=== PATIENT | male | born 1985 | race Caucasian/White ===

== ENCOUNTER 2016-08-26 20:36 | Emergency (ER) | payer MEDICAID, OTHER ==
[2016-08-26] MEDS ORDERED: Sodium Chloride 0.9% 1,000 ML IV ONE ×2 (20:41→21:56)
[2016-08-26] MEDS ORDERED: Sodium Chloride 0.9% 2.5 ML Syringe FLUSH PRN (20:41)
[2016-08-26] MEDS ORDERED: Sodium Chloride 0.9% 10 ML Syringe FLUSH PRN (20:41)
[2016-08-26] MEDS ORDERED: Thiamine 100 MG in Sodium Chloride 0.9% 100 ML IV ONE (20:41)
--- NOTE | 2016-08-26 20:44 | EDM.PDOC ---
ED HPI GENERAL MEDICAL PROBLEM - General Chief Complaint: Drug or Alcohol Abuse Stated Complaint: ALCOHOL WITHDRAWS Time Seen by Provider: 08/26/16 20:38 - History of Present Illness INITIAL COMMENTS - FREE TEXT/NARRATIVE: HISTORY AND PHYSICAL: History of present illness: Patient 31-year-old white male presents with a concern of alcohol abuse patient states she's been drinking has history of alcohol abuse he is down here for the last several weeks looking for work he is originally from [facility] he called paramedics from the hotel. He denies drug abuse or other concern Review of systems: As per history of present illness and below otherwise all systems reviewed and negative. Past medical history: As per history of present illness and as reviewed below otherwise noncontributory. Surgical history: As per history of present illness and as reviewed below otherwise noncontributory. Social history: No reported history of drug or alcohol abuse. Family history: As per history of present illness and as reviewed below otherwise noncontributory. Physical exam: HEENT: Atraumatic, normocephalic, pupils reactive, negative for conjunctival pallor or scleral icterus, mucous membranes moist, throat clear, neck supple, nontender, trachea midline. Lungs: Clear to auscultation, breath sounds equal bilaterally, chest nontender. Heart: S1S2, regular, negative for clicks, rubs, or JVD. Abdomen: Soft, nondistended, nontender. Negative for masses or hepatosplenomegaly. Negative for costovertebral tenderness. Pelvis: Stable nontender. Genitourinary: Deferred. Rectal: Deferred. Extremities: Atraumatic, negative for cords or calf pain. Neurovascular unremarkable. Neuro: Awake, answers questions follows commands moves all extremities limited but grossly nonfocal exam Diagnostics: CBC CMP Therapeutics: Normal saline 1 L bolus thiamine 100 mg IV Impression: #1 alcohol abuse Definitive disposition and diagnosis as appropriate pending reevaluation and review of above. - Related Data Allergies Allergy/AdvReac Type Severity Reaction Status Date / Time No Known Allergies Allergy Verified 08/26/16 21:14 Home Meds: Home Meds . [No Known Home Meds] 08/26/16 [History] Past Medical History HEENT History: Reports: None Cardiovascular History: Reports: None Respiratory History: Reports: None Gastrointestinal History: Reports: None Genitourinary History: Reports: None Musculoskeletal History: Reports: None Neurological History: Reports: Seizure, Other (See Below) Other Neuro History: alcohol induce seizure Psychiatric History: Reports: Addiction, Other (See Below) Other Psychiatric History: etoh abuse, states " have gone through withdrawls in the past". when pt asked if this felt like withdrawls he stated "no". Endocrine/Metabolic History: Reports: None Hematologic History: Reports: None Immunologic History: Reports: None Oncologic (Cancer) History: Reports: None Dermatologic History: Reports: None - Infectious Disease History Infectious Disease History: Reports: None - Past Surgical History HEENT Surgical History: Reports: None Cardiovascular Surgical History: Reports: None Respiratory Surgical History: Reports: None GI Surgical History: Reports: None Male Surgical History: Reports: None Neurological Surgical History: Reports: None Musculoskeletal Surgical History: Reports: None Oncologic Surgical History: Reports: None Social & Family History - Family History Cardiac: Reports: [place] Neurological: Reports: TIA Psychiatric: Reports: Other (See Below) Other Psychiatric Family History: etoh abuse - Tobacco Use Smoking Status *Q: Never Smoker Second Hand Smoke Exposure: No - Alcohol Use Days Per Week of Alcohol Use: 7 Number of Drinks Per Day: 12 Total Drinks Per Week: 84 - Recreational Drug Use Recreational Drug Use: No ED ROS GENERAL - Review of Systems Review Of Systems: ROS reveals no pertinent complaints other than HPI. ED EXAM, GENERAL - Physical Exam Exam: See Below (See dictation) Course - Vital Signs Last Recorded V/S: Last Vital Signs Temp 36.6 C 08/26/16 20:37 Pulse 89 08/27/16 02:46 Resp 14 08/27/16 02:46 BP 137/97 H 08/27/16 02:46 Pulse Ox 97 08/27/16 02:46 - Orders/Labs/Meds Labs: Laboratory Tests 08/26/16 08/26/16 Range/Units 20:45 20:45 WBC 10.81 (4.0-11.0) K/uL RBC 4.94 (4.50-5.90) M/uL Hgb 16.9 (13.0-17.0) g/dL Hct 49.2 (38.0-50.0) % MCV 99.6 H (80.0-98.0) fL MCH 34.2 H (27.0-32.0) pg MCHC 34.3 (31.0-37.0) g/dL RDW Std Deviation 49.3 (28.0-62.0) fl RDW Coeff of Jennifer 14 (11.0-15.0) % Plt Count 226 (150-400) K/uL MPV 9.80 (7.40-12.00) fL Neut % (Auto) 45.5 L (48.0-80.0) % Lymph % (Auto) 40.5 H (16.0-40.0) % Calloway % (Auto) 9.6 (0.0-15.0) % Eos % (Auto) 3.4 (0.0-7.0) % Baso % (Auto) 1.0 (0.0-1.5) % Neut # (Auto) 4.9 (1.4-5.7) K/uL Lymph # (Auto) 4.4 H (0.6-2.4) K/uL Calloway # (Auto) 1.0 H (0.0-0.8) K/uL Eos # (Auto) 0.4 (0.0-0.7) K/uL Baso # (Auto) 0.1 (0.0-0.1) K/uL Nucleated RBC % 0.0 /100WBC Nucleated RBCs # 0 K/uL Sodium 141 (136-146) mmol/L Potassium 4.0 (3.5-5.1) mmol/L Chloride 106 (98-110) mmol/L Carbon Dioxide 20 L (21-31) mmol/L BUN 5 L (6.0-23.0) mg/dL Creatinine 0.8 (0.6-1.5) mg/dL Est Cr Clr Drug Dosing 131.34 mL/min Estimated GFR (MDRD) > 60.0 ml/min Glucose 115 H (60-110) mg/dL Calcium 8.6 L (8.8-10.8) mg/dL Total Bilirubin 0.7 (0.1-1.5) mg/dL AST 227 H (5-40) IU/L ALT 102 H (8-54) IU/L Alkaline Phosphatase 164 H (40-150) Total Protein 7.8 (6.0-8.0) g/dL Albumin 3.7 (3.5-5.0) g/dL Globulin 4.1 H (2.0-3.5) g/dL Albumin/Globulin Ratio 0.9 L (1.3-2.8) Meds: Medications Discontinued Medications Generic Name Dose Route Start Last Admin Trade Name Matilde PRN Reason Stop Dose Admin Sodium Chloride 1,000 mls @ 999 mls/hr 08/26/16 20:41 08/26/16 20:48 Normal Saline IV 08/26/16 21:41 999 mls/hr STAT ONE Administration Thiamine HCl 100 mg/ Sodium 101 mls @ 999 mls/hr 08/26/16 20:41 08/26/16 21: 05 Chloride IV 08/26/16 20:47 999 mls/hr ONETIME ONE Administration Sodium Chloride 1,000 mls @ 100 mls/hr 08/26/16 21:56 08/26/16 22:18 Normal Saline IV 08/27/16 07:55 100 mls/hr .BOLUS ONE Administration Sodium Chloride 10 ml 08/26/16 20:41 Saline Flush FLUSH ASDIRECTED PRN Keep Vein Open Sodium Chloride 2.5 ml 08/26/16 20:41 Saline Flush FLUSH ASDIRECTED PRN Keep Vein Open Departure - Departure Time of Disposition: 02:00 Disposition: Home, Self-Care 01 Condition: Good Clinical Impression: Alcohol abuse - Discharge Information Instructions: Alcohol Use Disorder, Panic Attacks, [id number], Alcohol Intoxication, [id number], Finding Treatment for Addiction Referrals: PCP,None [Primary Care Provider] - Forms: ED Department Discharge Additional Instructions: Medications as prescribed. Follow up with primary care doctor 24-48 hrs. Stop drinking alcohol. Return to ED as needed as discussed.
[2016-08-26 21:09] LABS: CHLORIDE,CL 106 mmol/L (98-110); SODIUM,NA 141 mmol/L (136-146)
[2016-08-27 02:48] VITALS: BP 137/97
== END 2016-08-27 02:46 | disposition home or self-care (01) ==
LOC: MW.ED 20:36
DX: F10.10 Alcohol abuse, uncomplicated (principal)
CPT/HCPCS: 36415; 80053; 85025; 96361; 96374; 99285; J3411; J7030; J7040; 99284

== ENCOUNTER 2016-09-21 15:48 | Emergency (ER) | payer MEDICAID, OTHER ==
[2016-09-21] MEDS ORDERED: Sodium Chloride 0.9% 1,000 ML IV ONE (16:00)
--- NOTE | 2016-09-21 16:38 | EDM.PDOC ---
ED HPI GENERAL MEDICAL PROBLEM - General Chief Complaint: Drug or Alcohol Abuse Stated Complaint: ALCOHOL WITHDRAW Time Seen by Provider: 09/21/16 15:49 Source of Information: Reports: Patient History Limitations: Reports: No Limitations - History of Present Illness INITIAL COMMENTS - FREE TEXT/NARRATIVE: History of present illness: []Patient arrived by ambulance stating that he feels like he is going to have a seizure. Patient is a known alcoholic who states he had his last alcoholic drink at 1:00 this afternoon. Patient has a primary care doctor in [facility] who he states he has not seen in 6 years but has been prescribing him Ativan. He has lived here and [facility] for the last 6 years and fills his prescriptions in [place]. Patient is requesting admission and detox. He was admitted in August of last year for similar reasons and discharged on Ativan. Patient also coughed on the medic that brought him in and she is concerned about communicable disease exposures. Review of systems: As per history of present illness and below otherwise all systems reviewed and negative. Past medical history: As per history of present illness and as reviewed below otherwise noncontributory. Surgical history: As per history of present illness and as reviewed below otherwise noncontributory. Social history: No reported history of drug or alcohol abuse. Family history: As per history of present illness and as reviewed below otherwise noncontributory. Physical exam: General: Well developed, well nourished in NAD HEENT: Atraumatic, normocephalic, pupils reactive, negative for conjunctival pallor or scleral icterus, mucous membranes moist, throat clear, neck supple, nontender, trachea midline. Lungs: Clear to auscultation, breath sounds equal bilaterally, chest nontender. Heart: S1S2, regular, negative for clicks, rubs, or JVD. Abdomen: Soft, nondistended, nontender. Negative for masses or hepatosplenomegaly. Negative for costovertebral tenderness. Pelvis: Stable nontender. Genitourinary: Deferred. Rectal: Deferred. Extremities: Atraumatic, negative for cords or calf pain. Neurovascular unremarkable. Neuro: Awake, alert, oriented. Cranial nerves II through XII unremarkable. Cerebellum unremarkable. Motor and sensory unremarkable throughout. Exam nonfocal. Diagnostics: []Labs drawn as well as an exposure panel. Alcohol levels for 454 LFTs are elevated suggesting chronic alcoholism. Therapeutics: []IV hydrated, observed no seizures while in the ED. Impression: []Alcoholic withdrawal symptoms, alcoholic liver disease Plan: []Follow-up PMD with PMD Definitive disposition and diagnosis as appropriate pending reevaluation and review of above. - Related Data Allergies Allergy/AdvReac Type Severity Reaction Status Date / Time No Known Allergies Allergy Verified 09/21/16 16:36 Home Meds: Home Meds LORazepam [Ativan] 09/21/16 [History] chlordiazePOXIDE [Librium] 10 mg PO TID PRN #15 cap 09/21/16 [Rx] Past Medical History - Past Health History Medical/Surgical History: Denies Medical/Surgical History HEENT History: Reports: None Cardiovascular History: Reports: None Respiratory History: Reports: None Gastrointestinal History: Reports: None Genitourinary History: Reports: None Musculoskeletal History: Reports: None Neurological History: Reports: Seizure, Other (See Below) Other Neuro History: alcohol induce seizure Psychiatric History: Reports: Addiction, Other (See Below) Other Psychiatric History: etoh abuse, states " have gone through withdrawls in the past". when pt asked if this felt like withdrawls he stated "no". Endocrine/Metabolic History: Reports: None Hematologic History: Reports: None Immunologic History: Reports: None Oncologic (Cancer) History: Reports: None Dermatologic History: Reports: None - Infectious Disease History Infectious Disease History: Reports: None - Past Surgical History HEENT Surgical History: Reports: None Cardiovascular Surgical History: Reports: None Respiratory Surgical History: Reports: None GI Surgical History: Reports: None Male Surgical History: Reports: None Neurological Surgical History: Reports: None Musculoskeletal Surgical History: Reports: None Oncologic Surgical History: Reports: None Social & Family History - Family History Family Medical History: Noncontributory Cardiac: Reports: [place] Neurological: Reports: TIA Psychiatric: Reports: Other (See Below) Other Psychiatric Family History: etoh abuse - Tobacco Use Smoking Status *Q: Never Smoker Second Hand Smoke Exposure: No - Caffeine Use Caffeine Use: Reports: None - Alcohol Use Days Per Week of Alcohol Use: 7 Number of Drinks Per Day: 12 Total Drinks Per Week: 84 - Recreational Drug Use Recreational Drug Use: No ED ROS GENERAL - Review of Systems Review Of Systems: See Below (See history of present illness) ED EXAM, GENERAL - Physical Exam Exam: See Below (See history of present illness) Course - Vital Signs Last Recorded V/S: Last Vital Signs Temp 36.6 C 09/21/16 16:30 Pulse 89 09/21/16 17:11 Resp 18 09/21/16 17:11 BP 104/64 09/21/16 17:11 Pulse Ox 95 09/21/16 17:11 - Orders/Labs/Meds Orders: Active Orders 24 hr Category Date Time Status HEP B SURFACE AB,QNT [REF] Stat Lab 09/21/16 16:10 Received HEPATITIS C AB [REF] Stat Lab 09/21/16 16:10 Received HIV12 AG/AB 4TH GEN W/REFLEX [CHEM] Stat Lab 09/21/16 16:10 Received Saline Lock Insert [OM.PC] Stat Oth 09/21/16 15:59 Ordered Labs: Laboratory Tests 09/21/16 Range/Units 16:10 Sodium 139 (136-146) mmol/L Potassium 3.7 (3.5-5.1) mmol/L Chloride 95 L (98-110) mmol/L Carbon Dioxide 25 (21-31) mmol/L BUN 6 (6.0-23.0) mg/dL Creatinine 0.8 (0.6-1.5) mg/dL Est Cr Clr Drug Dosing 131.34 mL/min Estimated GFR (MDRD) > 60.0 ml/min Glucose 106 (60-110) mg/dL Calcium 8.6 L (8.8-10.8) mg/dL Total Bilirubin 2.6 H (0.1-1.5) mg/dL AST 289 H (5-40) IU/L ALT 126 H (8-54) IU/L Alkaline Phosphatase 145 (40-150) Total Protein 8.2 H (6.0-8.0) g/dL Albumin 3.9 (3.5-5.0) g/dL Globulin 4.3 H (2.0-3.5) g/dL Albumin/Globulin Ratio 0.9 L (1.3-2.8) Ethyl Alcohol 454.5 mg/dL Meds: Medications Discontinued Medications Generic Name Dose Route Start Last Admin Trade Name Freq PRN Reason Stop Dose Admin Chlordiazepoxide HCl 10 mg 09/21/16 16:44 09/21/16 17:19 Librium PO 09/21/16 16:45 10 mg ONETIME ONE Administration Sodium Chloride 1,000 mls @ 999 mls/hr 09/21/16 16:00 09/21/16 16:28 Normal Saline IV 09/21/16 17:00 999 mls/hr .Bolus ONE Administration Departure - Departure Time of Disposition: 17:56 Disposition: Home, Self-Care 01 Condition: Good, Fair Clinical Impression: Alcoholism /alcohol abuse, Alcoholic liver disease, unspecified - Discharge Information Prescriptions: chlordiazePOXIDE [Librium] 10 mg PO TID PRN #15 cap PRN Reason: Agitation Referrals: PCP,None [Primary Care Provider] - Forms: ED Department Discharge Additional Instructions: The following information is given to patients seen in the emergency department who are being discharged to home. This information is to outline your options for follow-up care. We provide all patients seen in our emergency department with a follow-up referral. The need for follow-up, as well as the timing and circumstances, are variable depending upon the specifics of your emergency department visit. If you don't have a primary care physician on staff, we will provide you with a referral. We always advise you to contact your personal physician following an emergency department visit to inform them of the circumstance of the visit and for follow-up with them and/or the need for any referrals to a consulting specialist. The emergency department will also refer you to a specialist when appropriate. This referral assures that you have the opportunity for follow-up care with a specialist. All of these measure are taken in an effort to provide you with optimal care, which includes your follow-up. Under all circumstances we always encourage you to contact your private physician who remains a resource for coordinating your care. When calling for follow-up care, please make the office aware that this follow-up is from your recent emergency room visit. If for any reason you are refused follow-up, please contact the [facility] Emergency Department at and asked to speak to the emergency department charge nurse. Librium for withdrawal symptoms. Stop drinking alcohol. [facility] [address] [place] [id number] - My Orders Last 24 Hours: My Active Orders 09/21/16 15:59 Saline Lock Insert [OM.PC] Stat 09/21/16 16:10 HEP B SURFACE AB,QNT [REF] Stat HEPATITIS C AB [REF] Stat HIV12 AG/AB 4TH GEN W/REFLEX [CHEM] Stat - Assessment/Plan Last 24 Hours: My Active Orders 09/21/16 15:59 Saline Lock Insert [OM.PC] Stat 09/21/16 16:10 HEP B SURFACE AB,QNT [REF] Stat HEPATITIS C AB [REF] Stat HIV12 AG/AB 4TH GEN W/REFLEX [CHEM] Stat
[2016-09-21 16:43] LABS: CHLORIDE,CL 95 mmol/L (98-110); SODIUM,NA 139 mmol/L (136-146)
[2016-09-21] MEDS ORDERED: chlordiazePOXIDE 10 MG Cap PO ONE (16:44)
[2016-09-21 18:40] VITALS: BP 117/63
== END 2016-09-21 18:26 | disposition home or self-care (01) ==
LOC: MW.ED 15:48
DX: K70.9 Alcoholic liver disease, unspecified (principal); F10.239 Alcohol dependence with withdrawal, unspecified
CPT/HCPCS: 36415; 80053; 86706; 86803; 87389; 96360; 99285; A9270; G0480; J7040; 99283

== ENCOUNTER 2016-09-22 15:03 | Emergency (ER) | payer MEDICAID, OTHER ==
[2016-09-22] MEDS ORDERED: Ondansetron 4 MG Tab.DIS PO ONE ×3 (15:16→16:23)
--- NOTE | 2016-09-22 15:18 | EDM.PDOC ---
ED HPI GENERAL MEDICAL PROBLEM - General Chief Complaint: Drug or Alcohol Abuse Stated Complaint: WITHDRAWLS Time Seen by Provider: 09/22/16 15:30 Source of Information: Reports: Patient History Limitations: Reports: Intoxication - History of Present Illness INITIAL COMMENTS - FREE TEXT/NARRATIVE: History of present illness: []Patient has an admitted alcoholic who states that he has been receiving Ativan prescriptions from her primary care doctor in [place] for years. He arrived by EMS yesterday for the same reason of "not feeling well". Yesterday's alcohol level was 454 and his labs showed mild signs of alcoholic liver disease but otherwise normal. He was discharged and given a taxi ride home. He did not fill his prescription for Librium, he states that he drank at 2 PM today and again feels "not well". He has not had a seizure, trauma, vomiting, or syncope. He does complain of some nausea now. Review of systems: As per history of present illness and below otherwise all systems reviewed and negative. Past medical history: As per history of present illness and as reviewed below otherwise noncontributory. Surgical history: As per history of present illness and as reviewed below otherwise noncontributory. Social history: No reported history of drug or alcohol abuse. Family history: As per history of present illness and as reviewed below otherwise noncontributory. Physical exam: General: Well developed, well nourished in NAD HEENT: Atraumatic, normocephalic, pupils reactive, negative for conjunctival pallor or scleral icterus, mucous membranes moist, throat clear, neck supple, nontender, trachea midline. Lungs: Clear to auscultation, breath sounds equal bilaterally, chest nontender. Heart: S1S2, regular, negative for clicks, rubs, or JVD. Abdomen: Soft, nondistended, nontender. Negative for masses or hepatosplenomegaly. Negative for costovertebral tenderness. Pelvis: Stable nontender. Genitourinary: Deferred. Rectal: Deferred. Extremities: Atraumatic, negative for cords or calf pain. Neurovascular unremarkable. Neuro: Awake, alert, oriented. Cranial nerves II through XII unremarkable. Cerebellum unremarkable. Motor and sensory unremarkable throughout. Exam nonfocal. Diagnostics: []Vital signs stable patient observed Therapeutics: []Zofran and PO hydration, psychiatric social worker supervisor consulted, Detox center in [place] was contacted and does not have any available beds. Patient vomited after Zofran PO. I spoke with his mother in [place] about his situation and she offered her credit card to help pay for any medications or transportation to and from the hospital that he may need. Impression: []Chronic alcoholism Plan: []Fill your prescriptions and stop drinking alcohol. Call PMD for follow-up or contact detox center, or a local [facility]avian for support Definitive disposition and diagnosis as appropriate pending reevaluation and review of above. - Related Data Allergies Allergy/AdvReac Type Severity Reaction Status Date / Time No Known Allergies Allergy Verified 09/22/16 15:05 Home Meds: Home Meds chlordiazePOXIDE [Librium] 10 mg PO TID PRN #15 cap 09/22/16 [Rx] Past Medical History - Past Health History Medical/Surgical History: Denies Medical/Surgical History HEENT History: Reports: None Cardiovascular History: Reports: None Respiratory History: Reports: None Gastrointestinal History: Reports: None Genitourinary History: Reports: None Musculoskeletal History: Reports: None Neurological History: Reports: Seizure, Other (See Below) Other Neuro History: alcohol induce seizure Psychiatric History: Reports: Addiction, Anxiety, Depression, Other (See Below) Other Psychiatric History: etoh abuse, states " have gone through withdrawls in the past". when pt asked if this felt like withdrawls he stated "no". Endocrine/Metabolic History: Reports: None Hematologic History: Reports: None Immunologic History: Reports: None Oncologic (Cancer) History: Reports: None Dermatologic History: Reports: None - Infectious Disease History Infectious Disease History: Reports: None - Past Surgical History HEENT Surgical History: Reports: None Cardiovascular Surgical History: Reports: None Respiratory Surgical History: Reports: None GI Surgical History: Reports: None Male Surgical History: Reports: None Neurological Surgical History: Reports: None Musculoskeletal Surgical History: Reports: None Oncologic Surgical History: Reports: None Social & Family History - Family History Family Medical History: Noncontributory Cardiac: Reports: [place] Neurological: Reports: TIA Psychiatric: Reports: Other (See Below) Other Psychiatric Family History: etoh abuse - Tobacco Use Smoking Status *Q: Never Smoker Second Hand Smoke Exposure: No - Caffeine Use Caffeine Use: Reports: None - Alcohol Use Days Per Week of Alcohol Use: 7 Number of Drinks Per Day: 12 Total Drinks Per Week: 84 - Recreational Drug Use Recreational Drug Use: No ED ROS GENERAL - Review of Systems Review Of Systems: See Below (See history of present illness) ED EXAM, GENERAL - Physical Exam Exam: See Below (See history of present illness) Course - Vital Signs Last Recorded V/S: Last Vital Signs Temp 36.4 C 09/22/16 15:03 Pulse 97 09/22/16 17:31 Resp 16 09/22/16 17:31 BP 137/93 H 09/22/16 17:31 Pulse Ox 94 L 09/22/16 17:31 - Orders/Labs/Meds Orders: Active Orders 24 hr Category Date Time Status Consult to Gis Database Administrator [CONS] Routine Cons 09/22/16 15:29 Active MVI, Adult with Vitamin K [Infuvite Adult] 10 ml Med 09/22/16 16:48 Active Thiamine [Vitamin B-1] 100 mg Folic Acid 1 mg Sodium Chloride 0.9% [Normal Saline] 1,000 ml IV ONETIME Medication Orders Multivitamins/Minerals 10 ml/Thiamine HCl 100 mg/ Folic Acid 1 mg/ Sodium Chloride 1,011.2 mls @ 999 mls/hr IV ONETIME ONE Stop: 09/22/16 17:48 Last Admin: 09/22/16 17:01 Dose: 999 mls/hr Meds: Medications Generic Name Dose Route Start Last Admin Trade Name Freq PRN Reason Stop Dose Admin Multivitamins/Minerals 10 ml/ 1,011.2 mls @ 999 mls/hr 09/22/16 16:48 17:01 Thiamine HCl 100 mg/ Folic IV 09/22/16 17:48 999 mls/hr Acid 1 mg/ Sodium Chloride ONETIME ONE Administration Discontinued Medications Generic Name Dose Route Start Last Admin Trade Name Freq PRN Reason Stop Dose Admin Sodium Chloride 1,000 mls @ 999 mls/hr 09/22/16 16:22 09/22/16 16:56 Normal Saline IV 09/22/16 17:22 999 mls/hr NOW STA Administration Multivitamins/Minerals/Vitamin C 1 tab 09/22/16 15:37 09/22/16 16:28 Tab-A-Earle PO 09/22/16 15:38 1 tab DAILY ONE Administration Ondansetron HCl 4 mg 09/22/16 15:16 09/22/16 17:31 Zofran Odt PO 09/22/16 15:17 Not Given ONETIME ONE Ondansetron HCl 4 mg 09/22/16 15:17 09/22/16 15:20 Zofran Odt PO 09/22/16 15:18 4 mg ONETIME ONE Administration Ondansetron HCl 4 mg 09/22/16 16:23 09/22/16 16:27 Zofran Odt PO 09/22/16 16:24 4 mg ONETIME ONE Administration Thiamine HCl 100 mg 09/22/16 15:37 09/22/16 16:28 Vitamin B-1 PO 09/22/16 15:38 100 mg ONETIME ONE Administration Departure - Departure Time of Disposition: 17:50 Disposition: Home, Self-Care 01 Condition: Good, Fair Clinical Impression: Alcohol abuse - Discharge Information Prescriptions: chlordiazePOXIDE [Librium] 10 mg PO TID PRN #15 cap PRN Reason: Agitation Forms: ED Department Discharge Additional Instructions: The following information is given to patients seen in the emergency department who are being discharged to home. This information is to outline your options for follow-up care. We provide all patients seen in our emergency department with a follow-up referral. The need for follow-up, as well as the timing and circumstances, are variable depending upon the specifics of your emergency department visit. If you don't have a primary care physician on staff, we will provide you with a referral. We always advise you to contact your personal physician following an emergency department visit to inform them of the circumstance of the visit and for follow-up with them and/or the need for any referrals to a consulting specialist. The emergency department will also refer you to a specialist when appropriate. This referral assures that you have the opportunity for follow-up care with a specialist. All of these measure are taken in an effort to provide you with optimal care, which includes your follow-up. Under all circumstances we always encourage you to contact your private physician who remains a resource for coordinating your care. When calling for follow-up care, please make the office aware that this follow-up is from your recent emergency room visit. If for any reason you are refused follow-up, please contact the [facility] Emergency Department at and asked to speak to the emergency department charge nurse. Taken Librium as directed, stop drinking alcohol follow-up with a regular doctor [facility] [address] [place] [id number] - My Orders Last 24 Hours: My Active Orders 09/22/16 15:29 Consult to Gis Database Administrator [CONS] Routine 09/22/16 16:48 MVI, Adult with Vitamin K [Infuvite Adult] 10 ml Thiamine [Vitamin B-1] 100 mg Folic Acid 1 mg Sodium Chloride 0.9% [Normal Saline] 1,000 ml IV ONETIME - Assessment/Plan Last 24 Hours: My Active Orders 09/22/16 15:29 Consult to Gis Database Administrator [CONS] Routine 09/22/16 16:48 MVI, Adult with Vitamin K [Infuvite Adult] 10 ml Thiamine [Vitamin B-1] 100 mg Folic Acid 1 mg Sodium Chloride 0.9% [Normal Saline] 1,000 ml IV ONETIME
[2016-09-22] MEDS ORDERED: Thiamine 100 MG Tab PO ONE (15:37)
[2016-09-22] MEDS ORDERED: Multivitamin Tab PO ONE (15:37)
[2016-09-22] MEDS ORDERED: Sodium Chloride 0.9% 1,000 ML IV STA (16:22)
[2016-09-22] MEDS ORDERED: MVI, Adult with Vitamin K 10 ML, Thiamine 100 MG, Folic Acid 1 MG in Sodium Chloride 0.... IV ONE ×4 (16:48)
[2016-09-22 17:45] VITALS: BP 134/90
== END 2016-09-22 17:56 | disposition home or self-care (01) ==
LOC: MW.ED 15:03
DX: F10.20 Alcohol dependence, uncomplicated (principal)
CPT/HCPCS: 96365; 99285; A9270; J3411; J7040; 99283

== ENCOUNTER 2016-09-24 20:19 | Inpatient (IN) | payer MEDICAID, OTHER ==
[2016-09-24] MEDS ORDERED: LORazepam 2 MG/ML MDV IVPUSH ONE ×2 (20:36→21:42)
[2016-09-24] MEDS ORDERED: Pantoprazole 80 MG in Sodium Chloride 0.9% 10 ML IVPUSH ONE (21:00)
[2016-09-24] MEDS ORDERED: Sodium Chloride 0.9% 1,000 ML IV ONE (21:00)
[2016-09-24 21:18] LABS: CHLORIDE,CL 98 mmol/L (98-110); SODIUM,NA 141 mmol/L (136-146)
--- NOTE | 2016-09-24 21:33 | EDM.PDOC ---
ED HPI GENERAL MEDICAL PROBLEM - General Chief Complaint: Drug or Alcohol Abuse Stated Complaint: ALCOHOL ABUSE Time Seen by Provider: 09/24/16 20:30 Source of Information: Reports: Patient, RN - History of Present Illness INITIAL COMMENTS - FREE TEXT/NARRATIVE: He was brought to the hospital by EMS . He called requesting transport to the hospital because he desires alcohol detoxification. He states that he had several drinks today; but when asked, he did not tell me what kind of alcoholic beverages he was drinking. He has a history of alcohol abuse He states that he has some abdominal pain. - Related Data Allergies Allergy/AdvReac Type Severity Reaction Status Date / Time No Known Allergies Allergy Verified 09/24/16 20:29 Home Meds: Home Meds chlordiazePOXIDE [Librium] 10 mg PO TID PRN #15 cap 09/22/16 [Rx] Past Medical History - Past Health History Medical/Surgical History: Denies Medical/Surgical History HEENT History: Reports: None Cardiovascular History: Reports: None Respiratory History: Reports: None Gastrointestinal History: Reports: None Genitourinary History: Reports: None Musculoskeletal History: Reports: None Neurological History: Reports: Seizure, Other (See Below) Other Neuro History: alcohol withdrawl seizure in the past. Psychiatric History: Reports: Addiction, Anxiety, Depression, Other (See Below) Other Psychiatric History: pt states he's gone thru ETOH widrawals in the past Endocrine/Metabolic History: Reports: None Hematologic History: Reports: None Immunologic History: Reports: None Oncologic (Cancer) History: Reports: None Dermatologic History: Reports: None - Infectious Disease History Infectious Disease History: Reports: Chicken Pox - Past Surgical History HEENT Surgical History: Reports: None Cardiovascular Surgical History: Reports: None Respiratory Surgical History: Reports: None GI Surgical History: Reports: None Male Surgical History: Reports: None Neurological Surgical History: Reports: None Musculoskeletal Surgical History: Reports: None Oncologic Surgical History: Reports: None Social & Family History - Family History Family Medical History: Noncontributory Cardiac: Reports: [place] Neurological: Reports: TIA Psychiatric: Reports: Other (See Below) Other Psychiatric Family History: etoh abuse - Tobacco Use Smoking Status *Q: Never Smoker Second Hand Smoke Exposure: No - Caffeine Use Caffeine Use: Reports: None - Alcohol Use Days Per Week of Alcohol Use: 7 Number of Drinks Per Day: 3 Total Drinks Per Week: 21 - Recreational Drug Use Recreational Drug Use: No ED ROS GENERAL - Review of Systems Review Of Systems: See Below Constitutional: Denies: Fever, Chills Respiratory: Denies: Shortness of Breath, Cough, Sputum, Hemoptysis Cardiovascular: Denies: Chest Pain GI/Abdominal: Reports: Abdominal Pain - Physical Exam Exam: See Below Text/Narrative:: His eyes are open. He has paucity of speech and does not answer some questions He denies a history of schizophrenia he admits to a history of depression moist oral mucosa lungs CTA heart RRR without m abdomen: soft with mild diffuse tenderness not easily reproducible no ankle edema capillary refill toes about 3 seconds no motor asymmetry slightly tremulous initially but improved after IV ativan. Course - Vital Signs Last Recorded V/S: Last Vital Signs Temp 98.4 F 09/24/16 20:19 Pulse 95 09/24/16 20:45 Resp 14 09/24/16 20:45 BP 129/88 09/24/16 20:45 Pulse Ox 98 09/24/16 20:45 - Orders/Labs/Meds Orders: Active Orders 24 hr Category Date Time Status DRUG SCREEN, URINE [URCHEM] Stat Lab 09/24/16 20:58 Uncollected UA W/MICROSCOPIC [URIN] Stat Lab 09/24/16 20:58 Uncollected Sodium Chloride 0.9% [Normal Saline] 1,000 ml Med 09/24/16 21:00 Active IV .Bolus Medication Orders Sodium Chloride (Normal Saline) 1,000 mls @ 250 mls/hr IV .Bolus ONE Stop: 09/25/16 00:59 Labs: Laboratory Tests 09/24/16 09/24/16 09/24/16 Range/Units 20:24 20:24 20:24 WBC 7.39 (4.0-11.0) K/uL RBC 4.89 (4.50-5.90) M/uL Hgb 16.7 (13.0-17.0) g/dL Hct 46.9 (38.0-50.0) % MCV 95.9 (80.0-98.0) fL MCH 34.2 H (27.0-32.0) pg MCHC 35.6 (31.0-37.0) g/dL RDW Std Deviation 47.0 (28.0-62.0) fl RDW Coeff of Jennifer 13 (11.0-15.0) % Plt Count 133 L (150-400) K/uL MPV 10.30 (7.40-12.00) fL Neut % (Auto) 60.1 (48.0-80.0) % Lymph % (Auto) 28.0 (16.0-40.0) % [place] % (Auto) 9.1 (0.0-15.0) % Eos % (Auto) 1.4 (0.0-7.0) % Baso % (Auto) 1.4 (0.0-1.5) % Neut # (Auto) 4.5 (1.4-5.7) K/uL Lymph # (Auto) 2.1 (0.6-2.4) K/uL [place] # (Auto) 0.7 (0.0-0.8) K/uL Eos # (Auto) 0.1 (0.0-0.7) K/uL Baso # (Auto) 0.1 (0.0-0.1) K/uL Nucleated RBC % 0.0 /100WBC Nucleated RBCs # 0 K/uL INR 1.23 H (0.86-1.11) Sodium 141 (136-146) mmol/L Potassium 3.2 L (3.5-5.1) mmol/L Chloride 98 (98-110) mmol/L Carbon Dioxide 26 (21-31) mmol/L BUN 2 L (6.0-23.0) mg/dL Creatinine 0.7 (0.6-1.5) mg/dL Est Cr Clr Drug Dosing 150.10 mL/min Estimated GFR (MDRD) > 60.0 ml/min Glucose 113 H (60-110) mg/dL Calcium 8.7 L (8.8-10.8) mg/dL Total Bilirubin 3.5 H (0.1-1.5) mg/dL AST 497 H (5-40) IU/L ALT 166 H (8-54) IU/L Alkaline Phosphatase 137 (40-150) Total Protein 8.0 (6.0-8.0) g/dL Albumin 3.9 (3.5-5.0) g/dL Globulin 4.1 H (2.0-3.5) g/dL Albumin/Globulin Ratio 1.0 L (1.3-2.8) Amylase 22 (10-90) U/L Lipase 18 (7-80) U/L Ethyl Alcohol 385.1 mg/dL Meds: Medications Generic Name Dose Route Start Last Admin Trade Name Matilde PRN Reason Stop Dose Admin Sodium Chloride 1,000 mls @ 250 mls/hr 09/24/16 21:00 Normal Saline IV 09/25/16 00:59 .Bolus ONE Discontinued Medications Generic Name Dose Route Start Last Admin Trade Name Matilde PRN Reason Stop Dose Admin Pantoprazole Sodium 80 mg/ 10 mls @ 300 mls/hr 09/24/16 21:00 Sodium Chloride IVPUSH 09/24/16 21:01 NOW ONE Lorazepam 1 mg 09/24/16 20:36 09/24/16 20:43 Ativan IVPUSH 09/24/16 20:37 1 mg ONETIME ONE Administration - Re-Assessments/Exams Free Text/Narrative Re-Assessment/Exam: 09/24/16 21:36 I advised patient that we will admit to the hospital. Departure - Departure Time of Disposition: 21:36 Disposition: Admitted As Inpatient 64 Condition: Fair Clinical Impression: Alcoholism /alcohol abuse - Discharge Information Forms: ED Department Discharge - My Orders Last 24 Hours: My Active Orders 09/24/16 20:58 DRUG SCREEN, URINE [URCHEM] Stat UA W/MICROSCOPIC [URIN] Stat 09/24/16 21:00 Sodium Chloride 0.9% [Normal Saline] 1,000 ml IV .Bolus - Assessment/Plan Last 24 Hours: My Active Orders 09/24/16 20:58 DRUG SCREEN, URINE [URCHEM] Stat UA W/MICROSCOPIC [URIN] Stat 09/24/16 21:00 Sodium Chloride 0.9% [Normal Saline] 1,000 ml IV .Bolus
[2016-09-24] MEDS ORDERED: Ondansetron 4 MG/2 ML SDV IVPUSH PRN (21:37)
[2016-09-24] MEDS ORDERED: LORazepam 2 MG/ML MDV ONE (21:39)
[2016-09-24] MEDS ORDERED: NS + KCl 20mEq/L 1,000 ML IV SCH (21:45)
[2016-09-24] MEDS: MVI, Adult with Vitamin K 10 ML, Thiamine 100 MG, Folic Acid 1 MG in Sodium Chloride 0.... IV ONE ×8 (23:21→23:53)
[2016-09-24] MEDS ORDERED: Potassium Chloride 20 MEQ Tab.ER PO ONE (23:34)
[2016-09-25] MEDS: LORazepam 2 MG/ML MDV IV PRN ×9 (01:47→22:25)
[2016-09-25 05:30] LABS: CHLORIDE,CL 102 mmol/L (98-110); SODIUM,NA 140 mmol/L (136-146)
[2016-09-25] MEDS ORDERED: Magnesium Sulfate/Water 2 GM in Premix Bag 1 BAG IV ONE ×2 (06:18→08:45)
[2016-09-25] MEDS ORDERED: Potassium Chloride 20 MEQ Tab.ER PO ONE (06:19)
[2016-09-25] MEDS: Thiamine 200 MG/2 ML MDV IVPUSH SCH (08:00)
[2016-09-25] MEDS: Folic Acid 1 MG Tab PO SCH (08:00)
[2016-09-25] MEDS ORDERED: Pantoprazole 40 MG Vial IV SCH (09:00)
[2016-09-25] MEDS: Pantoprazole 40 MG in Sodium Chloride 0.9% 10 ML IV SCH ×2 (09:07→20:22)
--- NOTE | 2016-09-25 09:57 | PCM.HP ---
H&P History of Present Illness - General Date of Service: 09/25/16 - History of Present Illness Initial Comments - Free Text/Narative: 31 yo male with history of alcohol abuse admitted alcohol detoxification. He states he has been drinking half gallon of vodka daily. He attempted to quit on his own but failed. He would like to receive help to a rehab program in [place] called [facility]. He states librium does not work for him due to intolerance and black outs. In the ED his blood alcohol level is 385.1. AST 361 ALT 129. Total bilirubin was elevated, low magnesium and low potassium. CBC unremarkable. He was started IVF and banabag along with replacement of electrolytes. His CIWAA score on admission 6. He is placed on ativan protocol. - Related Data Allergies/Adverse Reactions: Allergies Allergy/AdvReac Type Severity Reaction Status Date / Time No Known Allergies Allergy Verified 09/24/16 20:29 Home Medications: Home Meds chlordiazePOXIDE [Librium] 10 mg PO TID PRN #15 cap 09/22/16 [Rx] Past Medical History - Past Health History Medical/Surgical History: Denies Medical/Surgical History HEENT History: Reports: None Cardiovascular History: Reports: None Respiratory History: Reports: None Gastrointestinal History: Reports: None Genitourinary History: Reports: None Musculoskeletal History: Reports: None Neurological History: Reports: Seizure, Other (See Below) Other Neuro History: alcohol withdrawl seizure in the past. Psychiatric History: Reports: Addiction, Anxiety, Depression, Other (See Below) Other Psychiatric History: pt states he's gone thru ETOH widrawals in the past Endocrine/Metabolic History: Reports: None Hematologic History: Reports: None Immunologic History: Reports: None Oncologic (Cancer) History: Reports: None Dermatologic History: Reports: None - Infectious Disease History Infectious Disease History: Reports: Chicken Pox - Past Surgical History HEENT Surgical History: Reports: None Cardiovascular Surgical History: Reports: None Respiratory Surgical History: Reports: None GI Surgical History: Reports: None Male Surgical History: Reports: None Neurological Surgical History: Reports: None Musculoskeletal Surgical History: Reports: None Oncologic Surgical History: Reports: None Social & Family History - Family History Family Medical History: Noncontributory Cardiac: Reports: [place] Neurological: Reports: TIA Psychiatric: Reports: Other (See Below) Other Psychiatric Family History: etoh abuse - Tobacco Use Smoking Status *Q: Never Smoker Second Hand Smoke Exposure: No - Caffeine Use Caffeine Use: Reports: None - Alcohol Use Days Per Week of Alcohol Use: 7 Number of Drinks Per Day: 3 Total Drinks Per Week: 21 Date of Last Drink: 09/24/16 - Recreational Drug Use Recreational Drug Use: No H&P Review of Systems - Review of Systems: Review Of Systems: See Below General: Reports: No Symptoms HEENT: Reports: No Symptoms Pulmonary: Reports: No Symptoms Cardiovascular: Reports: No Symptoms Gastrointestinal: Reports: Abdominal Pain Musculoskeletal: Reports: No Symptoms Skin: Reports: No Symptoms Psychiatric: Reports: No Symptoms Neurological: Reports: Tremors Exam - Exam Exam: See Below - Vital Signs Vital Signs: Last Vital Signs Temp 97.9 F 09/25/16 08:00 Pulse 111 H 09/24/16 21:47 Resp 22 H 09/25/16 08:00 BP 133/101 H 09/25/16 08:00 Pulse Ox 95 09/25/16 08:00 Weight: 106.6 kg - Exam General: Alert, Oriented, Cooperative HEENT: EOMI, Hearing Intact Neck: Supple, Trachea Midline Lungs: Clear to Auscultation, Normal Respiratory Effort Cardiovascular: Regular Rate, Tachycardia GI/Abdominal Exam: Normal Bowel Sounds, Soft, Other (diffuse nonspecif abodminal tenderness) Back Exam: Normal Inspection Extremities: Normal Inspection Skin: Warm, Dry, Intact Neurological: Cranial Nerves Intact - Patient Data Lab Results Last 24 hrs: Laboratory Results - last 24 hr 09/25/16 09/25/16 Range/Units 04:33 04:33 WBC 4.43 (4.0-11.0) K/uL RBC 4.00 L (4.50-5.90) M/uL Hgb 13.5 (13.0-17.0) g/dL Hct 39.3 (38.0-50.0) % MCV 98.3 H (80.0-98.0) fL MCH 33.8 H (27.0-32.0) pg MCHC 34.4 (31.0-37.0) g/dL RDW Std Deviation 49.3 (28.0-62.0) fl RDW Coeff of Jennifer 14 (11.0-15.0) % Plt Count 91 L (150-400) K/uL MPV 10.40 (7.40-12.00) fL Neut % (Auto) 60.4 (48.0-80.0) % Lymph % (Auto) 27.8 (16.0-40.0) % [place] % (Auto) 7.2 (0.0-15.0) % Eos % (Auto) 3.2 (0.0-7.0) % Baso % (Auto) 1.4 (0.0-1.5) % Neut # (Auto) 2.7 (1.4-5.7) K/uL Lymph # (Auto) 1.2 (0.6-2.4) K/uL [place] # (Auto) 0.3 (0.0-0.8) K/uL Eos # (Auto) 0.1 (0.0-0.7) K/uL Baso # (Auto) 0.1 (0.0-0.1) K/uL Nucleated RBC % 0.0 /100WBC Nucleated RBCs # 0 K/uL Sodium 140 (136-146) mmol/L Potassium 3.1 L (3.5-5.1) mmol/L Chloride 102 (98-110) mmol/L Carbon Dioxide 25 (21-31) mmol/L BUN 2 L (6.0-23.0) mg/dL Creatinine 0.7 (0.6-1.5) mg/dL Est Cr Clr Drug Dosing 149.59 mL/min Estimated GFR (MDRD) > 60.0 ml/min Glucose 100 (60-110) mg/dL Calcium 7.6 L (8.8-10.8) mg/dL Magnesium 1.1 L (1.5-2.3) mEq/L Total Bilirubin 3.3 H (0.1-1.5) mg/dL AST 361 H (5-40) IU/L ALT 129 H (8-54) IU/L Alkaline Phosphatase 112 (40-150) Total Protein 6.2 (6.0-8.0) g/dL Albumin 3.2 L (3.5-5.0) g/dL Globulin 3.0 (2.0-3.5) g/dL Albumin/Globulin Ratio 1.1 L (1.3-2.8) Result Diagrams: 09/25/16 04:33 09/25/16 10:04 *Q Meaningful Use (ADM) - VTE *Q VTE Criteria *Q: - Stroke *Q Stroke Criteria *Q: - AMI *Q AMI Criteria *Q: Problem List Initiated/Reviewed/Updated: Yes Orders Last 24hrs: Active Orders 24 hr Category Date Time Status Antiembolic Devices [RC] PER UNIT ROUTINE Care 09/25/16 06:20 Active BASIC METABOLIC PANEL,BMP [CHEM] Routine Lab 09/25/16 10:00 Ordered MAGNESIUM [CHEM] Timed Lab 09/25/16 10:00 Ordered Folic Acid Med 09/25/16 09:00 Active 1 mg PO DAILY Magnesium Sulfate/Water [Magnesium Sulfate 2 GM in Med 09/25/16 08:45 Active Water 50 ML] 2 gm Premix Bag 1 bag IV ONETIME Pantoprazole [ProTONIX IV] 40 mg Med 09/25/16 09:00 Active Sodium Chloride 0.9% [Normal Saline] 10 ml IV Q12H Thiamine [Vitamin B-1] Med 09/25/16 09:00 Active 100 mg IVPUSH DAILY SCD [Sequential Compression Device] [OM.PC] Routine Oth 09/25/16 06:20 Ordered Medication Orders Folic Acid (Folic Acid) 1 mg PO DAILY [facility] Last Admin: 09/25/16 08:00 Dose: 1 mg Potassium Chloride/Sodium Chloride (Normal Saline With 20 Meq Kcl) 1,000 mls @ 150 mls/hr IV ASDIRECTED [facility] Last Admin: 09/25/16 04:58 Dose: 150 mls/hr Magnesium Sulfate 2 gm/ Premix 50 mls @ 50 mls/hr IV ONETIME ONE Stop: 09/25/16 09:44 Last Admin: 09/25/16 09:15 Dose: 50 mls/hr Pantoprazole Sodium 40 mg/ (Sodium Chloride) 10 mls @ 300 mls/hr IV Q12H TAMMIE Last Admin: 09/25/16 09:07 Dose: 300 mls/hr Lorazepam (Ativan) 0 mg IV Q1H PRN; Protocol PRN Reason: Other Last Admin: 09/25/16 09:20 Dose: 1 mg Admin: 09/25/16 07:59 Dose: 1 mg Admin: 09/25/16 03:56 Dose: 1 mg Admin: 09/25/16 01:47 Dose: 1 mg Ondansetron HCl (Zofran) 4 mg IVPUSH Q4H PRN PRN Reason: Nausea Thiamine HCl (Vitamin B-1) 100 mg IVPUSH DAILY TAMMIE Last Admin: 09/25/16 08:00 Dose: 100 mg Assessment/Plan Comment:: 31 yo male admitted for alcohol detoxification: continue ativan protocol: his CIWAA this morning is 12 replaced electrolytes: mg, k and phosphate. monitor on cardiac telemetry DC IVF: tolerating po liquids and diet [facility] is [facility] where his mom will help support him: social work supervisor will send the paperwork today.
[2016-09-25 10:37] LABS: CHLORIDE,CL 103 mmol/L (98-110); SODIUM,NA 139 mmol/L (136-146)
[2016-09-25] MEDS ORDERED: Phosphorus #1 250 MG Tab PO ONE (13:44)
--- NOTE | 2016-09-25 14:21 | US ---
EXAM DATE: 09/24/16 PATIENT'S AGE: 31 Patient: ISAAK HARDWICK Facility: [place], [place] Site . Site : 1985 Study: US Abdomen [id number]/21/2017 11:58:08 AM Ordering Physician: Vivian Anguiano Final Report: INDICATION: Elevated liver enzymes. Alcohol abuse. TECHNIQUE: Ultrasound abdomen limited. Sonographic images of the right upper quadrant were obtained using urbina-scale and color Doppler images. COMPARISON: None FINDINGS: LIVER: Normal in size. Diffusely echogenic. No masses. No intrahepatic biliary dilatation. GALLBLADDER: No stones or sludge. Normal wall thickness. No pericholecystic fluid. COMMON BILE DUCT: 3 mm. PANCREAS: Normal. RIGHT KIDNEY: 11 cm. Normal echotexture and cortex. No masses, stones, or hydronephrosis. VASCULATURE: Proximal abdominal aorta and IVC are normal. IMPRESSION: There is fatty infiltration of the liver. Otherwise unremarkable right upper quadrant ultrasound. Dictated by Cruz Nathan MD @ Sep 25 2016 1:54PM (Electronic Signature) Report Signed by Proxy. BULL
[2016-09-25] MEDS: Sodium Chloride 0.9% 1,000 ML IV SCH (14:47)
[2016-09-25] MEDS: Phosphorus #1 250 MG Tab PO SCH (18:21)
[2016-09-26] MEDS: Phosphorus #1 250 MG Tab PO SCH ×3 (01:00→12:15)
[2016-09-26] MEDS: Sodium Chloride 0.9% 1,000 ML IV SCH (04:08)
[2016-09-26] MEDS: LORazepam 2 MG/ML MDV IV PRN ×2 (04:49→07:52)
[2016-09-26 06:29] LABS: CHLORIDE,CL 106 mmol/L (98-110); SODIUM,NA 137 mmol/L (136-146)
[2016-09-26] MEDS ORDERED: Potassium Chloride 20 MEQ Tab.ER PO ONE (06:43)
[2016-09-26] MEDS ORDERED: Magnesium Sulfate/Water 2 GM in Premix Bag 1 BAG IV ONE (06:45)
[2016-09-26] MEDS: Folic Acid 1 MG Tab PO SCH (08:00)
[2016-09-26] MEDS: Thiamine 200 MG/2 ML MDV IVPUSH SCH (08:00)
[2016-09-26] MEDS: Pantoprazole 40 MG in Sodium Chloride 0.9% 10 ML IV SCH (08:01)
--- NOTE | 2016-09-26 09:11 | PCM.PN ---
- General Info Date of Service: 09/26/16 Admission Dx/Problem (Free Text): The patient was admitted yesterday secondary to acute alcohol intoxication with history of alcohol withdrawal symptoms. The patient is currently being managed by electronic ICU. Functional Status: Reports: Pain Controlled - Review of Systems General: Reports: Weakness HEENT: Reports: No Symptoms Pulmonary: Reports: No Symptoms Cardiovascular: Reports: No Symptoms Gastrointestinal: Reports: No Symptoms Genitourinary: Reports: No Symptoms Musculoskeletal: Reports: No Symptoms Skin: Reports: No Symptoms Neurological: Reports: No Symptoms Psychiatric: Reports: Cravings - Patient Data Vitals - most recent: Last Vital Signs Temp 36.6 C 09/26/16 08:00 Pulse 111 H 09/24/16 21:47 Resp 34 H 09/26/16 08:00 BP 128/87 09/26/16 08:00 Pulse Ox 90 L 09/26/16 08:00 Weight - most recent: 111.7 kg I&O - last 24 hours: Intake & Output 09/25/16 09/26/16 09/26/16 22:59 06:59 14:59 Intake Total 1647 1950 Output Total 450 540 Balance 1197 1410 Lab Results last 24 hrs: Laboratory Results - last 24 hr 09/25/16 09/25/16 09/25/16 Range/Units 10:04 10:04 10:04 WBC (4.0-11.0) K/uL RBC (4.50-5.90) M/uL Hgb (13.0-17.0) g/dL Hct (38.0-50.0) % MCV (80.0-98.0) fL MCH (27.0-32.0) pg MCHC (31.0-37.0) g/dL RDW Std Deviation (28.0-62.0) fl RDW Coeff of Jennifer (11.0-15.0) % Plt Count (150-400) K/uL MPV (7.40-12.00) fL Neut % (Auto) (48.0-80.0) % Lymph % (Auto) (16.0-40.0) % [place] % (Auto) (0.0-15.0) % Eos % (Auto) (0.0-7.0) % Baso % (Auto) (0.0-1.5) % Neut # (Auto) (1.4-5.7) K/uL Lymph # (Auto) (0.6-2.4) K/uL [place] # (Auto) (0.0-0.8) K/uL Eos # (Auto) (0.0-0.7) K/uL Baso # (Auto) (0.0-0.1) K/uL Nucleated RBC % /100WBC Nucleated RBCs # K/uL Sodium 139 (136-146) mmol/L Potassium 3.5 (3.5-5.1) mmol/L Chloride 103 (98-110) mmol/L Carbon Dioxide 25 (21-31) mmol/L BUN 2 L (6.0-23.0) mg/dL Creatinine 0.8 (0.6-1.5) mg/dL Est Cr Clr Drug Dosing 130.89 mL/min Estimated GFR (MDRD) > 60.0 ml/min Glucose 103 (60-110) mg/dL Calcium 7.7 L (8.8-10.8) mg/dL Phosphorus 1.7 L (2.4-4.7) mg/dL Magnesium 2.1 (1.5-2.3) mEq/L 09/26/16 09/26/16 Range/Units 05:29 05:29 WBC 4.48 (4.0-11.0) K/uL RBC 3.67 L (4.50-5.90) M/uL Hgb 12.4 L (13.0-17.0) g/dL Hct 36.4 L (38.0-50.0) % MCV 99.2 H (80.0-98.0) fL MCH 33.8 H (27.0-32.0) pg MCHC 34.1 (31.0-37.0) g/dL RDW Std Deviation 48.9 (28.0-62.0) fl RDW Coeff of Jennifer 14 (11.0-15.0) % Plt Count 82 L (150-400) K/uL MPV 10.70 (7.40-12.00) fL Neut % (Auto) 72.8 (48.0-80.0) % Lymph % (Auto) 18.1 (16.0-40.0) % [place] % (Auto) 5.1 (0.0-15.0) % Eos % (Auto) 3.3 (0.0-7.0) % Baso % (Auto) 0.7 (0.0-1.5) % Neut # (Auto) 3.3 (1.4-5.7) K/uL Lymph # (Auto) 0.8 (0.6-2.4) K/uL [place] # (Auto) 0.2 (0.0-0.8) K/uL Eos # (Auto) 0.2 (0.0-0.7) K/uL Baso # (Auto) 0.0 (0.0-0.1) K/uL Nucleated RBC % 0.0 /100WBC Nucleated RBCs # 0 K/uL Sodium 137 (136-146) mmol/L Potassium 3.4 L (3.5-5.1) mmol/L Chloride 106 (98-110) mmol/L Carbon Dioxide 24 (21-31) mmol/L BUN 5 L (6.0-23.0) mg/dL Creatinine 0.7 (0.6-1.5) mg/dL Est Cr Clr Drug Dosing 149.59 mL/min Estimated GFR (MDRD) > 60.0 ml/min Glucose 88 (60-110) mg/dL Calcium 8.1 L (8.8-10.8) mg/dL Phosphorus 2.6 (2.4-4.7) mg/dL Magnesium 1.3 L (1.5-2.3) mEq/L Med Orders - Current: Current Medications Folic Acid (Folic Acid) 1 mg PO DAILY [facility] Last Admin: 09/26/16 08:00 Dose: 1 mg Pantoprazole Sodium 40 mg/ (Sodium Chloride) 10 mls @ 300 mls/hr IV Q12H [facility] Last Admin: 09/26/16 08:01 Dose: 300 mls/hr Sodium Chloride (Normal Saline) 1,000 mls @ 75 mls/hr IV ASDIRECTED [facility] Last Admin: 09/26/16 04:08 Dose: 75 mls/hr Lorazepam (Ativan) 0 mg IV Q1H PRN; Protocol PRN Reason: Other Last Admin: 09/26/16 07:52 Dose: 1 mg Ondansetron HCl (Zofran) 4 mg IVPUSH Q4H PRN PRN Reason: Nausea Sodium Phosphate (Neutra-Phos) 250 mg PO QID [facility] Last Admin: 09/26/16 06:25 Dose: 250 mg Thiamine HCl (Vitamin B-1) 100 mg IVPUSH DAILY [facility] Last Admin: 09/26/16 08:00 Dose: 100 mg Discontinued Medications Pantoprazole Sodium 80 mg/ (Sodium Chloride) 10 mls @ 300 mls/hr IVPUSH NOW ONE Stop: 09/24/16 21:01 Last Admin: 09/24/16 21:38 Dose: 300 mls/hr Sodium Chloride (Normal Saline) 1,000 mls @ 250 mls/hr IV .Bolus ONE Stop: 09/25/16 00:59 Last Admin: 09/24/16 21:37 Dose: 250 mls/hr Multivitamins/Minerals 10 ml/Thiamine HCl 100 mg/ Folic Acid 1 mg/ Sodium Chloride 1,011.2 mls @ 200 mls/hr IV DAILY ONE Stop: 09/25/16 02:40 Last Admin: 09/24/16 23:53 Dose: 200 mls/hr Potassium Chloride/Sodium Chloride (Normal Saline With 20 Meq Kcl) 1,000 mls @ 150 mls/hr IV ASDIRECTED [facility] Last Admin: 09/25/16 04:58 Dose: 150 mls/hr Magnesium Sulfate 2 gm/ Premix 50 mls @ 50 mls/hr IV ONETIME ONE Stop: 09/25/16 07:17 Last Admin: 09/25/16 06:41 Dose: 50 mls/hr Magnesium Sulfate 2 gm/ Premix 50 mls @ 50 mls/hr IV ONETIME ONE Stop: 09/25/16 09:44 Last Admin: 09/25/16 09:15 Dose: 50 mls/hr Magnesium Sulfate 2 gm/ Premix 50 mls @ 50 mls/hr IV ONETIME ONE Stop: 09/26/16 07:44 Last Admin: 09/26/16 06:56 Dose: 50 mls/hr Lorazepam (Ativan) 1 mg IVPUSH ONETIME ONE Stop: 09/24/16 20:37 Last Admin: 09/24/16 20:43 Dose: 1 mg Lorazepam (Ativan) Confirm Administered Dose 2 mg .ROUTE .STK-MED ONE Stop: 09/24/16 21:40 Last Admin: 09/24/16 22:40 Dose: Not Given Lorazepam (Ativan) 1 mg IVPUSH ONETIME ONE Stop: 09/24/16 21:43 Last Admin: 09/24/16 21:46 Dose: 1 mg Pantoprazole Sodium (Protonix Iv) 40 mg IV Q12HR [facility] Potassium Chloride (Klor-Con M20) 20 meq PO ONETIME ONE Stop: 09/24/16 23:35 Last Admin: 09/25/16 00:03 Dose: 20 meq Potassium Chloride (Klor-Con M20) 40 meq PO ONETIME ONE Stop: 09/25/16 06:20 Last Admin: 09/25/16 06:42 Dose: 40 meq Potassium Chloride (Klor-Con M20) 40 meq PO ONETIME ONE Stop: 09/26/16 06:44 Last Admin: 09/26/16 06:56 Dose: 40 meq Sodium Phosphate (Neutra-Phos) 250 mg PO ONETIME ONE Stop: 09/25/16 13:45 Last Admin: 09/25/16 13:52 Dose: 250 mg - Exam Quality Assessment: supplemental oxygen General: alert, oriented, cooperative, sedated HEENT: Pupils equal, Pupils reactive Neck: supple, trachea midline Lungs: Clear to Auscultation, Normal Respiratory Effort Cardiovascular: Regular Rate, Regular Rhythm, No Murmurs GI/Abdominal Exam: Normal Bowel Sounds, Soft, Non-Tender Extremities: Normal Inspection, No Pedal Edema Skin: warm, dry Neurological: no new focal deficit Psy/Mental Status: alert, withdrawal symptoms. No: normal affect (Flat affect) - Problem List & Annotations (1) Alcohol withdrawal SNOMED Code(s): 072997318 Code(s): F10.239 - ALCOHOL DEPENDENCE WITH WITHDRAWAL, UNSPECIFIED Status: Acute Priority: High Current Visit: Yes Qualifiers: Complication of substance-induced condition: with perceptual disturbance Qualified Code(s): F10.232 - Alcohol dependence with withdrawal with perceptual disturbance (2) Thrombocytopenia concurrent with and due to alcoholism SNOMED Code(s): 04349180096471 Code(s): D69.59 - OTHER SECONDARY THROMBOCYTOPENIA; F10.20 - ALCOHOL DEPENDENCE, UNCOMPLICATED Status: Chronic Priority: High Current Visit: Yes (3) Alcohol intoxication SNOMED Code(s): 53088945 Code(s): F10.129 - ALCOHOL ABUSE WITH INTOXICATION, UNSPECIFIED Status: Chronic Priority: High Current Visit: Yes Qualifiers: Complication of substance-induced condition: uncomplicated (4) Hypokalemia SNOMED Code(s): 37083338 Code(s): E87.6 - HYPOKALEMIA Status: Acute Priority: High Current Visit : Yes (5) Transaminitis SNOMED Code(s): 784734979 Code(s): R74.0 - NONSPEC ELEV OF LEVELS OF TRANSAMNS & LACTIC ACID DEHYDRGNSE Status: Chronic Priority: Medium Current Visit: Yes (6) Fatty liver, alcoholic SNOMED Code(s): 10780605 Code(s): K70.0 - ALCOHOLIC FATTY LIVER Status: Chronic Priority: Medium Current Visit: Yes - Problem List Review Problem List Initiated/Reviewed/Updated: Yes - Plan Plan:: 31 yo male admitted for alcohol detoxification: continue ativan protocol: his CIWAA this morning is 12 replaced electrolytes: mg, k and phosphate. monitor on cardiac telemetry DC IVF: tolerating po liquids and diet He is willing to go [facility] where his mom will help support him: social work therapist will send the paperwork today. September 26, 2016: The patient is a 31-year-old gentleman who is presented to the emergency room wanting help with alcohol detoxification. The patient was heavily intoxicated with blood alcohol level of 0.386. The patient was admitted for management of alcohol withdrawal symptoms the patient is in intensive care unit along with management by electronic ICU protocol. The patient's current CIWAS scores a 12. He has been exhibiting some confusion at the present time and he is currently on the Ativan protocol. The patient is also hypokalemic that these electrolytes have been replaced at the orders of the eICU. The patient is noted also have thrombocytopenia and his platelets currently at 82, 000 as opposed to 133,000. These will be monitored and if they continue to drop we'll consider LUDA panel and possible discontinuance of the patient's Lovenox. The patient also has transaminitis likely secondary to the patient's fatty liver disease as well as his alcoholism. The patient was monitored very closely he will be kept on withdrawal protocol and the patient's electrolytes will be replaced as necessary. They're concerned that if this patient were to be discharged to [facility] his prospects for continued sobriety are poor. The patient plans to return to [facility] upon discharge. I have ordered repeat laboratory test for the morning and patient's overall treatment plan will be adjusted as conditions and information indicates.
[2016-09-26 13:50] VITALS: BP 148/106
--- NOTE | 2016-09-26 13:55 | PCM.DCSUM1 ---
Discharge Summary - Hospital Course HPI Initial Comments: The patient had been admitted at his request for acute hospitalization with possible detoxification and rehabilitation. The patient was intoxicated with blood alcohol level of 0. 385. The patient was admitted to intensive care unit and he was placed on alcohol withdrawal precautions. - Discharge Data Discharge Date: 09/26/16 Discharge Disposition: Against Medical Advice 07 Condition: Poor - Discharge Diagnosis/Problem(s) (1) Alcohol withdrawal SNOMED Code(s): 711926941 ICD Code: F10.239 - ALCOHOL DEPENDENCE WITH WITHDRAWAL, UNSPECIFIED Status : Acute Priority: High Qualifiers: Complication of substance-induced condition: with perceptual disturbance Qualified Code(s): F10.232 - Alcohol dependence with withdrawal with perceptual disturbance (2) Thrombocytopenia concurrent with and due to alcoholism SNOMED Code(s): 51922069850734 ICD Code: D69.59 - OTHER SECONDARY THROMBOCYTOPENIA; F10.20 - ALCOHOL DEPENDENCE, UNCOMPLICATED Status: Chronic Priority: High (3) Alcohol intoxication SNOMED Code(s): 84967921 ICD Code: F10.129 - ALCOHOL ABUSE WITH INTOXICATION, UNSPECIFIED Status: Chronic Priority: High Qualifiers: Complication of substance-induced condition: uncomplicated Qualified Code(s ): F10.920 - Alcohol use, unspecified with intoxication, uncomplicated (4) Hypokalemia SNOMED Code(s): 97143483 ICD Code: E87.6 - HYPOKALEMIA Status: Acute Priority: High (5) Transaminitis SNOMED Code(s): 889506565 ICD Code: R74.0 - NONSPEC ELEV OF LEVELS OF TRANSAMNS & LACTIC ACID DEHYDRGNSE Status: Chronic Priority: Medium (6) Fatty liver, alcoholic SNOMED Code(s): 61883685 ICD Code: K70.0 - ALCOHOLIC FATTY LIVER Status: Chronic Priority: Medium - Patient Instructions Diet: Heart Healthy Diet - Discharge Plan Home Medications: Home Meds [id number] [Librium] 10 mg PO TID PRN #15 cap 09/22/16 [Rx] Forms: ED Department Discharge Referrals: PCP,None [Primary Care Provider] - - Discharge Summary/Plan Comment DC Time >30 min.: No Discharge Summary/Plan Comment: The patient is a 31-year-old gentleman who was admitted secondary to acute alcohol intoxication with a blood alcohol level 0.385. The patient reports that he is feeling much better in spite of being on alcohol withdrawal procedures with a score of 13. The patient also had a CT scan completed which showed fatty liver secondary to alcohol usage. The patient was admitted originally at his request for alcohol detoxification as well as rehabilitation. The patient at this time have been advised that going home would be inappropriate and unsafe. The patient decided that he was going to leave AGAINST MEDICAL ADVICE and he signed out. I feel at this time that the patient's likelihood for continued sobriety is poor. I have recommended that the patient follow-up with Alcoholics Anonymous. - General Info Functional Status: Reports: Pain Controlled - Patient Data Vitals - Most Recent: Last Vital Signs Temp 36.6 C 09/26/16 12:00 Pulse 111 H 09/24/16 21:47 Resp 25 H 09/26/16 13:00 BP 148/106 H 09/26/16 13:00 Pulse Ox 94 L 09/26/16 13:00 Weight - Most Recent: 111.7 kg I&O - Last 24 hours: Intake & Output 09/25/16 09/26/16 09/26/16 22:59 06:59 14:59 Intake Total 1647 1950 689 Output Total 450 540 Balance 1197 1410 689 Lab Results - Last 24 hrs: Laboratory Results - last 24 hr 09/26/16 09/26/16 Range/Units 05:29 05:29 WBC 4.48 (4.0-11.0) K/uL RBC 3.67 L (4.50-5.90) M/uL Hgb 12.4 L (13.0-17.0) g/dL Hct 36.4 L (38.0-50.0) % MCV 99.2 H (80.0-98.0) fL MCH 33.8 H (27.0-32.0) pg MCHC 34.1 (31.0-37.0) g/dL RDW Std Deviation 48.9 (28.0-62.0) fl RDW Coeff of Jennifer 14 (11.0-15.0) % Plt Count 82 L (150-400) K/uL MPV 10.70 (7.40-12.00) fL Neut % (Auto) 72.8 (48.0-80.0) % Lymph % (Auto) 18.1 (16.0-40.0) % [place] % (Auto) 5.1 (0.0-15.0) % Eos % (Auto) 3.3 (0.0-7.0) % Baso % (Auto) 0.7 (0.0-1.5) % Neut # (Auto) 3.3 (1.4-5.7) K/uL Lymph # (Auto) 0.8 (0.6-2.4) K/uL [place] # (Auto) 0.2 (0.0-0.8) K/uL Eos # (Auto) 0.2 (0.0-0.7) K/uL Baso # (Auto) 0.0 (0.0-0.1) K/uL Nucleated RBC % 0.0 /100WBC Nucleated RBCs # 0 K/uL Sodium 137 (136-146) mmol/L Potassium 3.4 L (3.5-5.1) mmol/L Chloride 106 (98-110) mmol/L Carbon Dioxide 24 (21-31) mmol/L BUN 5 L (6.0-23.0) mg/dL Creatinine 0.7 (0.6-1.5) mg/dL Est Cr Clr Drug Dosing 149.59 mL/min Estimated GFR (MDRD) > 60.0 ml/min Glucose 88 (60-110) mg/dL Calcium 8.1 L (8.8-10.8) mg/dL Phosphorus 2.6 (2.4-4.7) mg/dL Magnesium 1.3 L (1.5-2.3) mEq/L Med Orders - Current: Current Medications Discontinued Medications Folic Acid (Folic Acid) 1 mg PO DAILY [facility] Last Admin: 09/26/16 08:00 Dose: 1 mg Pantoprazole Sodium 80 mg/ (Sodium Chloride) 10 mls @ 300 mls/hr IVPUSH NOW ONE Stop: 09/24/16 21:01 Last Admin: 09/24/16 21:38 Dose: 300 mls/hr Sodium Chloride (Normal Saline) 1,000 mls @ 250 mls/hr IV .Bolus ONE Stop: 09/25/16 00:59 Last Admin: 09/24/16 21:37 Dose: 250 mls/hr Multivitamins/Minerals 10 ml/Thiamine HCl 100 mg/ Folic Acid 1 mg/ Sodium Chloride 1,011.2 mls @ 200 mls/hr IV DAILY ONE Stop: 09/25/16 02:40 Last Admin: 09/24/16 23:53 Dose: 200 mls/hr Potassium Chloride/Sodium Chloride (Normal Saline With 20 Meq Kcl) 1,000 mls @ 150 mls/hr IV ASDIRECTED [facility] Last Admin: 09/25/16 04:58 Dose: 150 mls/hr Magnesium Sulfate 2 gm/ Premix 50 mls @ 50 mls/hr IV ONETIME ONE Stop: 09/25/16 07:17 Last Admin: 09/25/16 06:41 Dose: 50 mls/hr Magnesium Sulfate 2 gm/ Premix 50 mls @ 50 mls/hr IV ONETIME ONE Stop: 09/25/16 09:44 Last Admin: 09/25/16 09:15 Dose: 50 mls/hr Pantoprazole Sodium 40 mg/ (Sodium Chloride) 10 mls @ 300 mls/hr IV Q12H [facility] Last Admin: 09/26/16 08:01 Dose: 300 mls/hr Sodium Chloride (Normal Saline) 1,000 mls @ 75 mls/hr IV ASDIRECTED [facility] Last Admin: 09/26/16 04:08 Dose: 75 mls/hr Magnesium Sulfate 2 gm/ Premix 50 mls @ 50 mls/hr IV ONETIME ONE Stop: 09/26/16 07:44 Last Admin: 09/26/16 06:56 Dose: 50 mls/hr Lorazepam (Ativan) 1 mg IVPUSH ONETIME ONE Stop: 09/24/16 20:37 Last Admin: 09/24/16 20:43 Dose: 1 mg Lorazepam (Ativan) Confirm Administered Dose 2 mg .ROUTE .STK-MED ONE Stop: 09/24/16 21:40 Last Admin: 09/24/16 22:40 Dose: Not Given Lorazepam (Ativan) 1 mg IVPUSH ONETIME ONE Stop: 09/24/16 21:43 Last Admin: 09/24/16 21:46 Dose: 1 mg Lorazepam (Ativan) 0 mg IV Q1H PRN; Protocol PRN Reason: Other Last Admin: 09/26/16 07:52 Dose: 1 mg Ondansetron HCl (Zofran) 4 mg IVPUSH Q4H PRN PRN Reason: Nausea Pantoprazole Sodium (Protonix Iv) 40 mg IV Q12HR [facility] Potassium Chloride (Klor-Con M20) 20 meq PO ONETIME ONE Stop: 09/24/16 23:35 Last Admin: 09/25/16 00:03 Dose: 20 meq Potassium Chloride (Klor-Con M20) 40 meq PO ONETIME ONE Stop: 09/25/16 06:20 Last Admin: 09/25/16 06:42 Dose: 40 meq Potassium Chloride (Klor-Con M20) 40 meq PO ONETIME ONE Stop: 09/26/16 06:44 Last Admin: 09/26/16 06:56 Dose: 40 meq Sodium Phosphate (Neutra-Phos) 250 mg PO ONETIME ONE Stop: 09/25/16 13:45 Last Admin: 09/25/16 13:52 Dose: 250 mg Sodium Phosphate (Neutra-Phos) 250 mg PO QID [facility] Last Admin: 09/26/16 12:15 Dose: 250 mg Thiamine HCl (Vitamin B-1) 100 mg IVPUSH DAILY [facility] Last Admin: 09/26/16 08:00 Dose: 100 mg *Q Meaningful Use (DIS) - VTE *Q VTE Criteria *Q: - Stroke *Q Stroke Criteria *Q: - AMI *Q AMI Criteria *Q:
== END 2016-09-26 13:45 | disposition left against medical advice (07) | DRG 894 ==
LOC: MW.ED 20:19 → MW.ICU 23:03
PROVIDERS: ADMIT Internal Medicine; ATTEND Internal Medicine
DX: F10.239 Alcohol dependence with withdrawal, unspecified (principal); Y90.8 Blood alcohol level of 240 mg/100 ml or more; D69.59 Other secondary thrombocytopenia; E87.6 Hypokalemia; R74.0 Nonspecific elevation of levels of transaminase and lactic acid dehydrogenase [LDH]; K70.0 Alcoholic fatty liver; F41.8 Other specified anxiety disorders
CPT/HCPCS: 36415; 76705; 76705-26; 80048; 80053; 80305; 81001; 82150; 83690; 83735; 84100; 85025; 85610; 96361; 96374; 96375; 96376; 99285; 99285-25; A9270-GY; C9113; G0480; J2060; J3411; J3475; J3480; J7040

== ENCOUNTER 2016-09-26 18:30 | Emergency (ER) | payer MEDICAID, OTHER | END 2016-09-26 19:07 | disposition left against medical advice (07) | LOC: MW.ED 18:30 | DX: Z53.21 Procedure and treatment not carried out due to patient leaving prior to being seen by health care provider (principal) ==

== ENCOUNTER 2016-09-29 17:34 | Emergency (ER) | payer MEDICAID, OTHER ==
[2016-09-29] MEDS ORDERED: Sodium Chloride 0.9% 10 ML Syringe FLUSH PRN (18:07)
[2016-09-29] MEDS ORDERED: Sodium Chloride 0.9% 2.5 ML Syringe FLUSH PRN (18:07)
[2016-09-29] MEDS ORDERED: MVI, Adult with Vitamin K 10 ML, Thiamine 100 MG, Folic Acid 1 MG in Sodium Chloride 0.... IV ONE ×4 (18:08)
--- NOTE | 2016-09-29 18:11 | EDM.PDOCBH ---
ED HPI GENERAL MEDICAL PROBLEM - General Chief Complaint: Drug or Alcohol Abuse Stated Complaint: ALCOHOL DETOX Time Seen by Provider: 09/29/16 18:10 Source of Information: Reports: Patient History Limitations: Reports: No Limitations - History of Present Illness INITIAL COMMENTS - FREE TEXT/NARRATIVE: HISTORY AND PHYSICAL: []31-year-old male presenting for detoxification History of Present Illness: []Is well known to the emergency room here was in hospital and signed himself out 3 days ago He is willing to go to treatment at this time He had previously been for many years on Ativan his physician in [place] has retired and has not been able to refill this medication here Review of Systems: As per history of present illness and below otherwise all systems reviewed and negative. Past medical history: As per history of present illness and as reviewed below otherwise noncontributory. Surgical history: As per history of present illness and as reviewed below otherwise noncontributory. Social history: No reported history of drug or alcohol abuse. Family history: As per history of present illness and as reviewed below otherwise noncontributory. Physical exam:" Alert male answering questions appropriately, bargaining for treatment stating he wishes to have it," maybe he'll stay we'll retreat him so that he feels well during his detox" HEENT: Atraumatic, normocehpalic, pupils reactive, negative for conjunctival pallor or scleral icterus, mucous membranes moist, throat clear, neck supple, nontender, trachea midline. Pupils dilated. Somewhat slow to respond. Lungs: Clear to auscultation, breath sounds equal bilaterally, chest non tender. Heart: S1S2, regular, negative for clicks, rubs, or JVD. Abdomen: Soft, nondistended, nontender. Negative for masses or hepatossplenmegaly. Negative for costovertebral tenderness. Pelvis: Stable nontender. Genitourinary: Deferred. Rectal: Deferred Extremities: Atraumatic, negative for cords or calf pain. Neurovascular unremarkable. Neuro: Awake, alert, oriented. Cranial nerves II through XII unremarkable. Cerebellum unremarkable. Motor and sensory unremarkable throughout. Exam nonfocal. Discussed case with Dr. Hope in [facility]. He has kindly accepted this patient for transfer and detoxification with treatment. Patient will be sent by ground ambulance transfer papers were completed Diagnostics: [EKG UA urine drug screen EtOH TSH T3 magnesium CBC and CMP] Therapeutics: [Banana bag IV] Impression: [Chronic alcoholism Desire for detox and treatment] Plan: [Transfer to [facility] ER Dr. Hope for detoxification] Definitive disposition and diagnosis as appropriate pending reevaluation and review of above. Onset: Today Duration: Chronic Location: Reports: Generalized Severity: Moderate - Related Data Allergies Allergy/AdvReac Type Severity Reaction Status Date / Time No Known Allergies Allergy Verified 09/29/16 17:47 Home Meds: Home Meds . [No Known Home Meds] 09/29/16 [History] Past Medical History - Past Health History Medical/Surgical History: Denies Medical/Surgical History HEENT History: Reports: None Cardiovascular History: Reports: Hypertension Respiratory History: Reports: None Gastrointestinal History: Reports: None Genitourinary History: Reports: None Musculoskeletal History: Reports: None Neurological History: Reports: Seizure, Other (See Below) Other Neuro History: alcohol withdrawl seizure in the past. Psychiatric History: Reports: Addiction Other Psychiatric History: etoh abuse, states " have gone through withdrawls in the past". when pt asked if this felt like withdrawls he stated "no". Endocrine/Metabolic History: Reports: Obesity/BMI 30+ Hematologic History: Reports: None Immunologic History: Reports: None Oncologic (Cancer) History: Reports: None Dermatologic History: Reports: None - Infectious Disease History Infectious Disease History: Reports: None - Past Surgical History HEENT Surgical History: Reports: None Cardiovascular Surgical History: Reports: None Respiratory Surgical History: Reports: None GI Surgical History: Reports: None Male Surgical History: Reports: None Neurological Surgical History: Reports: None Musculoskeletal Surgical History: Reports: None Oncologic Surgical History: Reports: None Social & Family History - Family History Family Medical History: Noncontributory Cardiac: Reports: [place] Neurological: Reports: TIA Psychiatric: Reports: Other (See Below) Other Psychiatric Family History: etoh abuse - Tobacco Use Smoking Status *Q: Never Smoker Second Hand Smoke Exposure: No - Caffeine Use Caffeine Use: Reports: None - Alcohol Use Days Per Week of Alcohol Use: 7 Number of Drinks Per Day: 8 Total Drinks Per Week: 56 - Recreational Drug Use Recreational Drug Use: No ED ROS GENERAL - Review of Systems Review Of Systems: ROS reveals no pertinent complaints other than HPI. ED EXAM, BEHAVIORAL HEALTH - Physical Exam Exam: See Below (See dictation) COURSE, BEHAVIORAL HEALTH COMP - Course Vital Signs: Last Vital Signs Temp 36.1 C 09/29/16 17:43 Pulse 91 09/29/16 17:43 Resp 16 09/29/16 17:43 BP 138/101 H 09/29/16 17:43 Pulse Ox 97 09/29/16 17:43 Orders, Labs, Meds: Active Orders 24 hr Category Date Time Status EKG Documentation Completion [RC] STAT Care 09/29/16 18:07 Active COMPREHENSIVE METABOLIC PN,CMP [CHEM] Stat Lab 09/29/16 18:24 Results DRUG SCREEN, URINE [URCHEM] Stat Lab 09/29/16 18:07 Uncollected ETHANOL BLOOD MEDICAL [CHEM] Stat Lab 09/29/16 18:24 Results FREE T3 [REF] Stat Lab 09/29/16 18:24 Received MAGNESIUM [CHEM] Stat Lab 09/29/16 18:24 Results TSH [CHEM] Stat Lab 09/29/16 18:24 Results UA W/MICROSCOPIC [URIN] Stat Lab 09/29/16 18:06 Uncollected MVI, Adult with Vitamin K [Infuvite Adult] 10 ml Med 09/29/16 18:08 Active Thiamine [Vitamin B-1] 100 mg Folic Acid 1 mg Sodium Chloride 0.9% [Normal Saline] 1,000 ml IV ONETIME Sodium Chloride 0.9% [Saline Flush] Med 09/29/16 18:07 Active 10 ml FLUSH ASDIRECTED PRN Sodium Chloride 0.9% [Saline Flush] Med 09/29/16 18:07 Active 2.5 ml FLUSH ASDIRECTED PRN Saline Lock Insert [OM.PC] Stat Oth 09/29/16 18:06 Ordered Medication Orders Multivitamins/Minerals 10 ml/Thiamine HCl 100 mg/ Folic Acid 1 mg/ Sodium Chloride 1,011.2 mls @ 250 mls/hr IV ONETIME ONE Stop: 09/29/16 22:10 Last Admin: 09/29/16 18:40 Dose: 250 mls/hr Sodium Chloride (Saline Flush) 10 ml FLUSH ASDIRECTED PRN PRN Reason: Keep Vein Open Sodium Chloride (Saline Flush) 2.5 ml FLUSH ASDIRECTED PRN PRN Reason: Keep Vein Open Laboratory Tests 09/29/16 09/29/16 Range/Units 18:24 18:24 WBC 5.83 (4.0-11.0) K/uL RBC 4.20 L (4.50-5.90) M/uL Hgb 14.2 (13.0-17.0) g/dL Hct 41.8 (38.0-50.0) % MCV 99.5 H (80.0-98.0) fL MCH 33.8 H (27.0-32.0) pg MCHC 34.0 (31.0-37.0) g/dL RDW Std Deviation 53.6 (28.0-62.0) fl RDW Coeff of Jennifer 15 (11.0-15.0) % Plt Count 103 L (150-400) K/uL MPV 10.40 (7.40-12.00) fL Neut % (Auto) 55.6 (48.0-80.0) % Lymph % (Auto) 24.5 (16.0-40.0) % Hooker % (Auto) 14.6 (0.0-15.0) % Eos % (Auto) 3.9 (0.0-7.0) % Baso % (Auto) 1.4 (0.0-1.5) % Neut # (Auto) 3.2 (1.4-5.7) K/uL Lymph # (Auto) 1.4 (0.6-2.4) K/uL Hooker # (Auto) 0.9 H (0.0-0.8) K/uL Eos # (Auto) 0.2 (0.0-0.7) K/uL Baso # (Auto) 0.1 (0.0-0.1) K/uL Nucleated RBC % 0.0 /100WBC Nucleated RBCs # 0 K/uL Sodium 143 (136-146) mmol/L Potassium 3.5 (3.5-5.1) mmol/L Chloride 110 (98-110) mmol/L Carbon Dioxide 21 (21-31) mmol/L BUN 3 L (6.0-23.0) mg/dL Creatinine 0.7 (0.6-1.5) mg/dL Est Cr Clr Drug Dosing TNP Estimated GFR (MDRD) > 60.0 ml/min Glucose 109 (60-110) mg/dL Calcium 8.4 L (8.8-10.8) mg/dL Magnesium 1.4 L (1.5-2.3) mEq/L Total Bilirubin 4.7 H (0.1-1.5) mg/dL AST 338 H (5-40) IU/L ALT 125 H (8-54) IU/L Alkaline Phosphatase 153 H (40-150) Total Protein 7.0 (6.0-8.0) g/dL Albumin 3.4 L (3.5-5.0) g/dL Globulin 3.6 H (2.0-3.5) g/dL Albumin/Globulin Ratio 0.9 L (1.3-2.8) Ethyl Alcohol 337.9 mg/dL Medications Generic Name Dose Route Start Last Admin Trade Name Freq PRN Reason Stop Dose Admin Multivitamins/Minerals 10 ml/ 1,011.2 mls @ 250 mls/hr 09/29/16 18:08 18:40 Thiamine HCl 100 mg/ Folic IV 09/29/16 22:10 250 mls/hr Acid 1 mg/ Sodium Chloride ONETIME ONE Administration Sodium Chloride 10 ml 09/29/16 18:07 Saline Flush FLUSH ASDIRECTED PRN Keep Vein Open Sodium Chloride 2.5 ml 09/29/16 18:07 Saline Flush FLUSH ASDIRECTED PRN Keep Vein Open Departure - Departure Time of Disposition: 19:06 Disposition: DC/Tfer to Acute Hospital 02 Condition: Good Clinical Impression: Alcohol intoxication Qualifiers: Complication of substance-induced condition: uncomplicated Qualified Code(s): F10.920 - Alcohol use, unspecified with intoxication, uncomplicated - Discharge Information Forms: ED Department Discharge Additional Instructions: The following information is given to patients seen in the emergency department who are being discharged to home. This information is to outline your options for follow-up care. We provide all patients seen in our emergency department with a follow-up referral. The need for follow-up, as well as the timing and circumstances, are variable depending upon the specifics of your emergency department visit. If you don't have a primary care physician on staff, we will provide you with a referral. We always advise you to contact your personal physician following an emergency department visit to inform them of the circumstance of the visit and for follow-up with them and/or the need for any referrals to a consulting specialist. The emergency department will also refer you to a specialist when appropriate. This referral assures that you have the opportunity for followup care with a specialist. All of these measure are taken in an effort to provide you with optimal care, which includes your followup. Under all circumstances we always encourage you to contact your private physician who remains a resource for coordinating your care. When calling for followup care, please make the office aware that this follow-up is from your recent emergency room visit. If for any reason you are refused follow-up, please contact the [facility] emergency department at and asked to speak to the emergency department charge nurse. - My Orders Last 24 Hours: My Active Orders 09/29/16 18:06 UA W/MICROSCOPIC [URIN] Stat Saline Lock Insert [OM.PC] Stat 09/29/16 18:07 EKG Documentation Completion [RC] STAT DRUG SCREEN, URINE [URCHEM] Stat Sodium Chloride 0.9% [Saline Flush] 10 ml FLUSH ASDIRECTED PRN Sodium Chloride 0.9% [Saline Flush] 2.5 ml FLUSH ASDIRECTED PRN 09/29/16 18:08 MVI, Adult with Vitamin K [Infuvite Adult] 10 ml Thiamine [Vitamin B-1] 100 mg Folic Acid 1 mg Sodium Chloride 0.9% [Normal Saline] 1,000 ml IV ONETIME 09/29/16 18:24 COMPREHENSIVE METABOLIC PN,CMP [CHEM] Stat ETHANOL BLOOD MEDICAL [CHEM] Stat FREE T3 [REF] Stat MAGNESIUM [CHEM] Stat TSH [CHEM] Stat - Assessment/Plan Last 24 Hours: My Active Orders 09/29/16 18:06 UA W/MICROSCOPIC [URIN] Stat Saline Lock Insert [OM.PC] Stat 09/29/16 18:07 EKG Documentation Completion [RC] STAT DRUG SCREEN, URINE [URCHEM] Stat Sodium Chloride 0.9% [Saline Flush] 10 ml FLUSH ASDIRECTED PRN Sodium Chloride 0.9% [Saline Flush] 2.5 ml FLUSH ASDIRECTED PRN 09/29/16 18:08 MVI, Adult with Vitamin K [Infuvite Adult] 10 ml Thiamine [Vitamin B-1] 100 mg Folic Acid 1 mg Sodium Chloride 0.9% [Normal Saline] 1,000 ml IV ONETIME 07/25/17 18:24 COMPREHENSIVE METABOLIC PN,CMP [CHEM] Stat ETHANOL BLOOD MEDICAL [CHEM] Stat FREE T3 [REF] Stat MAGNESIUM [CHEM] Stat TSH [CHEM] Stat
[2016-09-29 18:55] LABS: CHLORIDE,CL 110 mmol/L (98-110); SODIUM,NA 143 mmol/L (136-146)
[2016-09-29] MEDS ORDERED: LORazepam 2 MG/ML MDV IVPUSH ONE (19:35)
[2016-09-29 20:30] VITALS: BP 136/87
== END 2016-09-29 19:48 ==
LOC: MW.ED 17:34
DX: F10.120 Alcohol abuse with intoxication, uncomplicated (principal); I10 Essential (primary) hypertension; E66.9 Obesity, unspecified; Y90.8 Blood alcohol level of 240 mg/100 ml or more; Z68.36 Body mass index [BMI] 36.0-36.9, adult
CPT/HCPCS: 36415; 80053; 83735; 84443; 84481; 85025; 93005; 96365; 96375; 99285; G0480; J2060; J3411; J7040; 99284

== ENCOUNTER 2016-10-03 18:52 | Emergency (ER) | payer MEDICAID ==
[2016-10-03] MEDS ORDERED: 50% Dextrose in Water 50 ML Syringe IVPUSH ONE (19:11)
--- NOTE | 2016-10-03 19:19 | EDM.PDOC ---
ED HPI GENERAL MEDICAL PROBLEM - General Chief Complaint: Behavioral/Psych Stated Complaint: WEAKNESS, WITHDRAW Time Seen by Provider: 10/03/16 19:10 - History of Present Illness INITIAL COMMENTS - FREE TEXT/NARRATIVE: HISTORY AND PHYSICAL: History of present illness: The patient is a 31-year-old male who is well known to our ER for multiple visits for alcohol intoxication and who in fact just several days ago was transferred to [facility] for alcohol rehabilitation. According to the patient he was just discharged this morning and came home and drink alcohol. He called EMS to be transported here because he had weakness and he felt like he was shaky and wanted evaluation. On arrival here in the ED the patient would like to go home and says he doesn't feel weak or shaky and would just like to be discharged. He says he is eating 3 meals today and has had no vomiting no recent falls or other trauma. The patient admits he fell several days to one week ago and had bruising to his right upper extremity which is not new. The patient otherwise has no complaints of head neck or back pain no chest pain or shortness of breath no abdominal pain or vomiting. The patient states that literally he was discharged this morning from [facility] went home and began to drink. Review of systems: As per history of present illness and below otherwise all systems reviewed and negative. Past medical history: As per history of present illness and as reviewed below otherwise noncontributory. Surgical history: As per history of present illness and as reviewed below otherwise noncontributory. Social history: No reported history of drug or alcohol abuse. Family history: As per history of present illness and as reviewed below otherwise noncontributory. Physical exam: Gen.: Well-developed well-nourished male who is nontoxic and speaking clearly but slowly in the ED. He Is moving all extremities and ambulates with assistance HEENT: Atraumatic, normocephalic, pupils reactive, negative for conjunctival pallor , there is a slight tint of scleral icterus, mucous membranes moist, throat clear, neck supple, nontender, trachea midline. Lungs: Clear to auscultation, breath sounds equal bilaterally, chest nontender. Heart: S1S2, regular rate and rhythm no overt murmurs Abdomen: Soft, nondistended, nontender. Negative for masses or hepatosplenomegaly. Negative for costovertebral tenderness. Pelvis: Stable nontender. Genitourinary: Deferred. Rectal: Deferred. Extremities: Atraumatic, negative for cords or calf pain. Neurovascular unremarkable. Full range of motion without any defects or deficits but there is a resolving ecchymosis seen on the volar surface of the right forearm and humerus without any palpable bony deformities. There is full range of motion of this extremity and neurovascular is intact in all compartments are soft. Neuro: Awake, alert, oriented. Cranial nerves II through XII unremarkable. Motor and sensory unremarkable throughout. Exam nonfocal. The patient has clear speech it is just slightly slowed Back: There are no midline step-offs tenderness or defects the thoracic or lumbar spine and no soft tissue injuries are appreciated. Skin: No diaphoresis normal turgor no evidence of any rashes or lesions Diagnostics: Accu-Chek Therapeutics: D50 and food Patient like to not undergo any more treatment and I will honor that. He states he doesn't have anyone to pink and pops will contact policed to arrange transportation to home. I've advised him to get outpatient follow-up and to return here as needed Impression: Alcohol use/abuse history of same Definitive disposition and diagnosis as appropriate pending reevaluation and review of above. - Related Data Allergies Allergy/AdvReac Type Severity Reaction Status Date / Time No Known Allergies Allergy Verified 09/29/16 17:47 Home Meds: Home Meds . [No Known Home Meds] 09/29/16 [History] Past Medical History - Past Health History Medical/Surgical History: Denies Medical/Surgical History HEENT History: Reports: None Cardiovascular History: Reports: Hypertension Respiratory History: Reports: None Gastrointestinal History: Reports: None Genitourinary History: Reports: None Musculoskeletal History: Reports: None Neurological History: Reports: Seizure, Other (See Below) Other Neuro History: alcohol withdrawl seizure in the past. Psychiatric History: Reports: Addiction Other Psychiatric History: etoh abuse, states " have gone through withdrawls in the past". when pt asked if this felt like withdrawls he stated "no". Endocrine/Metabolic History: Reports: Obesity/BMI 30+ Hematologic History: Reports: None Immunologic History: Reports: None Oncologic (Cancer) History: Reports: None Dermatologic History: Reports: None - Infectious Disease History Infectious Disease History: Reports: None - Past Surgical History HEENT Surgical History: Reports: None Cardiovascular Surgical History: Reports: None Respiratory Surgical History: Reports: None GI Surgical History: Reports: None Male Surgical History: Reports: None Neurological Surgical History: Reports: None Musculoskeletal Surgical History: Reports: None Oncologic Surgical History: Reports: None Social & Family History - Family History Family Medical History: Noncontributory Cardiac: Reports: [place] Neurological: Reports: TIA Psychiatric: Reports: Other (See Below) Other Psychiatric Family History: etoh abuse - Tobacco Use Smoking Status *Q: Never Smoker Second Hand Smoke Exposure: No - Caffeine Use Caffeine Use: Reports: None - Alcohol Use Days Per Week of Alcohol Use: 7 Number of Drinks Per Day: 8 Total Drinks Per Week: 56 - Recreational Drug Use Recreational Drug Use: No ED ROS GENERAL - Review of Systems Review Of Systems: ROS reveals no pertinent complaints other than HPI. ED EXAM, GENERAL - Physical Exam Exam: See Below (See dictation) Course - Orders/Labs/Meds Orders: Active Orders 24 hr Category Date Time Status Blood Glucose Check, Bedside [RC] ONETIME Care 10/03/16 19:11 Ordered Communication Order [RC] STAT Care 10/03/16 19:10 Ordered Dextrose 50% in Water Med 10/03/16 19:11 Once 25 ml IVPUSH ONETIME ONE Departure - Departure Time of Disposition: 19:19 Disposition: Home, Self-Care 01 Condition: Good Clinical Impression: Alcohol abuse - Discharge Information Forms: ED Department Discharge Additional Instructions: The following information is given to patients seen in the emergency department who are being discharged to home. This information is to outline your options for follow-up care. We provide all patients seen in our emergency department with a follow-up referral. The need for follow-up, as well as the timing and circumstances, are variable depending upon the specifics of your emergency department visit. If you don't have a primary care physician on staff, we will provide you with a referral. We always advise you to contact your personal physician following an emergency department visit to inform them of the circumstance of the visit and for follow-up with them and/or the need for any referrals to a consulting specialist. The emergency department will also refer you to a specialist when appropriate. This referral assures that you have the opportunity for followup care with a specialist. All of these measure are taken in an effort to provide you with optimal care, which includes your followup. Under all circumstances we always encourage you to contact your private physician who remains a resource for coordinating your care. When calling for followup care, please make the office aware that this follow-up is from your recent emergency room visit. If for any reason you are refused follow-up, please contact the [facility] emergency department at and ask to speak to the emergency department charge nurse. [facility] Primary care- Internal Medicine and Family [address] [address] Please try to connect for outpatient care with [facility] or any other agency you choose. Please reduce and/or stop alcohol use, please eat meals and push hydration. Return to ER as needed and as discussed. - My Orders Last 24 Hours: My Active Orders 10/03/16 19:10 Communication Order [RC] STAT 10/03/16 19:11 Blood Glucose Check, Bedside [RC] ONETIME Dextrose 50% in Water 25 ml IVPUSH ONETIME ONE - Assessment/Plan Last 24 Hours: My Active Orders 10/03/16 19:10 Communication Order [RC] STAT 10/03/16 19:11 Blood Glucose Check, Bedside [RC] ONETIME Dextrose 50% in Water 25 ml IVPUSH ONETIME ONE
[2016-10-03 21:21] VITALS: BP 127/79
== END 2016-10-03 19:37 | disposition home or self-care (01) ==
LOC: MW.ED 18:52
DX: F10.10 Alcohol abuse, uncomplicated (principal); E66.9 Obesity, unspecified
CPT/HCPCS: 82962; 96374; 99284; J7060; 99282

== ENCOUNTER 2016-10-06 21:10 | Emergency (ER) | payer MEDICAID ==
[2016-10-06] MEDS ORDERED: Sodium Chloride 0.9% 2.5 ML Syringe FLUSH PRN (21:17)
[2016-10-06] MEDS ORDERED: Sodium Chloride 0.9% 10 ML Syringe FLUSH PRN (21:17)
[2016-10-06] MEDS ORDERED: Sodium Chloride 0.9% 1,000 ML IV ONE (21:17)
--- NOTE | 2016-10-06 21:21 | EDM.PDOC ---
ED HPI GENERAL MEDICAL PROBLEM - General Chief Complaint: Drug or Alcohol Abuse Stated Complaint: UNK Time Seen by Provider: 10/06/16 21:14 - History of Present Illness INITIAL COMMENTS - FREE TEXT/NARRATIVE: HISTORY AND PHYSICAL: History of present illness: The patient is a 31-year-old male with a known history of alcohol abuse who is here in the ED via EMS after he called them because he tells me he was "in a bad state". According to EMS they were dispatched for alcohol withdrawal or possible seizure. The patient lives in a trailer which is where he was found and brought here. This patient is well known to me and the ER staff as today is his seventh visit in the last 14 days for either alcoholism alcohol abuse or requesting help for alcohol use. The patient was transferred to [facility] in [place] on September 29 for drug treatment and I saw him the day he was discharged because right after he was discharged he went home rank alcohol and then came here again via EMS. The patient says he is unsure if he had a seizure or if he fell today but he says that he has Ativan and that he takes at home and he last dose at 11 AM. He does admit that he drank alcohol tonight. EMS did an Accu-Chek which was okay and the patient is not offering much more information or is unaware of today's events. He is unsure when he last ate food. He currently has no complaints. Review of systems: As per history of present illness and below otherwise all systems reviewed and negative. Past medical history: As per history of present illness and as reviewed below otherwise noncontributory. Surgical history: As per history of present illness and as reviewed below otherwise noncontributory. Social history: No reported history of drug or alcohol abuse. Family history: As per history of present illness and as reviewed below otherwise noncontributory. Physical exam: Gen.: Well-developed overweight male who is nontoxic and speaking with slurred speech and has smell of alcohol on his breath. He is able to move from cart to cart and slowly move all extremities. Patient is intermittently sleeping but is arousable and is maintaining his airway. HEENT: Atraumatic except for a superficial abrasion on the middle of his for head and a small area bruising seen at the right zygoma/cheek area without palpable bony deformities,, normocephalic, pupils reactive, negative for conjunctival pallor , there is scleral icterus which seems to be worse than when I saw him a few days ago, mucous membranes tacky, throat clear, neck supple , nontender, trachea midline. There are no palpable bony deformities of the scalp and there are no midline step-offs in his defects of the cervical spine. EOMs are intact. Lungs: Clear to auscultation, breath sounds equal bilaterally, chest nontender. There is an ecchymosis seen at the left chest wall area laterally without crepitus or bony deformities and there is no tenderness here. The age of this ecchymosis is indeterminant. Heart: S1S2, regular, negative for clicks, rubs, or JVD. Abdomen: Soft, nondistended, nontender. Bowel sounds are hypoactive and there is no tympany or rebound or guarding appreciated. Negative for masses or hepatosplenomegaly. Negative for costovertebral tenderness. Pelvis: Stable nontender. Genitourinary: Deferred. Rectal: Deferred. Extremities: Atraumatic with full range of motion as far as bony architecture but there is some pinkish erythema and superficial abrasion at the right knee and there is some ecchymosis appreciated at the volar forearm and humerus soft tissue area without compartment swelling or tenderness, the ecchymosis age is indeterminant and there is no bony deformity here and there is full range of motion of that extremity all other extremities have no evidence of any defects or deficits,, negative for cords or calf pain. Neurovascular unremarkable. Neuro: Awake, alert, speech is slurred Cranial nerves II through XII unremarkable. Cerebellum cannot be determined due to patient's inability to perform exam well Motor and sensory unremarkable throughout. Exam nonfocal. Back: There are no midline step-offs in his defects of the thoracic or lumbar spine and no posterior rib or posterior pelvis tenderness. There is a superficial abrasion in a linear fashion seen at the left flank without any depth. Diagnostics: EKG CBC CMP ammonia INR alcohol level UA UDS CT scan of the head and C-spine x- rays of the left ribs with chest, right knee, right humerus, right forearm Therapeutics: IV O2 monitor IV fluids lactulose 2235:Please note that the patient was able to free void a urine sample on his own and he stood up with nursing clinical director to do that. He is moving very slowly in the ER but he is able to follow directions and moves spontaneously, stand with assistance. 2309: TESTING results were discussed with the patient and he is aware that he needs to be transferred as we do not have GI/hepatology here. I discussed the case with Dr. Monae in the ER at [facility] who accepts the patient for transfer and as the patient is cooperative and stable he can go by ground. Impression: Acute hepatic injury with hyperbilirubinemia and hyperammonemia, history of alcohol use abuse with alcohol intoxication Definitive disposition and diagnosis as appropriate pending reevaluation and review of above. - Related Data Allergies Allergy/AdvReac Type Severity Reaction Status Date / Time No Known Allergies Allergy Verified 10/03/16 19:14 Home Meds: Home Meds . [No Known Home Meds] 09/29/16 [History] Past Medical History - Past Health History Medical/Surgical History: Denies Medical/Surgical History HEENT History: Reports: None Cardiovascular History: Reports: Hypertension Respiratory History: Reports: None Gastrointestinal History: Reports: None Genitourinary History: Reports: None Musculoskeletal History: Reports: None Neurological History: Reports: Seizure, Other (See Below) Other Neuro History: alcohol withdrawl seizure in the past. Psychiatric History: Reports: Addiction Other Psychiatric History: etoh abuse, states " have gone through withdrawls in the past". when pt asked if this felt like withdrawls he stated "no". Endocrine/Metabolic History: Reports: Obesity/BMI 30+ Hematologic History: Reports: None Immunologic History: Reports: None Oncologic (Cancer) History: Reports: None Dermatologic History: Reports: None - Infectious Disease History Infectious Disease History: Reports: None - Past Surgical History HEENT Surgical History: Reports: None Cardiovascular Surgical History: Reports: None Respiratory Surgical History: Reports: None GI Surgical History: Reports: None Male Surgical History: Reports: None Neurological Surgical History: Reports: None Musculoskeletal Surgical History: Reports: None Oncologic Surgical History: Reports: None Social & Family History - Family History Family Medical History: Noncontributory Cardiac: Reports: [place] Neurological: Reports: TIA Psychiatric: Reports: Other (See Below) Other Psychiatric Family History: etoh abuse - Tobacco Use Smoking Status *Q: Never Smoker Second Hand Smoke Exposure: No - Caffeine Use Caffeine Use: Reports: None - Alcohol Use Days Per Week of Alcohol Use: 7 Number of Drinks Per Day: 8 Total Drinks Per Week: 56 - Recreational Drug Use Recreational Drug Use: No ED ROS GENERAL - Review of Systems Review Of Systems: ROS reveals no pertinent complaints other than HPI. ED EXAM, GENERAL - Physical Exam Exam: See Below (See dictation) Course - Vital Signs Last Recorded V/S: Last Vital Signs Temp 36.6 C 10/06/16 23:02 Pulse 88 10/06/16 23:02 Resp 20 10/06/16 23:02 BP 112/68 10/06/16 23:02 Pulse Ox 97 10/06/16 23:02 - Orders/Labs/Meds Orders: Active Orders 24 hr Category Date Time Status Cardiac Monitoring [RC] . DIRECTED Care 10/06/16 21:15 Active EKG Documentation Completion [RC] STAT Care 10/06/16 21:15 Active Oxygen Therapy, ED [RC] ASDIRECTED Care 10/06/16 21:15 Active Pulse Oximetry [RC] ASDIRECTED Care 10/06/16 21:15 Active Cervical Spine wo Cont [CT] Stat Exams 10/06/16 21:17 Taken Forearm 2V Rt [CR] Stat Exams 10/06/16 21:16 Taken Head wo Cont [CT] Stat Exams 10/06/16 21:16 Taken Humerus Rt [CR] Stat Exams 10/06/16 21:16 Taken Knee 3V Rt [CR] Stat Exams 10/06/16 21:16 Taken Ribs 2V w Chest Lt [CR] Stat Exams 10/06/16 21:16 Taken Sodium Chloride 0.9% [Saline Flush] Med 10/06/16 21:17 Active 10 ml FLUSH ASDIRECTED PRN Sodium Chloride 0.9% [Saline Flush] Med 10/06/16 21:17 Active 2.5 ml FLUSH ASDIRECTED PRN Saline Lock Insert [OM.PC] Stat Oth 10/06/16 21:15 Ordered Medication Orders Sodium Chloride (Saline Flush) 10 ml FLUSH ASDIRECTED PRN PRN Reason: Keep Vein Open Last Admin: 10/06/16 21:27 Dose: 10 ml Sodium Chloride (Saline Flush) 2.5 ml FLUSH ASDIRECTED PRN PRN Reason: Keep Vein Open Last Admin: 10/06/16 21:28 Dose: 2.5 ml Labs: Laboratory Tests 10/06/16 10/06/16 10/06/16 Range/Units 21:15 21:15 21:15 WBC 9.34 (4.0-11.0) K/uL RBC 4.17 L (4.50-5.90) M/uL Hgb 14.2 (13.0-17.0) g/dL Hct 41.1 (38.0-50.0) % MCV 98.6 H (80.0-98.0) fL MCH 34.1 H (27.0-32.0) pg MCHC 34.5 (31.0-37.0) g/dL RDW Std Deviation 63.6 H (28.0-62.0) fl RDW Coeff of Jennifer 18 H (11.0-15.0) % Plt Count 200 (150-400) K/uL MPV 10.90 (7.40-12.00) fL Neut % (Auto) 65.5 (48.0-80.0) % Lymph % (Auto) 18.2 (16.0-40.0) % [place] % (Auto) 13.6 (0.0-15.0) % Eos % (Auto) 1.4 (0.0-7.0) % Baso % (Auto) 1.3 (0.0-1.5) % Neut # (Auto) 6.1 H (1.4-5.7) K/uL Lymph # (Auto) 1.7 (0.6-2.4) K/uL [place] # (Auto) 1.3 H (0.0-0.8) K/uL Eos # (Auto) 0.1 (0.0-0.7) K/uL Baso # (Auto) 0.1 (0.0-0.1) K/uL Nucleated RBC % 0.0 /100WBC Nucleated RBCs # 0 K/uL INR 1.30 H (0.86-1.11) Sodium 141 (136-146) mmol/L Potassium 3.8 (3.5-5.1) mmol/L Chloride 106 (98-110) mmol/L Carbon Dioxide 19 L (21-31) mmol/L BUN 3 L (6.0-23.0) mg/dL Creatinine 0.8 (0.6-1.5) mg/dL Est Cr Clr Drug Dosing 130.89 mL/min Estimated GFR (MDRD) > 60.0 ml/min Glucose 113 H (60-110) mg/dL Calcium 8.2 L (8.8-10.8) mg/dL Magnesium (1.5-2.3) mEq/L Total Bilirubin 13.0 H (0.1-1.5) mg/dL AST 218 H (5-40) IU/L ALT 66 H (8-54) IU/L Alkaline Phosphatase 178 H (40-150) Ammonia (14-68) UG/DL Total Protein 7.1 (6.0-8.0) g/dL Albumin 3.3 L (3.5-5.0) g/dL Globulin 3.8 H (2.0-3.5) g/dL Albumin/Globulin Ratio 0.9 L (1.3-2.8) Urine Color Urine Appearance Urine pH (5.0-8.0) Ur Specific [place] (1.001-1.035) Urine Protein (NEGATIVE) mg/dL Urine Glucose (UA) (NEGATIVE) mg/dL Urine Ketones (NEGATIVE) mg/dL Urine Occult Blood (NEGATIVE) Urine Nitrite (NEGATIVE) Urine Bilirubin (NEGATIVE) Urine Ictotest Urine Urobilinogen (<2.0) EU/dL Ur Leukocyte Esterase (NEGATIVE) Urine RBC (0-2/HPF) Urine WBC (0-5/HPF) Ur Epithelial Cells (NONE-FEW) Other Crystals Urinalysis Comment Urine Opiates Screen (NEGATIVE) Ur Oxycodone Screen (NEGATIVE) Urine Methadone Screen (NEGATIVE) Ur Barbiturates Screen (NEGATIVE) Ur Phencyclidine Scrn (NEGATIVE) Ur Amphetamine Screen (NEGATIVE) U Methamphetamines Scrn (NEGATIVE) U Benzodiazepines Scrn (NEGATIVE) U Cocaine Metab Screen (NEGATIVE) U Marijuana (THC) Screen (NEGATIVE) Ethyl Alcohol 395.8 mg/dL 10/06/16 10/06/16 10/06/16 Range/Units 21:15 21:15 22:30 WBC (4.0-11.0) K/uL RBC (4.50-5.90) M/uL Hgb (13.0-17.0) g/dL Hct (38.0-50.0) % MCV (80.0-98.0) fL MCH (27.0-32.0) pg MCHC (31.0-37.0) g/dL RDW Std Deviation (28.0-62.0) fl RDW Coeff of Jennifer (11.0-15.0) % Plt Count (150-400) K/uL MPV (7.40-12.00) fL Neut % (Auto) (48.0-80.0) % Lymph % (Auto) (16.0-40.0) % [place] % (Auto) (0.0-15.0) % Eos % (Auto) (0.0-7.0) % Baso % (Auto) (0.0-1.5) % Neut # (Auto) (1.4-5.7) K/uL Lymph # (Auto) (0.6-2.4) K/uL [place] # (Auto) (0.0-0.8) K/uL Eos # (Auto) (0.0-0.7) K/uL Baso # (Auto) (0.0-0.1) K/uL Nucleated RBC % /100WBC Nucleated RBCs # K/uL INR (0.86-1.11) Sodium (136-146) mmol/L Potassium (3.5-5.1) mmol/L Chloride (98-110) mmol/L Carbon Dioxide (21-31) mmol/L BUN (6.0-23.0) mg/dL Creatinine (0.6-1.5) mg/dL Est Cr Clr Drug Dosing mL/min Estimated GFR (MDRD) ml/min Glucose (60-110) mg/dL Calcium (8.8-10.8) mg/dL Magnesium 1.6 (1.5-2.3) mEq/L Total Bilirubin (0.1-1.5) mg/dL AST (5-40) IU/L ALT (8-54) IU/L Alkaline Phosphatase (40-150) Ammonia 88 H (14-68) UG/DL Total Protein (6.0-8.0) g/dL Albumin (3.5-5.0) g/dL Globulin (2.0-3.5) g/dL Albumin/Globulin Ratio (1.3-2.8) Urine Color ORANGE Urine Appearance CLEAR Urine pH 6.5 (5.0-8.0) Ur Specific [place] 1.010 (1.001-1.035) Urine Protein NEGATIVE (NEGATIVE) mg/dL Urine Glucose (UA) NEGATIVE (NEGATIVE) mg/dL Urine Ketones NEGATIVE (NEGATIVE) mg/dL Urine Occult Blood NEGATIVE (NEGATIVE) Urine Nitrite NEGATIVE (NEGATIVE) Urine Bilirubin LARGE H (NEGATIVE) Urine Ictotest POSITIVE Urine Urobilinogen 0.2 (<2.0) EU/dL Ur Leukocyte Esterase NEGATIVE (NEGATIVE) Urine RBC 0-1 (0-2/HPF) Urine WBC 0-1 (0-5/HPF) Ur Epithelial Cells FEW (NONE-FEW) Other Crystals RARE Urinalysis Comment Urine Opiates Screen (NEGATIVE) Ur Oxycodone Screen (NEGATIVE) Urine Methadone Screen (NEGATIVE) Ur Barbiturates Screen (NEGATIVE) Ur Phencyclidine Scrn (NEGATIVE) Ur Amphetamine Screen (NEGATIVE) U Methamphetamines Scrn (NEGATIVE) U Benzodiazepines Scrn (NEGATIVE) U Cocaine Metab Screen (NEGATIVE) U Marijuana (THC) Screen (NEGATIVE) Ethyl Alcohol mg/dL 10/06/16 Range/Units 22:30 WBC (4.0-11.0) K/uL RBC (4.50-5.90) M/uL Hgb (13.0-17.0) g/dL Hct (38.0-50.0) % MCV (80.0-98.0) fL MCH (27.0-32.0) pg MCHC (31.0-37.0) g/dL RDW Std Deviation (28.0-62.0) fl RDW Coeff of Jennifer (11.0-15.0) % Plt Count (150-400) K/uL MPV (7.40-12.00) fL Neut % (Auto) (48.0-80.0) % Lymph % (Auto) (16.0-40.0) % [place] % (Auto) (0.0-15.0) % Eos % (Auto) (0.0-7.0) % Baso % (Auto) (0.0-1.5) % Neut # (Auto) (1.4-5.7) K/uL Lymph # (Auto) (0.6-2.4) K/uL [place] # (Auto) (0.0-0.8) K/uL Eos # (Auto) (0.0-0.7) K/uL Baso # (Auto) (0.0-0.1) K/uL Nucleated RBC % /100WBC Nucleated RBCs # K/uL INR (0.86-1.11) Sodium (136-146) mmol/L Potassium (3.5-5.1) mmol/L Chloride (98-110) mmol/L Carbon Dioxide (21-31) mmol/L BUN (6.0-23.0) mg/dL Creatinine (0.6-1.5) mg/dL Est Cr Clr Drug Dosing mL/min Estimated GFR (MDRD) ml/min Glucose (60-110) mg/dL Calcium (8.8-10.8) mg/dL Magnesium (1.5-2.3) mEq/L Total Bilirubin (0.1-1.5) mg/dL AST (5-40) IU/L ALT (8-54) IU/L Alkaline Phosphatase (40-150) Ammonia (14-68) UG/DL Total Protein (6.0-8.0) g/dL Albumin (3.5-5.0) g/dL Globulin (2.0-3.5) g/dL Albumin/Globulin Ratio (1.3-2.8) Urine Color Urine Appearance Urine pH (5.0-8.0) Ur Specific [place] (1.001-1.035) Urine Protein (NEGATIVE) mg/dL Urine Glucose (UA) (NEGATIVE) mg/dL Urine Ketones (NEGATIVE) mg/dL Urine Occult Blood (NEGATIVE) Urine Nitrite (NEGATIVE) Urine Bilirubin (NEGATIVE) Urine Ictotest Urine Urobilinogen (<2.0) EU/dL Ur Leukocyte Esterase (NEGATIVE) Urine RBC (0-2/HPF) Urine WBC (0-5/HPF) Ur Epithelial Cells (NONE-FEW) Other Crystals Urinalysis Comment Urine Opiates Screen NEGATIVE (NEGATIVE) Ur Oxycodone Screen NEGATIVE (NEGATIVE) Urine Methadone Screen NEGATIVE (NEGATIVE) Ur Barbiturates Screen NEGATIVE (NEGATIVE) Ur Phencyclidine Scrn NEGATIVE (NEGATIVE) Ur Amphetamine Screen NEGATIVE (NEGATIVE) U Methamphetamines Scrn NEGATIVE (NEGATIVE) U Benzodiazepines Scrn POSITIVE (NEGATIVE) U Cocaine Metab Screen NEGATIVE (NEGATIVE) U Marijuana (THC) Screen NEGATIVE (NEGATIVE) Ethyl Alcohol mg/dL Meds: Medications Generic Name Dose Route Start Last Admin Trade Name Freq PRN Reason Stop Dose Admin Sodium Chloride 10 ml 10/06/16 21:17 10/06/16 21:27 Saline Flush FLUSH 10 ml ASDIRECTED PRN Administration Keep Vein Open Sodium Chloride 2.5 ml 10/06/16 21:17 10/06/16 21:28 Saline Flush FLUSH 2.5 ml ASDIRECTED PRN Administration Keep Vein Open Discontinued Medications Generic Name Dose Route Start Last Admin Trade Name Freq PRN Reason Stop Dose Admin Sodium Chloride 1,000 mls @ 999 mls/hr 10/06/16 21:17 10/06/16 21:27 Normal Saline IV 10/06/16 22:17 999 mls/hr STAT ONE Administration Lactulose 30 gm 10/06/16 22:00 10/06/16 22:37 Chronulac PO 10/06/16 22:01 30 gm ONETIME ONE Administration Departure - Departure Time of Disposition: 23:17 Disposition: DC/Tfer to Acute Hospital 02 Condition: Fair Clinical Impression: Hyperbilirubinemia, Hyperammonemia, Alcoholism /alcohol abuse Alcohol intoxication Qualifiers: Complication of substance-induced condition: with unspecified complication Qualified Code(s): F10.929 - Alcohol use, unspecified with intoxication, unspecified - Discharge Information Forms: ED Department Discharge - My Orders Last 24 Hours: My Active Orders 10/06/16 21:15 Cardiac Monitoring [RC] . DIRECTED EKG Documentation Completion [RC] STAT Oxygen Therapy, ED [RC] ASDIRECTED Pulse Oximetry [RC] ASDIRECTED Saline Lock Insert [OM.PC] Stat 10/06/16 21:16 Forearm 2V Rt [CR] Stat Head wo Cont [CT] Stat Humerus Rt [CR] Stat Knee 3V Rt [CR] Stat Ribs 2V w Chest Lt [CR] Stat 10/06/16 21:17 Cervical Spine wo Cont [CT] Stat Sodium Chloride 0.9% [Saline Flush] 10 ml FLUSH ASDIRECTED PRN Sodium Chloride 0.9% [Saline Flush] 2.5 ml FLUSH ASDIRECTED PRN - Assessment/Plan Last 24 Hours: My Active Orders 10/06/16 21:15 Cardiac Monitoring [RC] . DIRECTED EKG Documentation Completion [RC] STAT Oxygen Therapy, ED [RC] ASDIRECTED Pulse Oximetry [RC] ASDIRECTED Saline Lock Insert [OM.PC] Stat 10/06/16 21:16 Forearm 2V Rt [CR] Stat Head wo Cont [CT] Stat Humerus Rt [CR] Stat Knee 3V Rt [CR] Stat Ribs 2V w Chest Lt [CR] Stat 10/06/16 21:17 Cervical Spine wo Cont [CT] Stat Sodium Chloride 0.9% [Saline Flush] 10 ml FLUSH ASDIRECTED PRN Sodium Chloride 0.9% [Saline Flush] 2.5 ml FLUSH ASDIRECTED PRN
[2016-10-06 21:48] LABS: CHLORIDE,CL 106 mmol/L (98-110); SODIUM,NA 141 mmol/L (136-146)
[2016-10-06] MEDS ORDERED: Lactulose Soln 10 GM/15 ML 15 ML UD Cup PO ONE (22:00)
[2016-10-06] MEDS ORDERED: Bacitracin Oint 1 GM U/D Packet TOP ONE (23:38)
[2016-10-06 23:57] VITALS: BP 117/83
--- NOTE | 2016-10-07 10:57 | CR ---
EXAM DATE: 10/06/16 PATIENT'S AGE: 31 Patient: ISAAK HARDWICK Facility: [place], [place] Site . Site : 1985 Study: XRay Extremity Left ribs/chest [id number]/1/2017 10:57:47 PM Ordering Physician: Rochelle Guevara Final Report: INDICATION: Trauma. TECHNIQUE: Chest and left ribs 2 views. COMPARISON: None FINDINGS: Cardiovascular and mediastinum: Heart size and vasculature are normal in caliber and appearance. Mediastinum is within normal limits. Lungs and pleural spaces: Lungs are clear. No sign of infiltrate or mass. No sign of pleural effusion. No pneumothorax. Bones and soft tissues: Detailed oblique images of the left ribs demonstrate no fractures or bone lesions. IMPRESSION: Unremarkable chest and left ribs. Dictated by Renzo Marroquin MD @ 10/06/2016 11:14:29 PM Dictated by: Renzo Marroquin MD @ 10/06/2016 23:14:37 (Electronic Signature) Report Signed by Proxy. [facility]
--- NOTE | 2016-10-07 10:58 | CR ---
EXAM DATE: 10/06/16 PATIENT'S AGE: 31 Patient: ISAAK HARDWICK Facility: [place], [place] Site . Site : 1985 Study: XRay Extremity Right humerus [id number]/1/2017 10:58:39 PM Ordering Physician: Rochelle Guevara Final Report: INDICATION: pain TECHNIQUE: Right humerus 2 views. COMPARISON: None. FINDINGS: Bones: Alignment is normal. No fractures or bone lesions. Joint spaces: Unremarkable. Soft tissues: Unremarkable. IMPRESSION: Unremarkable right humerus. Dictated by: Renzo Marroquin MD @ 10/06/2016 23:12:02 (Electronic Signature) Report Signed by Proxy. BULL
--- NOTE | 2016-10-07 10:59 | CR ---
EXAM DATE: 10/06/16 PATIENT'S AGE: 31 Patient: ISAAK HARDWICK Facility: [place], [place] Site . Site : 1985 Study: XRay Extremity Right forearm [id number]/1/2017 10:59:26 PM Ordering Physician: Rochelle Guevara Final Report: INDICATION: pain TECHNIQUE: Right forearm 2 views. COMPARISON: None. FINDINGS: Bones: Alignment is normal. No fractures or bone lesions. Joint spaces: Unremarkable. Soft tissues: Unremarkable. IMPRESSION: Unremarkable right forearm. Dictated by: Renzo Marroquin MD @ 10/06/2016 23:09:12 (Electronic Signature) Report Signed by Proxy. BULL
--- NOTE | 2016-10-07 11:00 | CR ---
EXAM DATE: 10/06/16 PATIENT'S AGE: 31 Patient: ISAAK HARDWICK Facility: [place], [place] Site Site : 1985 Study: XRay Extremity Right KNEE [id number]/1/2017 11:03:18 PM Ordering Physician: ANGELIC SHERIDAN MD Final Report: INDICATION: PAIN TECHNIQUE: Right knee 2 views. COMPARISON: None. FINDINGS: Bones: Alignment is normal. No fractures or bone lesions. Joint spaces: Unremarkable. Soft tissues: Unremarkable. IMPRESSION: Unremarkable right knee. Dictated by: Renzo Marroquin MD @ 10/06/2016 23:18:11 (Electronic Signature) Report Signed by Proxy. BULL
--- NOTE | 2016-10-07 11:01 | CT ---
EXAM DATE: 10/06/16 PATIENT'S AGE: 31 Patient: ISAAK HARDWICK Facility: [place], [place] Site . Site : 1985 Study: CT Head [id number]/1/2017 11:09:07 PM Ordering Physician: Rochelle Guevara Final Report: INDICATION: TRAUMA TECHNIQUE: CT Head without contrast. COMPARISON: None. FINDINGS: There is no sign of intracranial hemorrhage or mass effect. Ventricles and sulci are symmetric and midline. The urbina-white differentiation is preserved. No abnormal intra-axial or extra-axial fluid collection. No acute disease of the visualized paranasal sinuses and mastoid air cells. No fracture evident. Right periorbital soft tissue hematoma/laceration. IMPRESSION: No acute intracranial process. Dictated by: Luc Gongora MD @ 10/06/2016 23:21:04 (Electronic Signature) Report Signed by Proxy. BULL
--- NOTE | 2016-10-07 11:02 | CT ---
EXAM DATE: 10/06/16 PATIENT'S AGE: 31 Patient: ISAAK HARDWICK Facility: [place], [place] Site . Site : 1985 Study: CT Spine Cervical [id number]/1/2017 11:13:45 PM Ordering Physician: Rochelle Guevara Final Report: INDICATION: INJURY TECHNIQUE: CT cervical spine without contrast COMPARISON: None FINDINGS: Vertebral alignment: Reversal of normal cervical spine lordosis centered at the C4-5 level. Vertebrae: There are no fractures or suspicious bony lesions. Discs and facet joints: Disc spaces and facets are within normal limits. Extraspinal findings: Prevertebral soft tissues, visualized airway, and visualized lungs are unremarkable. IMPRESSION: No acute bony abnormality of the cervical spine. Dictated by Luc Gongora MD @ 10/06/2016 11:26:35 PM Dictated by: Luc Gongora MD @ 10/06/2016 23:27:00 (Electronic Signature) Report Signed by Proxy. [facility]
== END 2016-10-07 00:05 ==
LOC: MW.ED 21:10
DX: S36.119A Unspecified injury of liver, initial encounter (principal); S00.91XA Abrasion of unspecified part of head, initial encounter; S00.81XA Abrasion of other part of head, initial encounter; S80.211A Abrasion, right knee, initial encounter; F10.929 Alcohol use, unspecified with intoxication, unspecified; E72.20 Disorder of urea cycle metabolism, unspecified; I10 Essential (primary) hypertension; E66.9 Obesity, unspecified; Y90.8 Blood alcohol level of 240 mg/100 ml or more; Z68.35 Body mass index [BMI] 35.0-35.9, adult; X58.XXXA Exposure to other specified factors, initial encounter
CPT/HCPCS: 36415; 70450; 71101; 72125; 73060; 73090; 73562; 80053; 80305; 81001; 82140; 83735; 85025; 85610; 93005; 96360; 99285; A9270; G0480; J7040

== ENCOUNTER 2016-12-17 13:05 | Inpatient (IN) | payer MEDICAID ==
[2016-12-17] MEDS ORDERED: Sodium Chloride 0.9% 1,000 ML IV ONE (13:10)
[2016-12-17] MEDS ORDERED: Ondansetron 4 MG/2 ML SDV IVPUSH ONE (13:10)
--- NOTE | 2016-12-17 13:14 | EDM.PDOC ---
ED HPI GENERAL MEDICAL PROBLEM - General Stated Complaint: DETOX FROM ALCOHOL Time Seen by Provider: 12/17/16 13:08 Source of Information: Reports: Patient History Limitations: Reports: No Limitations - History of Present Illness INITIAL COMMENTS - FREE TEXT/NARRATIVE: HISTORY AND PHYSICAL: History of present illness: Patient is a 31-year-old male who has a long-standing history of alcohol abuse. He states he has been to multiple rehabilitation centers both inpatient and outpatient and has been unsuccessful. His last visit to the ER was 10/02/2016 in which he states he was transferred to [facility] for rehabilitation. Reports that he was sober until recently. Has been drinking vodka anywhere from a fourth to a half gallon daily. Takes Lorazepam for anxiety. States he has used Librium in the past but was unsuccessful as this caused him to "black out". Today when EMS arrived to his home they state he has taken 2 tablets of lorazepam [employer] and had been vomiting. He denies any recreational drug use. Patient reports he is having pain but is unable to specify where. Denies chest pain, shortness of breath, fever or chills. Denies any falls or recent trauma. Denies any thoughts of self harm. Review of systems: As per history of present illness and below otherwise all systems reviewed and negative. Past medical history: As per history of present illness and as reviewed below otherwise noncontributory. Surgical history: As per history of present illness and as reviewed below otherwise noncontributory. Social history: No reported history of drug or alcohol abuse. Family history: As per history of present illness and as reviewed below otherwise noncontributory. Physical exam: Gen.: Well-developed and well-nourished 31-year-old male. Reports he is intoxicated. Able to speak in full sentences. Drowsy but easily arousable. HEENT: Atraumatic, normocephalic, pupils reactive, negative for conjunctival pallor or scleral icterus, mucous membranes moist, throat clear, neck supple, nontender, trachea midline. Lungs: Clear to auscultation, breath sounds equal bilaterally, chest nontender. Heart: S1S2, regular rate and rhythm, tachycardic Abdomen: Soft, nondistended, nontender. Negative for masses or hepatosplenomegaly. Negative for costovertebral tenderness. Pelvis: Stable nontender. Genitourinary: Deferred. Rectal: Deferred. Extremities: Atraumatic, negative for cords or calf pain. Neurovascular unremarkable. Skin: Intact, warm, and dry. No overt lesions or rashes. Neuro: Awake, alert, oriented. Cranial nerves II through XII unremarkable. Cerebellum unremarkable. Motor and sensory unremarkable throughout. Exam nonfocal. Patient is anxious, stating that he doesn't feel "right". I re-asked patient if he had any recent falls or trauma, patient does not recall. I will add a head CT at this time. Patient reports that he wants inpatient alcohol treatment. I did explain to the patient that due to his recent discharge from their facility and that he is currently intoxicated, he would need to be stabilized prior to getting any form of alcohol treatment. Patient is disc content but agreeable. Dr. Mckeon was consulted on this case and he will except to admit this patient for alcohol intoxication. Patient is aware that he will likely be discharged tomorrow and will have to arrange for treatment on his own. Patient is agreeable to plan of care and denies any further questions at this time. Continues to sleep on the cot. Reports even and easy, will continue to monitor Diagnostics: CBCs, CMP, salicylate, acetaminophen, urine drug screen, EKG, urinalysis Therapeutics: IV fluid and Zofran Impression: Alcohol intoxication Plan: Admission to [facility] [place] with telemetry Definitive disposition and diagnosis as appropriate pending reevaluation and review of above. Duration: Chronic Left Abdominal Pain Score (Numeric/FACES): 2 - Related Data Allergies Allergy/AdvReac Type Severity Reaction Status Date / Time No Known Allergies Allergy Verified 10/03/16 19:14 Home Meds: Home Meds LORazepam [Ativan] 0 mg PO ASDIRECTED 10/06/16 [History] Past Medical History - Past Health History Medical/Surgical History: Denies Medical/Surgical History HEENT History: Reports: None Cardiovascular History: Reports: Hypertension Respiratory History: Reports: None Gastrointestinal History: Reports: None Genitourinary History: Reports: None Musculoskeletal History: Reports: None Neurological History: Reports: Seizure, Other (See Below) Other Neuro History: alcohol withdrawl seizure in the past. Psychiatric History: Reports: Addiction Other Psychiatric History: etoh abuse, states " have gone through withdrawls in the past". when pt asked if this felt like withdrawls he stated "no". Endocrine/Metabolic History: Reports: Obesity/BMI 30+ Hematologic History: Reports: None Immunologic History: Reports: None Oncologic (Cancer) History: Reports: None Dermatologic History: Reports: None - Infectious Disease History Infectious Disease History: Reports: None - Past Surgical History HEENT Surgical History: Reports: None Cardiovascular Surgical History: Reports: None Respiratory Surgical History: Reports: None GI Surgical History: Reports: None Male Surgical History: Reports: None Neurological Surgical History: Reports: None Musculoskeletal Surgical History: Reports: None Oncologic Surgical History: Reports: None Social & Family History - Family History Family Medical History: Noncontributory Cardiac: Reports: [place] Neurological: Reports: TIA Psychiatric: Reports: Other (See Below) Other Psychiatric Family History: etoh abuse - Tobacco Use Smoking Status *Q: Never Smoker Second Hand Smoke Exposure: No - Caffeine Use Caffeine Use: Reports: None - Alcohol Use Days Per Week of Alcohol Use: 7 Number of Drinks Per Day: 8 Total Drinks Per Week: 56 - Recreational Drug Use Recreational Drug Use: No ED ROS GENERAL - Review of Systems Review Of Systems: ROS reveals no pertinent complaints other than HPI. ED EXAM, GENERAL - Physical Exam Exam: See Below (See dictation) EKG INTERPRETATION EKG Date: 12/17/16 Time: 13:14 Rhythm: Other (Sinus tachycardia) Rate (Beats/Min): 106 EKG Interpretation Comments: Reviewed by me and Dr. Swartz Course - Vital Signs Last Recorded V/S: Last Vital Signs Temp 36.6 C 12/17/16 14:02 Pulse 113 H 12/17/16 14:02 Resp 16 12/17/16 14:02 BP 134/91 H 12/17/16 14:02 Pulse Ox 93 L 12/17/16 14:02 - Orders/Labs/Meds Orders: Active Orders 24 hr Category Date Time Status Admission Status [Patient Status] [ADT] Stat ADT 12/17/16 15:46 Ordered EKG Documentation Completion [RC] STAT Care 12/17/16 13:10 Active DRUG SCREEN, URINE [URCHEM] Stat Lab 12/17/16 13:10 Uncollected UA W/MICROSCOPIC [URIN] Stat Lab 12/17/16 13:10 Uncollected MVI, Adult with Vitamin K [Infuvite Adult] 10 ml Med 12/17/16 15:45 Ordered Thiamine [Vitamin B-1] 100 mg Folic Acid 1 mg Sodium Chloride 0.9% [Normal Saline] 1,000 ml IV ONETIME Medication Orders Multivitamins/Minerals 10 ml/Thiamine HCl 100 mg/ Folic Acid 1 mg/ Sodium Chloride 1,011.2 mls @ 150 mls/hr IV ONETIME ONE Stop: 12/17/16 22:29 Labs: Laboratory Tests 12/17/16 12/17/16 Range/Units 13:32 13:32 WBC 13.05 H (4.0-11.0) K/uL RBC 5.59 (4.50-5.90) M/uL Hgb 17.5 H (13.0-17.0) g/dL Hct 51.8 H (38.0-50.0) % MCV 92.7 (80.0-98.0) fL MCH 31.3 (27.0-32.0) pg MCHC 33.8 (31.0-37.0) g/dL RDW Std Deviation 44.8 (28.0-62.0) fl RDW Coeff of Jennifer 13 (11.0-15.0) % Plt Count 204 (150-400) K/uL MPV 9.20 (7.40-12.00) fL Neut % (Auto) 70.0 (48.0-80.0) % Lymph % (Auto) 21.1 (16.0-40.0) % Morrow % (Auto) 7.6 (0.0-15.0) % Eos % (Auto) 0.5 (0.0-7.0) % Baso % (Auto) 0.8 (0.0-1.5) % Neut # (Auto) 9.1 H (1.4-5.7) K/uL Lymph # (Auto) 2.8 H (0.6-2.4) K/uL Morrow # (Auto) 1.0 H (0.0-0.8) K/uL Eos # (Auto) 0.1 (0.0-0.7) K/uL Baso # (Auto) 0.1 (0.0-0.1) K/uL Nucleated RBC % 0.0 /100WBC Nucleated RBCs # 0 K/uL Sodium 145 (136-146) mmol/L Potassium 3.7 (3.5-5.1) mmol/L Chloride 107 (98-110) mmol/L Carbon Dioxide 21 (21-31) mmol/L BUN 6 (6.0-23.0) mg/dL Creatinine 0.9 (0.6-1.5) mg/dL Est Cr Clr Drug Dosing TNP Estimated GFR (MDRD) > 60.0 ml/min Glucose 103 (60-110) mg/dL Calcium 9.0 (8.8-10.8) mg/dL Total Bilirubin 1.4 (0.1-1.5) mg/dL AST 73 H (5-40) IU/L ALT 42 (8-54) IU/L Alkaline Phosphatase 122 (40-150) Total Protein 8.2 H (6.0-8.0) g/dL Albumin 4.0 (3.5-5.0) g/dL Globulin 4.2 H (2.0-3.5) g/dL Albumin/Globulin Ratio 1.0 L (1.3-2.8) Salicylates < 5.0 (0-20) mg/dL Acetaminophen < 3.0 ug/mL Ethyl Alcohol 456.8 mg/dL Meds: Medications Generic Name Dose Route Start Last Admin Trade Name Freq PRN Reason Stop Dose Admin Multivitamins/Minerals 10 ml/ 1,011.2 mls @ 150 mls/hr 12/17/16 15:45 Thiamine HCl 100 mg/ Folic IV 12/17/16 22:29 Acid 1 mg/ Sodium Chloride ONETIME ONE Discontinued Medications Generic Name Dose Route Start Last Admin Trade Name Freq PRN Reason Stop Dose Admin Sodium Chloride 1,000 mls @ 999 mls/hr 12/17/16 13:10 12/17/16 14:39 Normal Saline IV 12/17/16 14:10 999 mls/hr STAT ONE Administration Ondansetron HCl 4 mg 12/17/16 13:10 12/17/16 14:40 Zofran IVPUSH 12/17/16 13:11 4 mg ONETIME ONE Administration Departure - Departure Time of Disposition: 16:57 Disposition: Admitted As Inpatient 64 Clinical Impression: Alcohol intoxication Qualifiers: Complication of substance-induced condition: with unspecified complication Qualified Code(s): F10.929 - Alcohol use, unspecified with intoxication, unspecified - Discharge Information - My Orders Last 24 Hours: My Active Orders 12/17/16 13:10 EKG Documentation Completion [RC] STAT DRUG SCREEN, URINE [URCHEM] Stat UA W/MICROSCOPIC [URIN] Stat 12/17/16 15:45 MVI, Adult with Vitamin K [Infuvite Adult] 10 ml Thiamine [Vitamin B-1] 100 mg Folic Acid 1 mg Sodium Chloride 0.9% [Normal Saline] 1,000 ml IV ONETIME 12/17/16 15:46 Admission Status [Patient Status] [ADT] Stat - Assessment/Plan Last 24 Hours: My Active Orders 12/17/16 13:10 EKG Documentation Completion [RC] STAT DRUG SCREEN, URINE [URCHEM] Stat UA W/MICROSCOPIC [URIN] Stat 12/17/16 15:45 MVI, Adult with Vitamin K [Infuvite Adult] 10 ml Thiamine [Vitamin B-1] 100 mg Folic Acid 1 mg Sodium Chloride 0.9% [Normal Saline] 1,000 ml IV ONETIME 12/17/16 15:46 Admission Status [Patient Status] [ADT] Stat
[2016-12-17 14:09] LABS: ACETAMINOPHEN < 3.0 ug/mL; CHLORIDE,CL 107 mmol/L (98-110); SODIUM,NA 145 mmol/L (136-146)
--- NOTE | 2016-12-17 14:39 | CT ---
EXAMINATION: Non contrast CT head. Coronal and sagittal reformats. HISTORY: Altered mental status FINDINGS: No evidence of intra or extra axial hemorrhage, mass, midline shift, hydrocephalus or edema. No hypoattenuation changes in the major vascular territories to suggest acute infarct. No abnormal intracranial calcifications are detected. No evidence of substantial vascular calcificat ions. Paranasal sinuses and mastoid air cells are well aerated without substantial findings. The orbits an d globes appear symmetric. Pituitary fossa appears unremarkable. Calvarium is intact. No evidence of skull fracture. IMPRESSION: No acute intracranial findings.
[2016-12-17] MEDS ORDERED: MVI, Adult with Vitamin K 10 ML, Thiamine 100 MG, Folic Acid 1 MG in Sodium Chloride 0.... IV ONE ×4 (15:45)
[2016-12-17] MEDS: Ondansetron 4 MG/2 ML SDV IVPUSH PRN (17:20)
--- NOTE | 2016-12-17 18:09 | PCM.HP ---
H&P History of Present Illness - General Date of Service: 12/17/16 Admit Problem/Dx: Admission Diagnosis/Problem Admission Diagnosis/Problem Alcohol intoxication - History of Present Illness Initial Comments - Free Text/Narative: 31 yo male with pmh of alcohol abuse and dependence who has a had multiple admissions for alcohol intoxication. He presented to the ED with complaints of nausea and vomiting. He reports lightheadedness and generalized weakness. He reports anxiety regarding having withdrawal symptoms and is wanting help with detox. He reports drinking a fifth to half a gallon of vodka a day. He also reports taking ativan 4mg four times a day. His last drink was around noon right before arriving to the ED. Left Abdominal Pain Score (Numeric/FACES): 2 - Related Data Allergies/Adverse Reactions: Allergies Allergy/AdvReac Type Severity Reaction Status Date / Time No Known Allergies Allergy Verified 10/03/16 19:14 Home Medications: Home Meds LORazepam [Ativan] 0 mg PO ASDIRECTED 10/06/16 [History] Past Medical History - Past Health History Medical/Surgical History: Denies Medical/Surgical History HEENT History: Reports: None Cardiovascular History: Reports: Hypertension Respiratory History: Reports: None Gastrointestinal History: Reports: None Genitourinary History: Reports: None Musculoskeletal History: Reports: None Neurological History: Reports: Seizure, Other (See Below) Other Neuro History: alcohol withdrawl seizure in the past. Psychiatric History: Reports: Addiction Other Psychiatric History: etoh abuse, states " have gone through withdrawls in the past". when pt asked if this felt like withdrawls he stated "no". Endocrine/Metabolic History: Reports: Obesity/BMI 30+ Hematologic History: Reports: None Immunologic History: Reports: None Oncologic (Cancer) History: Reports: None Dermatologic History: Reports: None - Infectious Disease History Infectious Disease History: Reports: None - Past Surgical History HEENT Surgical History: Reports: None Cardiovascular Surgical History: Reports: None Respiratory Surgical History: Reports: None GI Surgical History: Reports: None Male Surgical History: Reports: None Neurological Surgical History: Reports: None Musculoskeletal Surgical History: Reports: None Oncologic Surgical History: Reports: None Social & Family History - Family History Family Medical History: Noncontributory Cardiac: Reports: [place] Neurological: Reports: TIA Psychiatric: Reports: Other (See Below) Other Psychiatric Family History: etoh abuse - Tobacco Use Smoking Status *Q: Never Smoker Second Hand Smoke Exposure: No - Caffeine Use Caffeine Use: Reports: None Caffeine Use Comment: pt unable to answer - Alcohol Use Days Per Week of Alcohol Use: 7 Number of Drinks Per Day: 8 Total Drinks Per Week: 56 Date of Last Drink: 12/17/16 Time of Last Drink: 10:00 - Recreational Drug Use Recreational Drug Use: No H&P Review of Systems - Review of Systems: Review Of Systems: ROS reveals no pertinent complaints other than HPI. Exam - Exam Exam: See Below - Vital Signs Vital Signs: Last Vital Signs Temp 36.6 C 12/17/16 14:02 Pulse 113 H 12/17/16 14:02 Resp 16 12/17/16 14:02 BP 134/91 H 12/17/16 14:02 Pulse Ox 93 L 12/17/16 14:02 Weight: 107.592 kg - Exam General: Alert, Oriented (to year, and place) HEENT: Mucosa Moist & [place] Neck: Supple Lungs: Clear to Auscultation, Normal Respiratory Effort Cardiovascular: Regular Rate, Regular Rhythm GI/Abdominal Exam: Soft, Non-Tender, No Distention Extremities: Normal Inspection, Non-Tender, No Pedal Edema Skin: Warm, Dry, Intact Neurological: Cranial Nerves Intact, Strength Equal Bilateral, Normal Speech. No: Focal Deficit - Patient Data Result Diagrams: 12/17/16 13:32 12/17/16 13:32 *Q Meaningful Use (ADM) - VTE *Q VTE Criteria *Q: - Stroke *Q Stroke Criteria *Q: - AMI *Q AMI Criteria *Q: Problem List Initiated/Reviewed/Updated: Yes Orders Last 24hrs: Active Orders 24 hr Category Date Time Status Antiembolic Devices [RC] PER UNIT ROUTINE Care 12/17/16 17:55 Ordered Intake and Output [RC] QSHIFT Care 12/17/16 17:54 Ordered Oxygen Therapy [RC] PRN Care 12/17/16 17:54 Ordered Up ad Ayaka [RC] ASDIRECTED Care 12/17/16 17:53 Ordered VTE/DVT Education [RC] PER UNIT ROUTINE Care 12/17/16 17:54 Ordered Vital Signs [RC] Q4H Care 12/17/16 17:54 Ordered Regular Diet [DIET] Diet 12/17/16 Breakfast Ordered CBC WITH AUTO DIFF [HEME] AM Lab 12/18/16 05:11 Ordered COMPREHENSIVE METABOLIC PN,CMP [CHEM] AM Lab 12/18/16 05:11 Ordered Folic Acid Med 12/18/16 09:00 Active 1 mg PO DAILY LORazepam [Ativan] Med 12/17/16 17:12 Active See Protocol IVPUSH Q4H PRN Ondansetron [Zofran] Med 12/17/16 17:11 Active 8 mg IVPUSH Q8H PRN Sodium Chloride 0.9% @ 125 MLS/HR (1000ml) Med 12/17/16 18:00 Ordered Sodium Chloride 0.9% [Normal Saline] 1,000 ml IV ASDIRECTED Thiamine [Vitamin B-1] Med 12/18/16 09:00 Active 100 mg PO DAILY One To One Therapy [BH] Routine Oth 12/17/16 17:42 Ordered Sequential Compression Device [OM.PC] Per Unit Routine Oth 12/17/16 17:54 Ordered Resuscitation Status Routine Resus Stat 12/17/16 17:53 Ordered Medication Orders Folic Acid (Folic Acid) 1 mg PO DAILY [facility] Multivitamins/Minerals 10 ml/Thiamine HCl 100 mg/ Folic Acid 1 mg/ Sodium Chloride 1,011.2 mls @ 150 mls/hr IV ONETIME ONE Stop: 12/17/16 22:29 Last Admin: 12/17/16 17:00 Dose: 150 mls/hr Sodium Chloride (Normal Saline) 1,000 mls @ 125 mls/hr IV ASDIRECTED [facility]1983 Lorazepam (Ativan) 0 mg IVPUSH Q4H PRN; Protocol PRN Reason: Agitation Ondansetron HCl (Zofran) 8 mg IVPUSH Q8H PRN PRN Reason: Nausea/Vomiting Thiamine HCl (Vitamin B-1) 100 mg PO DAILY [facility] Assessment/Plan Comment:: 31 yo male with alcohol abuse and dependence who presents with acute alcohol intoxication. Patient is requesting help with detox currently but he has a history of leaving [facility] when he ken[place]. We will place him on CIWA protocol with prn ativan, folic acid and thiamine.
[2016-12-17] MEDS: LORazepam 2 MG/ML MDV IVPUSH PRN (20:04)
[2016-12-18] MEDS: Sodium Chloride 0.9% 1,000 ML IV SCH ×3 (00:04→16:55)
[2016-12-18] MEDS: Ondansetron 4 MG/2 ML SDV IVPUSH PRN ×3 (00:16→16:56)
[2016-12-18] MEDS: LORazepam 2 MG/ML MDV IVPUSH PRN ×6 (00:18→21:22)
[2016-12-18 05:50] LABS: CHLORIDE,CL 108 mmol/L (98-110); SODIUM,NA 143 mmol/L (136-146)
[2016-12-18] MEDS: Thiamine 100 MG Tab PO SCH (08:42)
[2016-12-18] MEDS: Folic Acid 1 MG Tab PO SCH (08:42)
--- NOTE | 2016-12-18 09:00 | PCM.PN ---
<Baluch,Octavio - Last Filed: 12/18/16 08:54> - General Info Date of Service: 12/18/16 Admission Dx/Problem (Free Text): Admission Diagnosis/Problem Admission Diagnosis/Problem Alcohol intoxication Subjective Update: Patient complains of headaches, nausea and vomiting. Minimal tremors. No fever, hallucinations or seizures. Attempted to eat this morning but could not. Last drink was yesterday morning. Drinks 1/5 to 1/2 gallon vodka daily. Functional Status: Reports: Urinating. Denies: Pain Controlled, Tolerating Diet , Ambulating - Review of Systems General: Reports: Weakness, Fatigue. Denies: Fever, Chills, Night Sweats, Appetite HEENT: Reports: Headaches Pulmonary: Reports: No Symptoms Cardiovascular: Reports: No Symptoms Gastrointestinal: Reports: Decreased Appetite, Nausea, Vomiting Genitourinary: Reports: No Symptoms Musculoskeletal: Reports: No Symptoms Skin: Reports: No Symptoms Neurological: Reports: Headache, Tremors, Weakness. Denies: Confusion, Seizure , Trouble Speaking, Change in Speech Psychiatric: Reports: Anxiety, Agitation. Denies: Hallucinations, Suicidal Ideation, Homicidal Ideation - Patient Data Vitals - Most Recent: Last Vital Signs Temp 36.7 C 12/18/16 07:56 Pulse 75 12/18/16 04:00 Resp 16 12/18/16 07:56 BP 150/103 H 12/18/16 07:56 Pulse Ox 94 L 12/18/16 07:56 Weight - Most Recent: 107.592 kg I&O - Last 24 Hours: Intake & Output 12/17/16 12/18/16 12/18/16 22:59 06:59 14:59 Intake Total 1950 Output Total 1250 Balance 700 Lab Results Last 24 Hours: Laboratory Results - last 24 hr 12/17/16 12/17/16 12/18/16 Range/Units 20:10 20:10 05:07 WBC 6.41 (4.0-11.0) K/uL RBC 4.57 (4.50-5.90) M/uL Hgb 14.1 (13.0-17.0) g/dL Hct 42.2 (38.0-50.0) % MCV 92.3 (80.0-98.0) fL MCH 30.9 (27.0-32.0) pg MCHC 33.4 (31.0-37.0) g/dL RDW Std Deviation 43.9 (28.0-62.0) fl RDW Coeff of Jennifer 13 (11.0-15.0) % Plt Count 124 L (150-400) K/uL MPV 9.40 (7.40-12.00) fL Neut % (Auto) 49.0 (48.0-80.0) % Lymph % (Auto) 34.3 (16.0-40.0) % Archer % (Auto) 12.5 (0.0-15.0) % Eos % (Auto) 3.3 (0.0-7.0) % Baso % (Auto) 0.9 (0.0-1.5) % Neut # (Auto) 3.1 (1.4-5.7) K/uL Lymph # (Auto) 2.2 (0.6-2.4) K/uL Archer # (Auto) 0.8 (0.0-0.8) K/uL Eos # (Auto) 0.2 (0.0-0.7) K/uL Baso # (Auto) 0.1 (0.0-0.1) K/uL Nucleated RBC % 0.0 /100WBC Nucleated RBCs # 0 K/uL Sodium (136-146) mmol/L Potassium (3.5-5.1) mmol/L Chloride (98-110) mmol/L Carbon Dioxide (21-31) mmol/L BUN (6.0-23.0) mg/dL Creatinine (0.6-1.5) mg/dL Est Cr Clr Drug Dosing mL/min Estimated GFR (MDRD) ml/min Glucose (60-110) mg/dL Calcium (8.8-10.8) mg/dL Total Bilirubin (0.1-1.5) mg/dL AST (5-40) IU/L ALT (8-54) IU/L Alkaline Phosphatase (40-150) Total Protein (6.0-8.0) g/dL Albumin (3.5-5.0) g/dL Globulin (2.0-3.5) g/dL Albumin/Globulin Ratio (1.3-2.8) Urine Color YELLOW Urine Appearance HAZY Urine pH 6.0 (5.0-8.0) Ur Specific [place] 1.025 (1.001-1.035) Urine Protein TRACE (NEGATIVE) mg/dL Urine Glucose (UA) NEGATIVE (NEGATIVE) mg/dL Urine Ketones 40 H (NEGATIVE) mg/dL Urine Occult Blood NEGATIVE (NEGATIVE) Urine Nitrite NEGATIVE (NEGATIVE) Urine Bilirubin SMALL H (NEGATIVE) Urine Ictotest POSITIVE Urine Urobilinogen 2.0 H (<2.0) EU/dL Ur Leukocyte Esterase NEGATIVE (NEGATIVE) Urine RBC 0-1 (0-2/HPF) Urine WBC 0-1 (0-5/HPF) Ur Epithelial Cells RARE (NONE-FEW) Urine Bacteria FEW (NEGATIVE) Urine Mucus MODERATE (NONE-MOD) Urine Opiates Screen NEGATIVE (NEGATIVE) Ur Oxycodone Screen NEGATIVE (NEGATIVE) Urine Methadone Screen NEGATIVE (NEGATIVE) Ur Barbiturates Screen NEGATIVE (NEGATIVE) Ur Phencyclidine Scrn NEGATIVE (NEGATIVE) Ur Amphetamine Screen NEGATIVE (NEGATIVE) U Methamphetamines Scrn NEGATIVE (NEGATIVE) U Benzodiazepines Scrn NEGATIVE (NEGATIVE) U Cocaine Metab Screen NEGATIVE (NEGATIVE) U Marijuana (THC) Screen NEGATIVE (NEGATIVE) 12/18/16 Range/Units 05:07 WBC (4.0-11.0) K/uL RBC (4.50-5.90) M/uL Hgb (13.0-17.0) g/dL Hct (38.0-50.0) % MCV (80.0-98.0) fL MCH (27.0-32.0) pg MCHC (31.0-37.0) g/dL RDW Std Deviation (28.0-62.0) fl RDW Coeff of Jennifer (11.0-15.0) % Plt Count (150-400) K/uL MPV (7.40-12.00) fL Neut % (Auto) (48.0-80.0) % Lymph % (Auto) (16.0-40.0) % Archer % (Auto) (0.0-15.0) % Eos % (Auto) (0.0-7.0) % Baso % (Auto) (0.0-1.5) % Neut # (Auto) (1.4-5.7) K/uL Lymph # (Auto) (0.6-2.4) K/uL Archer # (Auto) (0.0-0.8) K/uL Eos # (Auto) (0.0-0.7) K/uL Baso # (Auto) (0.0-0.1) K/uL Nucleated RBC % /100WBC Nucleated RBCs # K/uL Sodium 143 (136-146) mmol/L Potassium 3.5 (3.5-5.1) mmol/L Chloride 108 (98-110) mmol/L Carbon Dioxide 24 (21-31) mmol/L BUN 6 (6.0-23.0) mg/dL Creatinine 0.8 (0.6-1.5) mg/dL Est Cr Clr Drug Dosing 131.34 mL/min Estimated GFR (MDRD) > 60.0 ml/min Glucose 89 (60-110) mg/dL Calcium 8.3 L (8.8-10.8) mg/dL Total Bilirubin 1.1 (0.1-1.5) mg/dL AST 54 H (5-40) IU/L ALT 31 (8-54) IU/L Alkaline Phosphatase 103 (40-150) Total Protein 6.2 (6.0-8.0) g/dL Albumin 3.2 L (3.5-5.0) g/dL Globulin 3.0 (2.0-3.5) g/dL Albumin/Globulin Ratio 1.1 L (1.3-2.8) Urine Color Urine Appearance Urine pH (5.0-8.0) Ur Specific [place] (1.001-1.035) Urine Protein (NEGATIVE) mg/dL Urine Glucose (UA) (NEGATIVE) mg/dL Urine Ketones (NEGATIVE) mg/dL Urine Occult Blood (NEGATIVE) Urine Nitrite (NEGATIVE) Urine Bilirubin (NEGATIVE) Urine Ictotest Urine Urobilinogen (<2.0) EU/dL Ur Leukocyte Esterase (NEGATIVE) Urine RBC (0-2/HPF) Urine WBC (0-5/HPF) Ur Epithelial Cells (NONE-FEW) Urine Bacteria (NEGATIVE) Urine Mucus (NONE-MOD) Urine Opiates Screen (NEGATIVE) Ur Oxycodone Screen (NEGATIVE) Urine Methadone Screen (NEGATIVE) Ur Barbiturates Screen (NEGATIVE) Ur Phencyclidine Scrn (NEGATIVE) Ur Amphetamine Screen (NEGATIVE) U Methamphetamines Scrn (NEGATIVE) U Benzodiazepines Scrn (NEGATIVE) U Cocaine Metab Screen (NEGATIVE) U Marijuana (THC) Screen (NEGATIVE) Med Orders - Current: Current Medications Folic Acid (Folic Acid) 1 mg PO DAILY [facility] Last Admin: 12/18/16 08:42 Dose: 1 mg Sodium Chloride (Normal Saline) 1,000 mls @ 125 mls/hr IV ASDIRECTED [facility] Last Admin: 12/18/16 08:43 Dose: 125 mls/hr Lorazepam (Ativan) 0 mg IVPUSH Q4H PRN; Protocol PRN Reason: Agitation Last Admin: 12/18/16 04:50 Dose: 2 mg Ondansetron HCl (Zofran) 8 mg IVPUSH Q8H PRN PRN Reason: Nausea/Vomiting Last Admin: 12/18/16 08:53 Dose: 8 mg Thiamine HCl (Vitamin B-1) 100 mg PO DAILY [facility] Last Admin: 12/18/16 08:42 Dose: 100 mg Discontinued Medications Sodium Chloride (Normal Saline) 1,000 mls @ 999 mls/hr IV STAT ONE Stop: 12/17/16 14:10 Last Admin: 12/17/16 14:39 Dose: 999 mls/hr Multivitamins/Minerals 10 ml/Thiamine HCl 100 mg/ Folic Acid 1 mg/ Sodium Chloride 1,011.2 mls @ 150 mls/hr IV ONETIME ONE Stop: 12/17/16 22:29 Last Admin: 12/17/16 17:00 Dose: 150 mls/hr Ondansetron HCl (Zofran) 4 mg IVPUSH ONETIME ONE Stop: 12/17/16 13:11 Last Admin: 12/17/16 14:40 Dose: 4 mg - Exam General: Alert, Oriented, Cooperative, Mild Distress HEENT: Pupils Equal, Pupils Reactive Neck: Supple Lungs: Clear to Auscultation, Normal Respiratory Effort Cardiovascular: Regular Rate, Regular Rhythm GI/Abdominal Exam: Normal Bowel Sounds, Soft, No Organomegaly, No Distention, Tender Extremities: Normal Inspection, No Pedal Edema, Other (No tremor ) Peripheral Pulses: 2+: Dorsalis Pedis (L), Dorsalis Pedis (R) Skin: Warm, Dry, Intact Neurological: No New Focal Deficit - Problem List Review Problem List Initiated/Reviewed/Updated: Yes - Plan Plan:: Assessment: 31 yo male with alcohol use disorder admitted for for Acute Alcohol intoxication and withdrawal. Patient is requesting help with detox currently but he has a history of leaving [facility] when he k[place]. On [facility] protocol with prn ativan, folic acid and thiamine. 1. Acute Alcohol withdrawal, recent CIWA score 10 2. Acute Alcohol Intoxication, resolved 3. Alcohol Use Disorder 4. elevated AST, likely secondary to #3 5. Thrombocytopenia, likely secondary to #3 6. Nausea and Vomiting, on Zofran 7. Heartburn Plan: 1. continue CIWA assessment 2. continue Ativan PRN as per [facility] protocol 3. continue Zofran PRN for N/V 4. Start Protonix 40 mg IV QD 5. continue Folic Acid and Thiamine 6. Continue IV NS until patient is able to tolerate PO 7. Advance diet as tolerated <Black Gray - Last Filed: 12/18/16 20:31> - Patient Data Vitals - Most Recent: Last Vital Signs Temp 36.8 C 12/18/16 16:00 Pulse 88 12/18/16 16:00 Resp 18 12/18/16 16:00 BP 125/85 12/18/16 16:00 Pulse Ox 96 12/18/16 16:00 I&O - Last 24 Hours: Intake & Output 12/18/16 12/18/16 12/18/16 06:59 14:59 22:59 Intake Total 1950 1009 Output Total 1250 Balance 700 1009 Lab Results Last 24 Hours: Laboratory Results - last 24 hr 12/17/16 12/17/16 12/18/16 Range/Units 20:10 20:10 05:07 WBC 6.41 (4.0-11.0) K/uL RBC 4.57 (4.50-5.90) M/uL Hgb 14.1 (13.0-17.0) g/dL Hct 42.2 (38.0-50.0) % MCV 92.3 (80.0-98.0) fL MCH 30.9 (27.0-32.0) pg MCHC 33.4 (31.0-37.0) g/dL RDW Std Deviation 43.9 (28.0-62.0) fl RDW Coeff of Jennifer 13 (11.0-15.0) % Plt Count 124 L (150-400) K/uL MPV 9.40 (7.40-12.00) fL Neut % (Auto) 49.0 (48.0-80.0) % Lymph % (Auto) 34.3 (16.0-40.0) % Archer % (Auto) 12.5 (0.0-15.0) % Eos % (Auto) 3.3 (0.0-7.0) % Baso % (Auto) 0.9 (0.0-1.5) % Neut # (Auto) 3.1 (1.4-5.7) K/uL Lymph # (Auto) 2.2 (0.6-2.4) K/uL Archer # (Auto) 0.8 (0.0-0.8) K/uL Eos # (Auto) 0.2 (0.0-0.7) K/uL Baso # (Auto) 0.1 (0.0-0.1) K/uL Nucleated RBC % 0.0 /100WBC Nucleated RBCs # 0 K/uL Sodium (136-146) mmol/L Potassium (3.5-5.1) mmol/L Chloride (98-110) mmol/L Carbon Dioxide (21-31) mmol/L BUN (6.0-23.0) mg/dL Creatinine (0.6-1.5) mg/dL Est Cr Clr Drug Dosing mL/min Estimated GFR (MDRD) ml/min Glucose (60-110) mg/dL Calcium (8.8-10.8) mg/dL Total Bilirubin (0.1-1.5) mg/dL AST (5-40) IU/L ALT (8-54) IU/L Alkaline Phosphatase (40-150) Total Protein (6.0-8.0) g/dL Albumin (3.5-5.0) g/dL Globulin (2.0-3.5) g/dL Albumin/Globulin Ratio (1.3-2.8) Urine Color YELLOW Urine Appearance HAZY Urine pH 6.0 (5.0-8.0) Ur Specific [place] 1.025 (1.001-1.035) Urine Protein TRACE (NEGATIVE) mg/dL Urine Glucose (UA) NEGATIVE (NEGATIVE) mg/dL Urine Ketones 40 H (NEGATIVE) mg/dL Urine Occult Blood NEGATIVE (NEGATIVE) Urine Nitrite NEGATIVE (NEGATIVE) Urine Bilirubin SMALL H (NEGATIVE) Urine Ictotest POSITIVE Urine Urobilinogen 2.0 H (<2.0) EU/dL Ur Leukocyte Esterase NEGATIVE (NEGATIVE) Urine RBC 0-1 (0-2/HPF) Urine WBC 0-1 (0-5/HPF) Ur Epithelial Cells RARE (NONE-FEW) Urine Bacteria FEW (NEGATIVE) Urine Mucus MODERATE (NONE-MOD) Urine Opiates Screen NEGATIVE (NEGATIVE) Ur Oxycodone Screen NEGATIVE (NEGATIVE) Urine Methadone Screen NEGATIVE (NEGATIVE) Ur Barbiturates Screen NEGATIVE (NEGATIVE) Ur Phencyclidine Scrn NEGATIVE (NEGATIVE) Ur Amphetamine Screen NEGATIVE (NEGATIVE) U Methamphetamines Scrn NEGATIVE (NEGATIVE) U Benzodiazepines Scrn NEGATIVE (NEGATIVE) U Cocaine Metab Screen NEGATIVE (NEGATIVE) U Marijuana (THC) Screen NEGATIVE (NEGATIVE) 12/18/16 Range/Units 05:07 WBC (4.0-11.0) K/uL RBC (4.50-5.90) M/uL Hgb (13.0-17.0) g/dL Hct (38.0-50.0) % MCV (80.0-98.0) fL MCH (27.0-32.0) pg MCHC (31.0-37.0) g/dL RDW Std Deviation (28.0-62.0) fl RDW Coeff of Jennifer (11.0-15.0) % Plt Count (150-400) K/uL MPV (7.40-12.00) fL Neut % (Auto) (48.0-80.0) % Lymph % (Auto) (16.0-40.0) % Archer % (Auto) (0.0-15.0) % Eos % (Auto) (0.0-7.0) % Baso % (Auto) (0.0-1.5) % Neut # (Auto) (1.4-5.7) K/uL Lymph # (Auto) (0.6-2.4) K/uL Archer # (Auto) (0.0-0.8) K/uL Eos # (Auto) (0.0-0.7) K/uL Baso # (Auto) (0.0-0.1) K/uL Nucleated RBC % /100WBC Nucleated RBCs # K/uL Sodium 143 (136-146) mmol/L Potassium 3.5 (3.5-5.1) mmol/L Chloride 108 (98-110) mmol/L Carbon Dioxide 24 (21-31) mmol/L BUN 6 (6.0-23.0) mg/dL Creatinine 0.8 (0.6-1.5) mg/dL Est Cr Clr Drug Dosing 131.34 mL/min Estimated GFR (MDRD) > 60.0 ml/min Glucose 89 (60-110) mg/dL Calcium 8.3 L (8.8-10.8) mg/dL Total Bilirubin 1.1 (0.1-1.5) mg/dL AST 54 H (5-40) IU/L ALT 31 (8-54) IU/L Alkaline Phosphatase 103 (40-150) Total Protein 6.2 (6.0-8.0) g/dL Albumin 3.2 L (3.5-5.0) g/dL Globulin 3.0 (2.0-3.5) g/dL Albumin/Globulin Ratio 1.1 L (1.3-2.8) Urine Color Urine Appearance Urine pH (5.0-8.0) Ur Specific [place] (1.001-1.035) Urine Protein (NEGATIVE) mg/dL Urine Glucose (UA) (NEGATIVE) mg/dL Urine Ketones (NEGATIVE) mg/dL Urine Occult Blood (NEGATIVE) Urine Nitrite (NEGATIVE) Urine Bilirubin (NEGATIVE) Urine Ictotest Urine Urobilinogen (<2.0) EU/dL Ur Leukocyte Esterase (NEGATIVE) Urine RBC (0-2/HPF) Urine WBC (0-5/HPF) Ur Epithelial Cells (NONE-FEW) Urine Bacteria (NEGATIVE) Urine Mucus (NONE-MOD) Urine Opiates Screen (NEGATIVE) Ur Oxycodone Screen (NEGATIVE) Urine Methadone Screen (NEGATIVE) Ur Barbiturates Screen (NEGATIVE) Ur Phencyclidine Scrn (NEGATIVE) Ur Amphetamine Screen (NEGATIVE) U Methamphetamines Scrn (NEGATIVE) U Benzodiazepines Scrn (NEGATIVE) U Cocaine Metab Screen (NEGATIVE) U Marijuana (THC) Screen (NEGATIVE) Med Orders - Current: Current Medications Folic Acid (Folic Acid) 1 mg PO DAILY [facility] Last Admin: 12/18/16 08:42 Dose: 1 mg Sodium Chloride (Normal Saline) 1,000 mls @ 125 mls/hr IV ASDIRECTED [facility] Last Admin: 12/18/16 16:55 Dose: 125 mls/hr Pantoprazole Sodium 40 mg/ (Sodium Chloride) 10 mls @ 300 mls/hr IVPUSH DAILY [facility] Last Admin: 12/18/16 11:00 Dose: 300 mls/hr Lorazepam (Ativan) 0 mg IVPUSH Q4H PRN; Protocol PRN Reason: Agitation Last Admin: 12/18/16 17:22 Dose: 1 mg Ondansetron HCl (Zofran) 8 mg IVPUSH Q8H PRN PRN Reason: Nausea/Vomiting Last Admin: 12/18/16 16:56 Dose: 8 mg Thiamine HCl (Vitamin B-1) 100 mg PO DAILY [facility] Last Admin: 12/18/16 08:42 Dose: 100 mg Discontinued Medications Sodium Chloride (Normal Saline) 1,000 mls @ 999 mls/hr IV STAT ONE Stop: 12/17/16 14:10 Last Admin: 12/17/16 14:39 Dose: 999 mls/hr Multivitamins/Minerals 10 ml/Thiamine HCl 100 mg/ Folic Acid 1 mg/ Sodium Chloride 1,011.2 mls @ 150 mls/hr IV ONETIME ONE Stop: 12/17/16 22:29 Last Admin: 12/17/16 17:00 Dose: 150 mls/hr Ondansetron HCl (Zofran) 4 mg IVPUSH ONETIME ONE Stop: 12/17/16 13:11 Last Admin: 12/17/16 14:40 Dose: 4 mg - My Orders Last 24 Hours: My Active Orders 12/19/16 05:11 CMP [COMPREHENSIVE METABOLIC PN,CMP] [CHEM] Routine - Free Text/Narrative Note: I have examined this patient and followed his lab testing. I agree with the exam and the plans as documented by Dr. Olmstead. The patient has felt that he is not yet ready to eat this evening. He continues to get IV lorazepam. Will continue through tomorrow morning.
[2016-12-18] MEDS: Pantoprazole 40 MG in Sodium Chloride 0.9% 10 ML IVPUSH SCH (11:00)
[2016-12-19] MEDS: Sodium Chloride 0.9% 1,000 ML IV SCH ×2 (00:33→07:59)
[2016-12-19] MEDS: LORazepam 2 MG/ML MDV IVPUSH PRN ×4 (01:22→08:08)
[2016-12-19 06:48] LABS: CHLORIDE,CL 108 mmol/L (98-110); SODIUM,NA 139 mmol/L (136-146)
[2016-12-19] MEDS: Pantoprazole 40 MG in Sodium Chloride 0.9% 10 ML IVPUSH SCH (08:04)
[2016-12-19] MEDS: Folic Acid 1 MG Tab PO SCH (08:06)
[2016-12-19] MEDS: Thiamine 100 MG Tab PO SCH (08:06)
[2016-12-19] MEDS ORDERED: LORazepam 0.5 MG Tab PO PRN ×3 (11:32→13:28)
[2016-12-19 14:50] VITALS: BP 132/80
--- NOTE | 2016-12-19 14:54 | PCM.DCSUM1 ---
<Baluch,Octavio - Last Filed: 12/19/16 14:48> Discharge Summary - Hospital Course Free Text/Narrative:: Patient was admitted with Alcohol Intoxication and withdrawal. He was admitted to floor and placed on CIWA protocol. He was treated with IV NS and Ativan. He was discharged on 12/19/16. At discharge he was alert and oriented, amblulatory , tolerating PO intake and urinating. He states he had PCP in [place] and will be returning there and will f/u there. - Discharge Data Discharge Date: 12/19/16 Discharge Disposition: Home, Self-Care 01 Condition: Good - Patient Instructions Diet: Regular Diet as Tolerated, No Alcoholic Beverages Activity: Apply Ice Driving: Do Not Drive (Do not drive for 24 hours ) - Discharge Plan Home Medications: Home Meds LORazepam 1 mg PO Q2H PRN 12/18/16 [History] Patient Handouts: Alcohol Intoxication, [id number] - Discharge Summary/Plan Comment DC Time >30 min.: No Discharge Summary/Plan Comment: 1. You had librium on your medication list. This medication is not safe in people with history of Liver disease. Please discuss this with your pcp before continuing use. - Patient Data Vitals - Most Recent: Last Vital Signs Temp 37.2 C 12/19/16 08:00 Pulse 73 12/19/16 08:00 Resp 19 12/19/16 08:00 BP 135/84 12/19/16 08:00 Pulse Ox 96 12/19/16 08:00 Weight - Most Recent: 107.592 kg I&O - Last 24 hours: Intake & Output 12/18/16 12/19/16 12/19/16 22:59 06:59 14:59 Intake Total 1660 1000 Output Total 1150 Balance 510 1000 Lab Results - Last 24 hrs: Laboratory Results - last 24 hr 12/19/16 Range/Units 06:15 Sodium 139 (136-146) mmol/L Potassium 3.6 (3.5-5.1) mmol/L Chloride 108 (98-110) mmol/L Carbon Dioxide 22 (21-31) mmol/L BUN 5 L (6.0-23.0) mg/dL Creatinine 0.8 (0.6-1.5) mg/dL Est Cr Clr Drug Dosing 131.34 mL/min Estimated GFR (MDRD) > 60.0 ml/min Glucose 83 (60-110) mg/dL Calcium 8.4 L (8.8-10.8) mg/dL Total Bilirubin 1.6 H (0.1-1.5) mg/dL AST 40 (5-40) IU/L ALT 24 (8-54) IU/L Alkaline Phosphatase 81 (40-150) Total Protein 6.2 (6.0-8.0) g/dL Albumin 3.1 L (3.5-5.0) g/dL Globulin 3.1 (2.0-3.5) g/dL Albumin/Globulin Ratio 1.0 L (1.3-2.8) Med Orders - Current: Current Medications Folic Acid (Folic Acid) 1 mg PO DAILY [facility] Last Admin: 12/19/16 08:06 Dose: 1 mg Sodium Chloride (Normal Saline) 1,000 mls @ 125 mls/hr IV ASDIRECTED [facility] Last Admin: 12/19/16 07:59 Dose: 125 mls/hr Pantoprazole Sodium 40 mg/ (Sodium Chloride) 10 mls @ 300 mls/hr IVPUSH DAILY [facility] Last Admin: 12/19/16 08:04 Dose: 300 mls/hr Lorazepam (Ativan) 1 mg PO Q4H PRN PRN Reason: CIWA over 10 Lorazepam (Ativan) 1 mg PO Q6H PRN PRN Reason: Anxiety Last Admin: 12/19/16 14:43 Dose: 1 mg Ondansetron HCl (Zofran) 8 mg IVPUSH Q8H PRN PRN Reason: Nausea/Vomiting Last Admin: 12/18/16 16:56 Dose: 8 mg Thiamine HCl (Vitamin B-1) 100 mg PO DAILY [facility] Last Admin: 12/19/16 08:06 Dose: 100 mg Discontinued Medications Sodium Chloride (Normal Saline) 1,000 mls @ 999 mls/hr IV STAT ONE Stop: 12/17/16 14:10 Last Admin: 12/17/16 14:39 Dose: 999 mls/hr Multivitamins/Minerals 10 ml/Thiamine HCl 100 mg/ Folic Acid 1 mg/ Sodium Chloride 1,011.2 mls @ 150 mls/hr IV ONETIME ONE Stop: 12/17/16 22:29 Last Admin: 12/17/16 17:00 Dose: 150 mls/hr Lorazepam (Ativan) 0 mg IVPUSH Q4H PRN; Protocol PRN Reason: Agitation Last Admin: 12/19/16 01:22 Dose: 1 mg Lorazepam (Ativan) 0 mg IVPUSH ASDIRECTED PRN; Protocol PRN Reason: Agitation Last Admin: 12/19/16 08:08 Dose: 1 mg Lorazepam (Ativan) 0.5 mg PO Q6H PRN PRN Reason: Anxiety Ondansetron HCl (Zofran) 4 mg IVPUSH ONETIME ONE Stop: 12/17/16 13:11 Last Admin: 12/17/16 14:40 Dose: 4 mg *Q Meaningful Use (DIS) - VTE *Q VTE Criteria *Q: - Stroke *Q Stroke Criteria *Q: - AMI *Q AMI Criteria *Q: <Black Gray - Last Filed: 12/19/16 18:53> - Patient Data Vitals - Most Recent: Last Vital Signs Temp 37.2 C 12/19/16 12:00 Pulse 77 12/19/16 12:00 Resp 19 12/19/16 12:00 BP 132/80 12/19/16 12:00 Pulse Ox 96 12/19/16 12:00 I&O - Last 24 hours: Intake & Output 12/19/16 12/19/16 12/19/16 06:59 14:59 22:59 Intake Total 1660 1000 900 Output Total 1150 1600 Balance 510 1000 -700 Lab Results - Last 24 hrs: Laboratory Results - last 24 hr 12/19/16 Range/Units 06:15 Sodium 139 (136-146) mmol/L Potassium 3.6 (3.5-5.1) mmol/L Chloride 108 (98-110) mmol/L Carbon Dioxide 22 (21-31) mmol/L BUN 5 L (6.0-23.0) mg/dL Creatinine 0.8 (0.6-1.5) mg/dL Est Cr Clr Drug Dosing 131.34 mL/min Estimated GFR (MDRD) > 60.0 ml/min Glucose 83 (60-110) mg/dL Calcium 8.4 L (8.8-10.8) mg/dL Total Bilirubin 1.6 H (0.1-1.5) mg/dL AST 40 (5-40) IU/L ALT 24 (8-54) IU/L Alkaline Phosphatase 81 (40-150) Total Protein 6.2 (6.0-8.0) g/dL Albumin 3.1 L (3.5-5.0) g/dL Globulin 3.1 (2.0-3.5) g/dL Albumin/Globulin Ratio 1.0 L (1.3-2.8) Med Orders - Current: Current Medications Discontinued Medications Folic Acid (Folic Acid) 1 mg PO DAILY [facility] Last Admin: 12/19/16 08:06 Dose: 1 mg Sodium Chloride (Normal Saline) 1,000 mls @ 999 mls/hr IV STAT ONE Stop: 12/17/16 14:10 Last Admin: 12/17/16 14:39 Dose: 999 mls/hr Multivitamins/Minerals 10 ml/Thiamine HCl 100 mg/ Folic Acid 1 mg/ Sodium Chloride 1,011.2 mls @ 150 mls/hr IV ONETIME ONE Stop: 12/17/16 22:29 Last Admin: 12/17/16 17:00 Dose: 150 mls/hr Sodium Chloride (Normal Saline) 1,000 mls @ 125 mls/hr IV ASDIRECTED [facility] Last Admin: 12/19/16 07:59 Dose: 125 mls/hr Pantoprazole Sodium 40 mg/ (Sodium Chloride) 10 mls @ 300 mls/hr IVPUSH DAILY [facility] Last Admin: 12/19/16 08:04 Dose: 300 mls/hr Lorazepam (Ativan) 0 mg IVPUSH Q4H PRN; Protocol PRN Reason: Agitation Last Admin: 12/19/16 01:22 Dose: 1 mg Lorazepam (Ativan) 0 mg IVPUSH ASDIRECTED PRN; Protocol PRN Reason: Agitation Last Admin: 12/19/16 08:08 Dose: 1 mg Lorazepam (Ativan) 1 mg PO Q4H PRN PRN Reason: CIWA over 10 Lorazepam (Ativan) 0.5 mg PO Q6H PRN PRN Reason: Anxiety Lorazepam (Ativan) 1 mg PO Q6H PRN PRN Reason: Anxiety Last Admin: 12/19/16 14:43 Dose: 1 mg Ondansetron HCl (Zofran) 4 mg IVPUSH ONETIME ONE Stop: 12/17/16 13:11 Last Admin: 12/17/16 14:40 Dose: 4 mg Ondansetron HCl (Zofran) 8 mg IVPUSH Q8H PRN PRN Reason: Nausea/Vomiting Last Admin: 12/18/16 16:56 Dose: 8 mg Thiamine HCl (Vitamin B-1) 100 mg PO DAILY TAMMIE Last Admin: 12/19/16 08:06 Dose: 100 mg *Q Meaningful Use (DIS) - VTE *Q VTE Criteria *Q: - Stroke *Q Stroke Criteria *Q: - AMI *Q AMI Criteria *Q: - Free Text/Narrative Note: Dr. Gray writes: I have followed this patient during his hospitalization and I agree with Dr. Olmstead's note, assessment and plan. The patient is stable for discharge and has discussed his plans with me to return to [place] and seek alcohol rehabilitation there. I have agreed with the prescription of lorazepam for use as he returns.
== END 2016-12-19 16:20 | disposition home or self-care (01) | DRG 897 ==
LOC: MW.ED 13:05 → MW.MS 15:46
PROVIDERS: ADMIT Internal Medicine; ATTEND Internal Medicine
DX: F10.239 Alcohol dependence with withdrawal, unspecified (principal); F10.229 Alcohol dependence with intoxication, unspecified; I10 Essential (primary) hypertension; E66.9 Obesity, unspecified; Z68.30 Body mass index [BMI] 30.0-30.9, adult
CPT/HCPCS: 36415; 70450; 70450-26; 80053; 80305; 81001; 85025; 93005; 96361; 96374; 99284; 99285-25; A9270-GY; C9113; G0480; J2060; J2405; J3411; J7040

== ENCOUNTER 2016-12-20 00:17 | Emergency (ER) | payer MEDICAID ==
--- NOTE | 2016-12-20 00:25 | EDM.PDOC ---
ED HPI GENERAL MEDICAL PROBLEM - General Chief Complaint: Drug or Alcohol Abuse Stated Complaint: ALCOHOLISM Time Seen by Provider: 12/20/16 00:19 - History of Present Illness INITIAL COMMENTS - FREE TEXT/NARRATIVE: HISTORY AND PHYSICAL: History of present illness: The patient is a 31-year-old male who presents via EMS after he contacted police and the crisis line for alcohol intoxication and on EMS arrival he seemed to be more altered than usual as the EMS people know him, and they called me to ask for advice. I said if they felt uncomfortable and please at the scene also felt uncomfortable patient transport him here. The patient was just discharged earlier today on Wednesday after a 2 day stay in our hospital for alcohol withdrawal and detox. He proceeded to leave the hospital and go and drink. Patient does not offer much information here but says he would like to go back to his hotel. He is up and ambulating to the bathroom here with some minor assistance. The patient denies any complaints of any pain. When EMS arrived the patient was sitting in a chair. According to them he has checked out of his hotel Review of systems: As per history of present illness and below otherwise all systems reviewed and negative. Past medical history: As per history of present illness and as reviewed below otherwise noncontributory. Surgical history: As per history of present illness and as reviewed below otherwise noncontributory. Social history: No reported history of drug or alcohol abuse. Family history: As per history of present illness and as reviewed below otherwise noncontributory. Physical exam: Gen.: Well-developed well-nourished male who is nontoxic and vital signs have been reviewed by me. Patient initially would not open his eyes or answer questions but now he is up walking about the ER with nursing and is speaking more asking to go back to his hotel. He shouldn't is very well-kept and actually has cologne on HEENT: Atraumatic, normocephalic, there are no palpable deformities or soft tissue swelling of the scalp and there are no midline step-offs in his defects of the cervical spine, pupils reactive, negative for conjunctival pallor or scleral icterus, mucous membranes moist, throat clear, neck supple, nontender, trachea midline. Lungs: Clear to auscultation, breath sounds equal bilaterally, chest nontender. Heart: S1S2, regular, negative for clicks, rubs, or JVD. Abdomen: Soft, nondistended, nontender. Negative for masses or hepatosplenomegaly. Negative for costovertebral tenderness. Pelvis: Stable nontender. Genitourinary: Deferred. Rectal: Deferred. Extremities: Atraumatic, negative for cords or calf pain. Neurovascular unremarkable. Full range of motion without defects or deficits Neuro: Awake, alert, oriented. Cranial nerves II through XII unremarkable. Motor and sensory unremarkable throughout. Exam nonfocal. Diagnostics: [employer]: [] We will contact the police as the patient does not want further evaluation here and would like to go back to his hotel. We will offer him detox with the police and have them pick him up Impression: Alcohol intoxication Definitive disposition and diagnosis as appropriate pending reevaluation and review of above. denies any pain Pain Score (Numeric/FACES): 0 - Related Data Allergies Allergy/AdvReac Type Severity Reaction Status Date / Time No Known Allergies Allergy Verified 12/20/16 00:22 Home Meds: Home Meds LORazepam 1 mg PO BID PRN 12/18/16 [History] Past Medical History - Past Health History Medical/Surgical History: Denies Medical/Surgical History HEENT History: Reports: None Cardiovascular History: Reports: Hypertension Respiratory History: Reports: None Gastrointestinal History: Reports: None Other Gastrointestinal History: states has liver failure Genitourinary History: Reports: None Musculoskeletal History: Reports: None Neurological History: Reports: Seizure, Other (See Below) Other Neuro History: alcohol withdrawl seizure in the past. Psychiatric History: Reports: Addiction Other Psychiatric History: etoh abuse, states " have gone through withdrawls in the past". when pt asked if this felt like withdrawls he stated "no". Endocrine/Metabolic History: Reports: Obesity/BMI 30+ Hematologic History: Reports: None Immunologic History: Reports: None Oncologic (Cancer) History: Reports: None Dermatologic History: Reports: None - Infectious Disease History Infectious Disease History: Reports: None - Past Surgical History HEENT Surgical History: Reports: None Cardiovascular Surgical History: Reports: None Respiratory Surgical History: Reports: None GI Surgical History: Reports: None Male Surgical History: Reports: None Neurological Surgical History: Reports: None Musculoskeletal Surgical History: Reports: None Oncologic Surgical History: Reports: None Social & Family History - Family History Family Medical History: Noncontributory Cardiac: Reports: [place] Neurological: Reports: TIA Psychiatric: Reports: Other (See Below) Other Psychiatric Family History: etoh abuse - Tobacco Use Smoking Status *Q: Never Smoker Second Hand Smoke Exposure: No - Caffeine Use Caffeine Use: Reports: None Caffeine Use Comment: pt unable to answer - Alcohol Use Days Per Week of Alcohol Use: 7 Number of Drinks Per Day: 8 Total Drinks Per Week: 56 - Recreational Drug Use Recreational Drug Use: No ED ROS GENERAL - Review of Systems Review Of Systems: ROS reveals no pertinent complaints other than HPI. ED EXAM, GENERAL - Physical Exam Exam: See Below (See dictation) Course - Vital Signs Last Recorded V/S: Last Vital Signs Temp 36.2 C 12/20/16 00:24 Pulse 76 12/20/16 00:24 Resp 18 12/20/16 00:24 BP 142/97 H 12/20/16 00:24 Pulse Ox 97 12/20/16 00:24 - Orders/Labs/Meds Orders: Active Orders 24 hr Category Date Time Status Blood Glucose Check, Bedside [RC] ONETIME Care 12/20/16 00:22 Active Head wo Cont [CT] Stat Exams 12/20/16 00:22 Stop Req Labs: Laboratory Tests 12/20/16 Range/Units 00:23 POC Glucose 81 (60-110) mg/dL Departure - Departure Time of Disposition: 00:27 Disposition: Home, Self-Care 01 Condition: Good Clinical Impression: Alcohol intoxication Qualifiers: Complication of substance-induced condition: uncomplicated Qualified Code(s): F10.920 - Alcohol use, unspecified with intoxication, uncomplicated - Discharge Information Forms: ED Department Discharge Additional Instructions: The following information is given to patients seen in the emergency department who are being discharged to home. This information is to outline your options for follow-up care. We provide all patients seen in our emergency department with a follow-up referral. The need for follow-up, as well as the timing and circumstances, are variable depending upon the specifics of your emergency department visit. If you don't have a primary care physician on staff, we will provide you with a referral. We always advise you to contact your personal physician following an emergency department visit to inform them of the circumstance of the visit and for follow-up with them and/or the need for any referrals to a consulting specialist. The emergency department will also refer you to a specialist when appropriate. This referral assures that you have the opportunity for followup care with a specialist. All of these measure are taken in an effort to provide you with optimal care, which includes your followup. Under all circumstances we always encourage you to contact your private physician who remains a resource for coordinating your care. When calling for followup care, please make the office aware that this follow-up is from your recent emergency room visit. If for any reason you are refused follow-up, please contact the [facility] emergency department at and ask to speak to the emergency department charge nurse. [facility] Primary care- [place] [address] Please refrain from and stop using alcohol. Please try to call and follow-up with one of our clinic physicians and return to ER as needed and as discussed - My Orders Last 24 Hours: My Active Orders 12/20/16 00:22 Blood Glucose Check, Bedside [RC] ONETIME Head wo Cont [CT] Stat - Assessment/Plan Last 24 Hours: My Active Orders 12/20/16 00:22 Blood Glucose Check, Bedside [RC] ONETIME Head wo Cont [CT] Stat
[2016-12-20 01:30] VITALS: BP 123/81
== END 2016-12-20 01:20 | disposition home or self-care (01) ==
LOC: MW.ED 00:17
DX: F10.120 Alcohol abuse with intoxication, uncomplicated (principal); I10 Essential (primary) hypertension; E66.9 Obesity, unspecified
CPT/HCPCS: 82962; 99284

== ENCOUNTER 2016-12-20 22:52 | Emergency (ER) | payer MEDICAID ==
[2016-12-20] MEDS ORDERED: Sodium Chloride 0.9% 10 ML Syringe FLUSH PRN (22:57)
[2016-12-20] MEDS ORDERED: Sodium Chloride 0.9% 2.5 ML Syringe FLUSH PRN (22:57)
[2016-12-20] MEDS ORDERED: Sodium Chloride 0.9% 1,000 ML IV ONE (22:57)
[2016-12-20] MEDS ORDERED: LORazepam 2 MG/ML MDV IVPUSH ONE (22:57)
[2016-12-20] MEDS ORDERED: Ondansetron 4 MG/2 ML SDV IVPUSH ONE (22:57)
[2016-12-20] MEDS ORDERED: Famotidine 20 MG/2 ML SDV IVPUSH ONE (23:00)
--- NOTE | 2016-12-20 23:00 | EDM.PDOC ---
ED HPI GENERAL MEDICAL PROBLEM - General Chief Complaint: Drug or Alcohol Abuse Stated Complaint: UNK Time Seen by Provider: 12/20/16 22:55 - History of Present Illness INITIAL COMMENTS - FREE TEXT/NARRATIVE: HISTORY AND PHYSICAL: History of present illness: This patient is a 31-year-old male well-known to the ER staff and myself and was seen here just last evening for alcoholism and alcohol intoxication and evaluated and sent with the police for detox. He states that throughout the course of the day he did not have any nausea but did have intermittent episodes of shaking and he was not sure if it was detoxing from his alcohol or from the lorazepam that he takes regularly. The patient has a prescription for Ativan 1 mg by mouth twice a day when necessary from a physician in [facility] that he uses. He says he was not able to take his medications and he is not sure if that's contributing to what's happening. The patient ate and drank normally throughout the day and did not have a fever cough runny nose abdominal pain or vomiting but then this evening started having vomiting and shaking and was sent here for evaluation. The patient here complains of nausea and shakiness but he is awake alert and speaking clearly in the ED. His last drink would have been last evening. The patient has had a recent admission here from December 17 through December 19 and then after discharge from medical detox here he proceeded to go and drink again and then represented to me last evening. Patient has a history of a recent inpatient detox at [facility] after which he relapsed almost immediately. Review of systems: As per history of present illness and below otherwise all systems reviewed and negative. Past medical history: As per history of present illness and as reviewed below otherwise noncontributory. Surgical history: As per history of present illness and as reviewed below otherwise noncontributory. Social history: No reported history of drug or alcohol abuse. Family history: As per history of present illness and as reviewed below otherwise noncontributory. Physical exam: General: Well-developed overweight male who is nontoxic and speaking clearly in the ED without slurred speech. He has some visible tremulousness which seems somewhat exaggerated on my evaluation. He had some small emesis here which was bilious and nonbloody on my evaluation HEENT: Atraumatic, normocephalic, pupils reactive, negative for conjunctival pallor or scleral icterus, mucous membranes moist, throat clear, neck supple, nontender, trachea midline. Lungs: Clear to auscultation, breath sounds equal bilaterally, chest nontender. Heart: S1S2, regular rhythm slightly Tachycardic rate, negative for clicks, rubs , or JVD. Abdomen: Soft, nondistended, nontender. Negative for masses or hepatosplenomegaly. Negative for costovertebral tenderness. Pelvis: Stable nontender. Genitourinary: Deferred. Rectal: Deferred. Extremities: Atraumatic, negative for cords or calf pain. Neurovascular unremarkable. Neuro: Awake, alert, oriented. Cranial nerves II through XII unremarkable. Cerebellum unremarkable. Motor and sensory unremarkable throughout. Exam nonfocal. Patient seems to have localized tremulousness in his upper extremity bilaterally but it is not diffuse. When I asked him to stop he is able to control it. Diagnostics: EKG CBC CMP amylase lipase magnesium level INR alcohol level Therapeutics: IV O2 monitor IV fluids Zofran Ativan Pepcid magnesium Since arriving in the ER the patient has not had any nausea or vomiting and is in fact taking ice chips. He is not tremulous. The patient seems to think that this is more related to his inability to take his lorazepam which she does regularly and would like to be discharged. I agree at this point his labs are within normal limits and he is stable for discharge. I will advise him on reasons to return and give him Zofran via [employer]. Impression: Vomiting, history of alcohol abuse stable, possible early benzo withdrawal resolved Definitive disposition and diagnosis as appropriate pending reevaluation and review of above. - Related Data Allergies Allergy/AdvReac Type Severity Reaction Status Date / Time No Known Allergies Allergy Verified 12/20/16 00:22 Home Meds: Home Meds LORazepam 1 mg PO BID PRN 12/18/16 [History] Past Medical History - Past Health History Medical/Surgical History: Denies Medical/Surgical History HEENT History: Reports: None Cardiovascular History: Reports: Hypertension Respiratory History: Reports: None Gastrointestinal History: Reports: None Other Gastrointestinal History: states has liver failure Genitourinary History: Reports: None Musculoskeletal History: Reports: None Neurological History: Reports: Seizure, Other (See Below) Other Neuro History: alcohol withdrawl seizure in the past. Psychiatric History: Reports: Addiction Other Psychiatric History: etoh abuse, states " have gone through withdrawls in the past". when pt asked if this felt like withdrawls he stated "no". Endocrine/Metabolic History: Reports: Obesity/BMI 30+ Hematologic History: Reports: None Immunologic History: Reports: None Oncologic (Cancer) History: Reports: None Dermatologic History: Reports: None - Infectious Disease History Infectious Disease History: Reports: None - Past Surgical History HEENT Surgical History: Reports: None Cardiovascular Surgical History: Reports: None Respiratory Surgical History: Reports: None GI Surgical History: Reports: None Male Surgical History: Reports: None Neurological Surgical History: Reports: None Musculoskeletal Surgical History: Reports: None Oncologic Surgical History: Reports: None Social & Family History - Family History Family Medical History: Noncontributory Cardiac: Reports: [place] Neurological: Reports: TIA Psychiatric: Reports: Other (See Below) Other Psychiatric Family History: etoh abuse - Tobacco Use Smoking Status *Q: Never Smoker Second Hand Smoke Exposure: No - Caffeine Use Caffeine Use: Reports: None Caffeine Use Comment: pt unable to answer - Alcohol Use Days Per Week of Alcohol Use: 7 Number of Drinks Per Day: 8 Total Drinks Per Week: 56 - Recreational Drug Use Recreational Drug Use: No ED ROS GENERAL - Review of Systems Review Of Systems: ROS reveals no pertinent complaints other than HPI. ED EXAM, GENERAL - Physical Exam Exam: See Below (See dictation) Course - Vital Signs Last Recorded V/S: Last Vital Signs Temp 36.5 C 12/20/16 23:09 Pulse 120 H 12/20/16 23:09 Resp 28 H 12/20/16 23:09 BP 140/94 H 12/20/16 23:09 Pulse Ox 95 12/20/16 23:09 - Orders/Labs/Meds Orders: Active Orders 24 hr Category Date Time Status Cardiac Monitoring [RC] . DIRECTED Care 12/20/16 22:56 Active EKG Documentation Completion [RC] STAT Care 12/20/16 22:56 Active Oxygen Therapy, ED [RC] ASDIRECTED Care 12/20/16 22:56 Active Pulse Oximetry [RC] ASDIRECTED Care 12/20/16 22:56 Active Sodium Chloride 0.9% [Saline Flush] Med 12/20/16 22:57 Active 10 ml FLUSH ASDIRECTED PRN Sodium Chloride 0.9% [Saline Flush] Med 12/20/16 22:57 Active 2.5 ml FLUSH ASDIRECTED PRN Saline Lock Insert [OM.PC] Stat Oth 12/20/16 22:56 Ordered Medication Orders Sodium Chloride (Saline Flush) 10 ml FLUSH ASDIRECTED PRN PRN Reason: Keep Vein Open Last Admin: 12/20/16 23:23 Dose: 10 ml Sodium Chloride (Saline Flush) 2.5 ml FLUSH ASDIRECTED PRN PRN Reason: Keep Vein Open Last Admin: 12/20/16 23:22 Dose: 2.5 ml Labs: Laboratory Tests 12/20/16 12/20/16 12/20/16 Range/Units 23:08 23:08 23:08 WBC 9.39 (4.0-11.0) K/uL RBC 4.75 (4.50-5.90) M/uL Hgb 14.8 (13.0-17.0) g/dL Hct 43.2 (38.0-50.0) % MCV 90.9 (80.0-98.0) fL MCH 31.2 (27.0-32.0) pg MCHC 34.3 (31.0-37.0) g/dL RDW Std Deviation 42.1 (28.0-62.0) fl RDW Coeff of Jennifer 13 (11.0-15.0) % Plt Count 113 L (150-400) K/uL MPV 9.80 (7.40-12.00) fL Neut % (Auto) 74.7 (48.0-80.0) % Lymph % (Auto) 16.0 (16.0-40.0) % Ocean % (Auto) 7.1 (0.0-15.0) % Eos % (Auto) 1.7 (0.0-7.0) % Baso % (Auto) 0.5 (0.0-1.5) % Neut # (Auto) 7.0 H (1.4-5.7) K/uL Lymph # (Auto) 1.5 (0.6-2.4) K/uL Ocean # (Auto) 0.7 (0.0-0.8) K/uL Eos # (Auto) 0.2 (0.0-0.7) K/uL Baso # (Auto) 0.1 (0.0-0.1) K/uL Nucleated RBC % 0.0 /100WBC Nucleated RBCs # 0 K/uL INR 1.13 H (0.86-1.11) Sodium 137 (136-146) mmol/L Potassium 3.6 (3.5-5.1) mmol/L Chloride 105 (98-110) mmol/L Carbon Dioxide 16 L (21-31) mmol/L BUN 5 L (6.0-23.0) mg/dL Creatinine 0.8 (0.6-1.5) mg/dL Est Cr Clr Drug Dosing TNP Estimated GFR (MDRD) > 60.0 ml/min Glucose 70 (60-110) mg/dL Calcium 8.6 L (8.8-10.8) mg/dL Magnesium 1.1 L (1.5-2.3) mEq/L Total Bilirubin 1.1 (0.1-1.5) mg/dL AST 84 H (5-40) IU/L ALT 45 (8-54) IU/L Alkaline Phosphatase 86 (40-150) Total Protein 7.3 (6.0-8.0) g/dL Albumin 3.6 (3.5-5.0) g/dL Globulin 3.7 H (2.0-3.5) g/dL Albumin/Globulin Ratio 1.0 L (1.3-2.8) Amylase 23 (10-90) U/L Lipase 27 (7-80) U/L Ethyl Alcohol 17.3 mg/dL Meds: Medications Generic Name Dose Route Start Last Admin Trade Name Freq PRN Reason Stop Dose Admin Sodium Chloride 10 ml 12/20/16 22:57 12/20/16 23:23 Saline Flush FLUSH 10 ml ASDIRECTED PRN Administration Keep Vein Open Sodium Chloride 2.5 ml 12/20/16 22:57 12/20/16 23:22 Saline Flush FLUSH 2.5 ml ASDIRECTED PRN Administration Keep Vein Open Discontinued Medications Generic Name Dose Route Start Last Admin Trade Name Freq PRN Reason Stop Dose Admin Famotidine 20 mg 12/20/16 23:00 12/20/16 23:24 Pepcid IVPUSH 12/20/16 23:01 20 mg ONETIME ONE Administration Sodium Chloride 1,000 mls @ 999 mls/hr 12/20/16 22:57 12/20/16 23:23 Normal Saline IV 10/15/17 23:57 999 mls/hr STAT ONE Administration Lorazepam 1 mg 12/20/16 22:57 12/20/16 23:24 Ativan IVPUSH 12/20/16 22:58 1 mg ONETIME ONE Administration Ondansetron HCl 4 mg 12/20/16 22:57 12/20/16 23:23 Zofran IVPUSH 12/20/16 22:58 4 mg ONETIME ONE Administration Departure - Departure Time of Disposition: 00:34 Disposition: Home, Self-Care 01 Condition: Good Clinical Impression: Alcohol abuse, Benzodiazepine dependence Vomiting Qualifiers: Vomiting type: unspecified Vomiting Intractability: non-intractable Nausea presence: with nausea Qualified Code(s): R11.2 - Nausea with vomiting, unspecified - Discharge Information Forms: ED Department Discharge Additional Instructions: The following information is given to patients seen in the emergency department who are being discharged to home. This information is to outline your options for follow-up care. We provide all patients seen in our emergency department with a follow-up referral. The need for follow-up, as well as the timing and circumstances, are variable depending upon the specifics of your emergency department visit. If you don't have a primary care physician on staff, we will provide you with a referral. We always advise you to contact your personal physician following an emergency department visit to inform them of the circumstance of the visit and for follow-up with them and/or the need for any referrals to a consulting specialist. The emergency department will also refer you to a specialist when appropriate. This referral assures that you have the opportunity for followup care with a specialist. All of these measure are taken in an effort to provide you with optimal care, which includes your followup. Under all circumstances we always encourage you to contact your private physician who remains a resource for coordinating your care. When calling for followup care, please make the office aware that this follow-up is from your recent emergency room visit. If for any reason you are refused follow-up, please contact the [facility] emergency department at and ask to speak to the emergency department charge nurse. [facility] Primary care- [place] [address] Please use your lorazepam as you have prescribed and as needed. Please use Zofran you have been prescribed via [employer] as needed for nausea and vomiting. Please refrain from and stop drinking alcohol. Please follow-up as an outpatient basis for further care with your alcoholism. Return to ER as needed and as discussed. Please also connect with one of our clinic providers for further care and evaluation. - My Orders Last 24 Hours: My Active Orders 12/20/16 22:56 Cardiac Monitoring [RC] . DIRECTED EKG Documentation Completion [RC] STAT Oxygen Therapy, ED [RC] ASDIRECTED Pulse Oximetry [RC] ASDIRECTED Saline Lock Insert [OM.PC] Stat 12/20/16 22:57 Sodium Chloride 0.9% [Saline Flush] 10 ml FLUSH ASDIRECTED PRN Sodium Chloride 0.9% [Saline Flush] 2.5 ml FLUSH ASDIRECTED PRN - Assessment/Plan Last 24 Hours: My Active Orders 12/20/16 22:56 Cardiac Monitoring [RC] . DIRECTED EKG Documentation Completion [RC] STAT Oxygen Therapy, ED [RC] ASDIRECTED Pulse Oximetry [RC] ASDIRECTED Saline Lock Insert [OM.PC] Stat 12/20/16 22:57 Sodium Chloride 0.9% [Saline Flush] 10 ml FLUSH ASDIRECTED PRN Sodium Chloride 0.9% [Saline Flush] 2.5 ml FLUSH ASDIRECTED PRN
[2016-12-20 23:38] LABS: CHLORIDE,CL 105 mmol/L (98-110); SODIUM,NA 137 mmol/L (136-146)
[2016-12-21] MEDS ORDERED: Magnesium Oxide 400 MG Tab PO ONE (00:36)
[2016-12-21 00:48] VITALS: BP 150/96
== END 2016-12-21 00:53 | disposition home or self-care (01) ==
LOC: MW.ED 22:52
DX: F10.10 Alcohol abuse, uncomplicated (principal); F19.20 Other psychoactive substance dependence, uncomplicated; R11.2 Nausea with vomiting, unspecified; I10 Essential (primary) hypertension; E66.9 Obesity, unspecified; Y90.0 Blood alcohol level of less than 20 mg/100 ml
CPT/HCPCS: 36415; 80053; 82150; 83690; 83735; 85025; 85610; 93005; 96361; 96374; 96375; 99284; A9270; G0480; J2060; J2405; J7040; 99282

== ENCOUNTER 2016-12-25 20:35 | Inpatient (IN) | payer MEDICAID ==
[2016-12-25] MEDS ORDERED: MVI, Adult with Vitamin K 10 ML, Thiamine 100 MG, Folic Acid 1 MG in Sodium Chloride 0.... IV ONE ×4 (20:41)
--- NOTE | 2016-12-25 20:43 | EDM.PDOC ---
ED HPI GENERAL MEDICAL PROBLEM - General Chief Complaint: Drug or Alcohol Abuse Stated Complaint: INTOXICATED Time Seen by Provider: 12/25/16 20:42 Source of Information: Reports: Patient - History of Present Illness INITIAL COMMENTS - FREE TEXT/NARRATIVE: HISTORY AND PHYSICAL: History of present illness: [Patient arrives via EMS His friend called EMS as patient has been drinking, he has no specific complaints although he is hypoxic on arrival 88% on room air at rest He has no complaints of fever nausea vomiting chills sweats no chest pain shortness breath headache dizziness palpitation about a urine symptoms although he is clearly intoxicated with alcohol ] Review of systems: As per history of present illness and below otherwise all systems reviewed and negative. Past medical history: As per history of present illness and as reviewed below otherwise noncontributory. Surgical history: As per history of present illness and as reviewed below otherwise noncontributory. Social history: No reported history of drug or alcohol abuse. Family history: As per history of present illness and as reviewed below otherwise noncontributory. Physical exam: HEENT: Atraumatic, normocephalic, pupils reactive, negative for conjunctival pallor or scleral icterus, mucous membranes moist, throat clear, neck supple, nontender, trachea midline. Lungs: Clear to auscultation, breath sounds equal bilaterally, chest nontender. Heart: S1S2, regular, negative for clicks, rubs, or JVD. Abdomen: Soft, nondistended, nontender. Negative for masses or hepatosplenomegaly. Negative for costovertebral tenderness. Pelvis: Stable nontender. Genitourinary: Deferred. Rectal: Deferred. Extremities: Atraumatic, negative for cords or calf pain. Neurovascular unremarkable. Neuro: Awake, alert, oriented. Cranial nerves II through XII unremarkable. Cerebellum unremarkable. Motor and sensory unremarkable throughout. Exam nonfocal. Diagnostics: [lab as below chest 1 v ekg ] Therapeutics: [banana bag 1 L Followed by 1 L normal saline bolus then ns 125cc/hr ] Impression: [Hypoxia Hypotension Alcohol intoxication ]History of alcohol withdrawal Definitive disposition and diagnosis as appropriate pending reevaluation and review of above. Generalized Pain Score (Numeric/FACES): 10 - Related Data Allergies Allergy/AdvReac Type Severity Reaction Status Date / Time No Known Allergies Allergy Verified 12/25/16 20:47 Home Meds: Home Meds LORazepam 1 mg PO BID PRN 12/18/16 [History] Past Medical History - Past Health History Medical/Surgical History: Denies Medical/Surgical History HEENT History: Reports: None Cardiovascular History: Reports: Hypertension Respiratory History: Reports: None Gastrointestinal History: Reports: None Other Gastrointestinal History: states has liver failure Genitourinary History: Reports: None Musculoskeletal History: Reports: None Neurological History: Reports: Seizure, Other (See Below) Other Neuro History: alcohol withdrawl seizure in the past. Psychiatric History: Reports: Addiction Other Psychiatric History: etoh abuse, states " have gone through withdrawls in the past". when pt asked if this felt like withdrawls he stated "no". Endocrine/Metabolic History: Reports: Obesity/BMI 30+ Hematologic History: Reports: None Immunologic History: Reports: None Oncologic (Cancer) History: Reports: None Dermatologic History: Reports: None - Infectious Disease History Infectious Disease History: Reports: None - Past Surgical History HEENT Surgical History: Reports: None Cardiovascular Surgical History: Reports: None Respiratory Surgical History: Reports: None GI Surgical History: Reports: None Male Surgical History: Reports: None Neurological Surgical History: Reports: None Musculoskeletal Surgical History: Reports: None Oncologic Surgical History: Reports: None Social & Family History - Family History Family Medical History: Noncontributory Cardiac: Reports: [place] Neurological: Reports: TIA Psychiatric: Reports: Other (See Below) Other Psychiatric Family History: etoh abuse - Tobacco Use Smoking Status *Q: Never Smoker Second Hand Smoke Exposure: No - Caffeine Use Caffeine Use: Reports: None Caffeine Use Comment: pt unable to answer - Alcohol Use Days Per Week of Alcohol Use: 7 Number of Drinks Per Day: 8 Total Drinks Per Week: 56 - Recreational Drug Use Recreational Drug Use: No ED ROS GENERAL - Review of Systems Review Of Systems: ROS reveals no pertinent complaints other than HPI. ED EXAM, GENERAL - Physical Exam Exam: See Below Course - Vital Signs Last Recorded V/S: Last Vital Signs Temp 36.4 C 12/25/16 22:29 Pulse 95 12/25/16 22:29 Resp 20 12/25/16 22:29 BP 99/44 L 12/25/16 22:29 Pulse Ox 95 12/25/16 22:29 - Orders/Labs/Meds Orders: Active Orders 24 hr Category Date Time Status EKG Documentation Completion [RC] STAT Care 12/25/16 20:45 Active Chest 1V Frontal [CR] Stat Exams 12/25/16 20:45 Taken DRUG SCREEN, URINE [URCHEM] Stat Lab 12/25/16 20:43 Uncollected UA W/MICROSCOPIC [URIN] Stat Lab 12/25/16 20:41 Uncollected Sodium Chloride 0.9% [Normal Saline] 1,000 ml Med 12/25/16 22:00 Active IV STAT Sodium Chloride 0.9% [Normal Saline] 1,000 ml Med 12/25/16 22:28 Active IV STAT Medication Orders Sodium Chloride (Normal Saline) 1,000 mls @ 125 mls/hr IV STAT TAMMIE Sodium Chloride (Normal Saline) 1,000 mls @ 999 mls/hr IV STAT ONE Stop: 12/25/16 23:28 Last Admin: 12/25/16 22:32 Dose: 999 mls/hr Labs: Laboratory Tests 12/25/16 12/25/16 12/25/16 Range/Units 20:51 20:51 20:51 WBC 6.86 (4.0-11.0) K/uL RBC 4.95 (4.50-5.90) M/uL Hgb 15.4 (13.0-17.0) g/dL Hct 45.4 (38.0-50.0) % MCV 91.7 (80.0-98.0) fL MCH 31.1 (27.0-32.0) pg MCHC 33.9 (31.0-37.0) g/dL RDW Std Deviation 45.0 (28.0-62.0) fl RDW Coeff of Jennifer 14 (11.0-15.0) % Plt Count 138 L (150-400) K/uL MPV 9.50 (7.40-12.00) fL Neut % (Auto) 44.7 L (48.0-80.0) % Lymph % (Auto) 35.9 (16.0-40.0) % [place] % (Auto) 13.8 (0.0-15.0) % Eos % (Auto) 5.0 (0.0-7.0) % Baso % (Auto) 0.6 (0.0-1.5) % Neut # (Auto) 3.1 (1.4-5.7) K/uL Lymph # (Auto) 2.5 H (0.6-2.4) K/uL [place] # (Auto) 1.0 H (0.0-0.8) K/uL Eos # (Auto) 0.3 (0.0-0.7) K/uL Baso # (Auto) 0.0 (0.0-0.1) K/uL Nucleated RBC % 0.0 /100WBC Nucleated RBCs # 0 K/uL Sodium 145 (136-146) mmol/L Potassium 3.5 (3.5-5.1) mmol/L Chloride 114 H (98-110) mmol/L Carbon Dioxide 19 L (21-31) mmol/L BUN 5 L (6.0-23.0) mg/dL Creatinine 0.7 (0.6-1.5) mg/dL Est Cr Clr Drug Dosing 150.10 mL/min Estimated GFR (MDRD) > 60.0 ml/min Glucose 103 (60-110) mg/dL Calcium 8.3 L (8.8-10.8) mg/dL Total Bilirubin 0.7 (0.1-1.5) mg/dL AST 156 H (5-40) IU/L ALT 91 H (8-54) IU/L Alkaline Phosphatase 82 (40-150) Troponin I < 0.10 (0.0-0.29) NG/ML B-Natriuretic Peptide < 15 (<100) PG/ML Total Protein 7.4 (6.0-8.0) g/dL Albumin 3.6 (3.5-5.0) g/dL Globulin 3.8 H (2.0-3.5) g/dL Albumin/Globulin Ratio 1.0 L (1.3-2.8) Amylase 26 (10-90) U/L Lipase 36 (7-80) U/L Ethyl Alcohol 428.3 mg/dL Meds: Medications Generic Name Dose Route Start Last Admin Trade Name Freq PRN Reason Stop Dose Admin Sodium Chloride 1,000 mls @ 125 mls/hr 12/25/16 22:00 Normal Saline IV STAT TAMMIE Sodium Chloride 1,000 mls @ 999 mls/hr 12/25/16 22:28 12/25/16 22:32 Normal Saline IV 12/25/16 23:28 999 mls/hr STAT ONE Administration Discontinued Medications Generic Name Dose Route Start Last Admin Trade Name Matilde PRN Reason Stop Dose Admin Multivitamins/Minerals 10 ml/ 1,011.2 mls @ 999 mls/hr 12/25/16 20:41 21:23 Thiamine HCl 100 mg/ Folic IV 12/25/16 21:41 999 mls/hr Acid 1 mg/ Sodium Chloride ONETIME ONE Administration Ondansetron HCl 8 mg 12/25/16 21:00 12/25/16 21:23 Zofran IVPUSH 12/25/16 21:01 8 mg ONETIME ONE Administration Pantoprazole Sodium 80 mg 12/25/16 21:00 12/25/16 21:23 Protonix Iv IVPUSH 12/25/16 21:01 80 mg .BOLUS ONE Administration Departure - Departure Time of Disposition: 22:33 Disposition: Admitted As Inpatient 64 Condition: Fair Clinical Impression: Hypoxia, Hypotension Alcohol intoxication Qualifiers: Complication of substance-induced condition: uncomplicated Qualified Code(s): F10.920 - Alcohol use, unspecified with intoxication, uncomplicated - Discharge Information Referrals: PCP,None [Primary Care Provider] - Forms: ED Department Discharge - My Orders Last 24 Hours: My Active Orders 12/25/16 20:41 UA W/MICROSCOPIC [URIN] Stat 12/25/16 20:43 DRUG SCREEN, URINE [URCHEM] Stat 12/25/16 20:45 EKG Documentation Completion [RC] STAT Chest 1V Frontal [CR] Stat 12/25/16 22:00 Sodium Chloride 0.9% [Normal Saline] 1,000 ml IV STAT 12/25/16 22:28 Sodium Chloride 0.9% [Normal Saline] 1,000 ml IV STAT - Assessment/Plan Last 24 Hours: My Active Orders 12/25/16 20:41 UA W/MICROSCOPIC [URIN] Stat 12/25/16 20:43 DRUG SCREEN, URINE [URCHEM] Stat 12/25/16 20:45 EKG Documentation Completion [RC] STAT Chest 1V Frontal [CR] Stat 12/25/16 22:00 Sodium Chloride 0.9% [Normal Saline] 1,000 ml IV STAT 12/25/16 22:28 Sodium Chloride 0.9% [Normal Saline] 1,000 ml IV STAT
[2016-12-25] MEDS ORDERED: Ondansetron 4 MG/2 ML SDV IVPUSH ONE (21:00)
[2016-12-25] MEDS ORDERED: Pantoprazole 40 MG Vial IVPUSH ONE (21:00)
[2016-12-25 21:24] LABS: CHLORIDE,CL 114 mmol/L (98-110); SODIUM,NA 145 mmol/L (136-146)
[2016-12-25] MEDS ORDERED: Sodium Chloride 0.9% 1,000 ML IV ONE (22:28)
[2016-12-25] MEDS: Sodium Chloride 0.9% 1,000 ML IV SCH (23:25)
[2016-12-25] MEDS ORDERED: Thiamine 100 MG Tab PO SCH (23:45)
--- NOTE | 2016-12-25 23:52 | PCM.HP ---
H&P History of Present Illness - General Admit Problem/Dx: Admission Diagnosis/Problem Admission Diagnosis/Problem Hypoxia - History of Present Illness Initial Comments - Free Text/Narative: 31 yo male with pmh of alcohol abuse and dependence with multiple admissions for alcohol intoxication. He was brought to the ED by EMS after friend called. He reports drinking several shots of alcohol today. Reportedly the friend told ED he drank a half a bottle of liquor. Patient is again requesting a refill of his prescription of ativan as well as detox. Generalized Pain Score (Numeric/FACES): 5 - Related Data Allergies/Adverse Reactions: Allergies Allergy/AdvReac Type Severity Reaction Status Date / Time No Known Allergies Allergy Verified 12/25/16 20:47 Past Medical History - Past Health History Medical/Surgical History: Denies Medical/Surgical History HEENT History: Reports: None Cardiovascular History: Reports: Hypertension Respiratory History: Reports: None Gastrointestinal History: Reports: None Other Gastrointestinal History: states has liver failure Genitourinary History: Reports: None Musculoskeletal History: Reports: None Neurological History: Reports: Seizure, Other (See Below) Other Neuro History: alcohol withdrawl seizure in the past. Psychiatric History: Reports: Addiction Other Psychiatric History: etoh abuse, states " have gone through withdrawls in the past". when pt asked if this felt like withdrawls he stated "no". Endocrine/Metabolic History: Reports: Obesity/BMI 30+ Hematologic History: Reports: None Immunologic History: Reports: None Oncologic (Cancer) History: Reports: None Dermatologic History: Reports: None - Infectious Disease History Infectious Disease History: Reports: None - Past Surgical History HEENT Surgical History: Reports: None Cardiovascular Surgical History: Reports: None Respiratory Surgical History: Reports: None GI Surgical History: Reports: None Male Surgical History: Reports: None Neurological Surgical History: Reports: None Musculoskeletal Surgical History: Reports: None Oncologic Surgical History: Reports: None Social & Family History - Family History Family Medical History: Noncontributory Cardiac: Reports: [place] Neurological: Reports: TIA Psychiatric: Reports: Other (See Below) Other Psychiatric Family History: etoh abuse - Tobacco Use Smoking Status *Q: Never Smoker Second Hand Smoke Exposure: No - Caffeine Use Caffeine Use: Reports: None Caffeine Use Comment: pt unable to answer - Alcohol Use Days Per Week of Alcohol Use: 7 Number of Drinks Per Day: 8 Total Drinks Per Week: 56 - Recreational Drug Use Recreational Drug Use: No H&P Review of Systems - Review of Systems: Review Of Systems: ROS reveals no pertinent complaints other than HPI. Exam - Exam Exam: See Below - Vital Signs Vital Signs: Last Vital Signs Temp 36.3 C 12/25/16 23:16 Pulse 89 12/25/16 22:51 Resp 15 12/25/16 23:16 BP 129/83 12/25/16 23:16 Pulse Ox 93 L 12/25/16 23:16 Weight: 108.3 kg - Exam General: Other (intoxicated) HEENT: Mucosa Moist & [place] Lungs: Clear to Auscultation, Normal Respiratory Effort Cardiovascular: Regular Rate, Regular Rhythm GI/Abdominal Exam: Soft, Non-Tender, No Distention Extremities: No Pedal Edema Skin: Warm, Dry, Intact Neurological: No: Focal Deficit - Patient Data Result Diagrams: 12/26/16 05:12 12/26/16 05:12 *Q Meaningful Use (ADM) - VTE *Q VTE Criteria *Q: - Stroke *Q Stroke Criteria *Q: - AMI *Q AMI Criteria *Q: Problem List Initiated/Reviewed/Updated: Yes Orders Last 24hrs: Active Orders 24 hr Category Date Time Status CULTURE BLOOD [BC] Stat Lab 12/25/16 22:46 Received CULTURE BLOOD [BC] Stat Lab 12/25/16 22:57 Received Folic Acid Med 12/26/16 09:00 Ordered 1 mg PO DAILY LORazepam [Ativan] Med 12/25/16 23:45 Ordered See Protocol IVPUSH Q4H PRN Thiamine [Vitamin B-1] Med 12/25/16 23:45 Ordered 100 mg PO BEDTIME Blood Culture x2 Reflex Set [OM.PC] Stat Oth 12/25/16 22:39 Ordered Medication Orders Folic Acid (Folic Acid) 1 mg PO DAILY TAMMIE Sodium Chloride (Normal Saline) 1,000 mls @ 125 mls/hr IV STAT TAMMIE Last Admin: 12/25/16 23:25 Dose: 125 mls/hr Lorazepam (Ativan) 0 mg IVPUSH Q4H PRN; Protocol PRN Reason: Agitation Thiamine HCl (Vitamin B-1) 100 mg PO BEDTIME TAMMIE Assessment/Plan Comment:: 31 yo male with history of alcohol abuse and dependence who presents with acute alcohol intoxication. We will place on CIWA protocol with prn ativan, folic acid and thiamin. In the morning will reassess patient's commitment to detox.
[2016-12-26 05:45] LABS: CHLORIDE,CL 117 mmol/L (98-110); SODIUM,NA 146 mmol/L (136-146)
--- NOTE | 2016-12-26 06:22 | PCM.PN ---
- Review of Systems Systems Review Comment:: patient reports anxiety, feels like anxiety attack. - Patient Data Vitals - Most Recent: Last Vital Signs Temp 36.6 C 12/26/16 04:00 Pulse 73 12/26/16 00:00 Resp 19 12/26/16 05:00 BP 100/52 L 12/26/16 05:00 Pulse Ox 92 L 12/26/16 05:00 Weight - Most Recent: 108.3 kg I&O - Last 24 Hours: Intake & Output 12/25/16 12/25/16 12/26/16 14:59 22:59 06:59 Intake Total 2449 Output Total 550 Balance 1899 Lab Results Last 24 Hours: Laboratory Results - last 24 hr 12/26/16 12/26/16 12/26/16 Range/Units 00:30 00:30 05:12 WBC 5.07 (4.0-11.0) K/uL RBC 4.35 L (4.50-5.90) M/uL Hgb 13.3 (13.0-17.0) g/dL Hct 40.6 (38.0-50.0) % MCV 93.3 (80.0-98.0) fL MCH 30.6 (27.0-32.0) pg MCHC 32.8 (31.0-37.0) g/dL RDW Std Deviation 47.2 (28.0-62.0) fl RDW Coeff of Jennifer 14 (11.0-15.0) % Plt Count 119 L (150-400) K/uL MPV 9.80 (7.40-12.00) fL Neut % (Auto) 38.7 L (48.0-80.0) % Lymph % (Auto) 43.2 H (16.0-40.0) % [place] % (Auto) 12.0 (0.0-15.0) % Eos % (Auto) 5.1 (0.0-7.0) % Baso % (Auto) 1.0 (0.0-1.5) % Neut # (Auto) 2.0 (1.4-5.7) K/uL Lymph # (Auto) 2.2 (0.6-2.4) K/uL [place] # (Auto) 0.6 (0.0-0.8) K/uL Eos # (Auto) 0.3 (0.0-0.7) K/uL Baso # (Auto) 0.1 (0.0-0.1) K/uL Nucleated RBC % 0.0 /100WBC Nucleated RBCs # 0 K/uL Sodium (136-146) mmol/L Potassium (3.5-5.1) mmol/L Chloride (98-110) mmol/L Carbon Dioxide (21-31) mmol/L BUN (6.0-23.0) mg/dL Creatinine (0.6-1.5) mg/dL Est Cr Clr Drug Dosing mL/min Estimated GFR (MDRD) ml/min Glucose (60-110) mg/dL Calcium (8.8-10.8) mg/dL Total Bilirubin (0.1-1.5) mg/dL AST (5-40) IU/L ALT (8-54) IU/L Alkaline Phosphatase (40-150) Total Protein (6.0-8.0) g/dL Albumin (3.5-5.0) g/dL Globulin (2.0-3.5) g/dL Albumin/Globulin Ratio (1.3-2.8) Urine Color YELLOW Urine Appearance CLEAR Urine pH 6.0 (5.0-8.0) Ur Specific [place] 1.010 (1.001-1.035) Urine Protein NEGATIVE (NEGATIVE) mg/dL Urine Glucose (UA) NEGATIVE (NEGATIVE) mg/dL Urine Ketones TRACE H (NEGATIVE) mg/dL Urine Occult Blood NEGATIVE (NEGATIVE) Urine Nitrite NEGATIVE (NEGATIVE) Urine Bilirubin NEGATIVE (NEGATIVE) Urine Urobilinogen 0.2 (<2.0) EU/dL Ur Leukocyte Esterase NEGATIVE (NEGATIVE) Urine RBC 0-1 (0-2/HPF) Urine WBC 0-1 (0-5/HPF) Ur Epithelial Cells RARE (NONE-FEW) Urine Bacteria RARE (NEGATIVE) Urine Mucus LIGHT (NONE-MOD) Urine Opiates Screen NEGATIVE (NEGATIVE) Ur Oxycodone Screen NEGATIVE (NEGATIVE) Urine Methadone Screen NEGATIVE (NEGATIVE) Ur Barbiturates Screen NEGATIVE (NEGATIVE) Ur Phencyclidine Scrn NEGATIVE (NEGATIVE) Ur Amphetamine Screen NEGATIVE (NEGATIVE) U Methamphetamines Scrn NEGATIVE (NEGATIVE) U Benzodiazepines Scrn NEGATIVE (NEGATIVE) U Cocaine Metab Screen NEGATIVE (NEGATIVE) U Marijuana (THC) Screen NEGATIVE (NEGATIVE) 12/26/16 Range/Units 05:12 WBC (4.0-11.0) K/uL RBC (4.50-5.90) M/uL Hgb (13.0-17.0) g/dL Hct (38.0-50.0) % MCV (80.0-98.0) fL MCH (27.0-32.0) pg MCHC (31.0-37.0) g/dL RDW Std Deviation (28.0-62.0) fl RDW Coeff of Jennifer (11.0-15.0) % Plt Count (150-400) K/uL MPV (7.40-12.00) fL Neut % (Auto) (48.0-80.0) % Lymph % (Auto) (16.0-40.0) % [place] % (Auto) (0.0-15.0) % Eos % (Auto) (0.0-7.0) % Baso % (Auto) (0.0-1.5) % Neut # (Auto) (1.4-5.7) K/uL Lymph # (Auto) (0.6-2.4) K/uL [place] # (Auto) (0.0-0.8) K/uL Eos # (Auto) (0.0-0.7) K/uL Baso # (Auto) (0.0-0.1) K/uL Nucleated RBC % /100WBC Nucleated RBCs # K/uL Sodium 146 (136-146) mmol/L Potassium 3.9 (3.5-5.1) mmol/L Chloride 117 H (98-110) mmol/L Carbon Dioxide 19 L (21-31) mmol/L BUN 5 L (6.0-23.0) mg/dL Creatinine 0.7 (0.6-1.5) mg/dL Est Cr Clr Drug Dosing 150.10 mL/min Estimated GFR (MDRD) > 60.0 ml/min Glucose 78 (60-110) mg/dL Calcium 7.3 L (8.8-10.8) mg/dL Total Bilirubin 0.6 (0.1-1.5) mg/dL AST 138 H (5-40) IU/L ALT 81 H (8-54) IU/L Alkaline Phosphatase 62 (40-150) Total Protein 5.8 L (6.0-8.0) g/dL Albumin 3.0 L (3.5-5.0) g/dL Globulin 2.8 (2.0-3.5) g/dL Albumin/Globulin Ratio 1.1 L (1.3-2.8) Urine Color Urine Appearance Urine pH (5.0-8.0) Ur Specific [place] (1.001-1.035) Urine Protein (NEGATIVE) mg/dL Urine Glucose (UA) (NEGATIVE) mg/dL Urine Ketones (NEGATIVE) mg/dL Urine Occult Blood (NEGATIVE) Urine Nitrite (NEGATIVE) Urine Bilirubin (NEGATIVE) Urine Urobilinogen (<2.0) EU/dL Ur Leukocyte Esterase (NEGATIVE) Urine RBC (0-2/HPF) Urine WBC (0-5/HPF) Ur Epithelial Cells (NONE-FEW) Urine Bacteria (NEGATIVE) Urine Mucus (NONE-MOD) Urine Opiates Screen (NEGATIVE) Ur Oxycodone Screen (NEGATIVE) Urine Methadone Screen (NEGATIVE) Ur Barbiturates Screen (NEGATIVE) Ur Phencyclidine Scrn (NEGATIVE) Ur Amphetamine Screen (NEGATIVE) U Methamphetamines Scrn (NEGATIVE) U Benzodiazepines Scrn (NEGATIVE) U Cocaine Metab Screen (NEGATIVE) U Marijuana (THC) Screen (NEGATIVE) Med Orders - Current: Current Medications Folic Acid (Folic Acid) 1 mg PO DAILY TAMMIE Sodium Chloride (Normal Saline) 1,000 mls @ 125 mls/hr IV STAT TAMMIE Last Admin: 12/25/16 23:25 Dose: 125 mls/hr Lorazepam (Ativan) 0 mg IVPUSH Q4H PRN; Protocol PRN Reason: Agitation Last Admin: 12/26/16 00:00 Dose: 2 mg Thiamine HCl (Vitamin B-1) 100 mg PO BEDTIME TAMMIE Last Admin: 12/25/16 23:59 Dose: Not Given Discontinued Medications Multivitamins/Minerals 10 ml/Thiamine HCl 100 mg/ Folic Acid 1 mg/ Sodium Chloride 1,011.2 mls @ 999 mls/hr IV ONETIME ONE Stop: 12/25/16 21:41 Last Admin: 12/25/16 21:23 Dose: 999 mls/hr Sodium Chloride (Normal Saline) 1,000 mls @ 999 mls/hr IV STAT ONE Stop: 12/25/16 23:28 Last Admin: 12/25/16 22:32 Dose: 999 mls/hr Ondansetron HCl (Zofran) 8 mg IVPUSH ONETIME ONE Stop: 12/25/16 21:01 Last Admin: 12/25/16 21:23 Dose: 8 mg Pantoprazole Sodium (Protonix Iv) 80 mg IVPUSH .BOLUS ONE Stop: 12/25/16 21:01 Last Admin: 12/25/16 21:23 Dose: 80 mg - Exam General: Alert, Oriented Neck: Supple Cardiovascular: Regular Rate, Regular Rhythm GI/Abdominal Exam: Soft, Non-Tender, No Distention Extremities: No Pedal Edema Skin: Warm, Dry, Intact - Problem List Review Problem List Initiated/Reviewed/Updated: Yes - My Orders Last 24 Hours: My Active Orders 12/25/16 23:45 LORazepam [Ativan] See Protocol IVPUSH Q4H PRN Thiamine [Vitamin B-1] 100 mg PO BEDTIME 12/25/16 23:52 Oxygen Therapy [RC] PRN VTE/DVT Education [RC] PER UNIT ROUTINE Vital Signs [RC] Q1H Sequential Compression Device [OM.PC] Per Unit Routine Resuscitation Status Routine 12/25/16 23:53 Antiembolic Devices [RC] PER UNIT ROUTINE 12/25/16 Breakfast Regular Diet [DIET] 12/26/16 09:00 Folic Acid 1 mg PO DAILY - Plan Plan:: 31 yo male with history of alcohol abuse and dependence who presents with acute alcohol intoxication. Patient is on CIWA protocol with prn ativan, folic acid and thiamin. He wants detox and states he will be compliant but when I explained that inpatient detox will likely take several days he was hesitant to agree to stay that long.
[2016-12-26] MEDS: LORazepam 2 MG/ML MDV IVPUSH PRN ×2 (06:23)
[2016-12-26] MEDS: Sodium Chloride 0.9% 1,000 ML IV SCH (07:22)
--- NOTE | 2016-12-26 07:49 | PCM.DCSUM1 ---
Discharge Summary - Discharge Data Discharge Date: 12/26/16 Discharge Disposition: Home, Self-Care 01 Condition: Good - Patient Summary/Data Hospital Course: 31 yo male who has had multiple admission for alcohol intoxication who presented with acute alcohol intoxication. He was monitored overnight and this morning patient is requesting discharge. I offered inpatient detox and explained that the likelihood was small of him having successful weening off alcohol as outpatient. I instructed him on the dangers of taking Ativan and alcohol which could lead to overdose and . Patient refused further hospitalization. He was discharged home to have follow up at [facility]. - Discharge Plan Forms: ED Department Discharge Referrals: PCP,None [Primary Care Provider] - - Patient Data Vitals - Most Recent: Last Vital Signs Temp 36.6 C 12/26/16 04:00 Pulse 73 12/26/16 00:00 Resp 15 12/26/16 07:00 BP 124/82 12/26/16 07:00 Pulse Ox 93 L 12/26/16 07:00 Weight - Most Recent: 108.3 kg I&O - Last 24 hours: Intake & Output 12/25/16 12/26/16 12/26/16 22:59 06:59 14:59 Intake Total 2449 Output Total 550 Balance 1899 Lab Results - Last 24 hrs: Laboratory Results - last 24 hr 12/26/16 12/26/16 12/26/16 Range/Units 00:30 00:30 05:12 WBC 5.07 (4.0-11.0) K/uL RBC 4.35 L (4.50-5.90) M/uL Hgb 13.3 (13.0-17.0) g/dL Hct 40.6 (38.0-50.0) % MCV 93.3 (80.0-98.0) fL MCH 30.6 (27.0-32.0) pg MCHC 32.8 (31.0-37.0) g/dL RDW Std Deviation 47.2 (28.0-62.0) fl RDW Coeff of Jennifer 14 (11.0-15.0) % Plt Count 119 L (150-400) K/uL MPV 9.80 (7.40-12.00) fL Neut % (Auto) 38.7 L (48.0-80.0) % Lymph % (Auto) 43.2 H (16.0-40.0) % Hyde % (Auto) 12.0 (0.0-15.0) % Eos % (Auto) 5.1 (0.0-7.0) % Baso % (Auto) 1.0 (0.0-1.5) % Neut # (Auto) 2.0 (1.4-5.7) K/uL Lymph # (Auto) 2.2 (0.6-2.4) K/uL Hyde # (Auto) 0.6 (0.0-0.8) K/uL Eos # (Auto) 0.3 (0.0-0.7) K/uL Baso # (Auto) 0.1 (0.0-0.1) K/uL Nucleated RBC % 0.0 /100WBC Nucleated RBCs # 0 K/uL Sodium (136-146) mmol/L Potassium (3.5-5.1) mmol/L Chloride (98-110) mmol/L Carbon Dioxide (21-31) mmol/L BUN (6.0-23.0) mg/dL Creatinine (0.6-1.5) mg/dL Est Cr Clr Drug Dosing mL/min Estimated GFR (MDRD) ml/min Glucose (60-110) mg/dL Calcium (8.8-10.8) mg/dL Total Bilirubin (0.1-1.5) mg/dL AST (5-40) IU/L ALT (8-54) IU/L Alkaline Phosphatase (40-150) Total Protein (6.0-8.0) g/dL Albumin (3.5-5.0) g/dL Globulin (2.0-3.5) g/dL Albumin/Globulin Ratio (1.3-2.8) Urine Color YELLOW Urine Appearance CLEAR Urine pH 6.0 (5.0-8.0) Ur Specific [place] 1.010 (1.001-1.035) Urine Protein NEGATIVE (NEGATIVE) mg/dL Urine Glucose (UA) NEGATIVE (NEGATIVE) mg/dL Urine Ketones TRACE H (NEGATIVE) mg/dL Urine Occult Blood NEGATIVE (NEGATIVE) Urine Nitrite NEGATIVE (NEGATIVE) Urine Bilirubin NEGATIVE (NEGATIVE) Urine Urobilinogen 0.2 (<2.0) EU/dL Ur Leukocyte Esterase NEGATIVE (NEGATIVE) Urine RBC 0-1 (0-2/HPF) Urine WBC 0-1 (0-5/HPF) Ur Epithelial Cells RARE (NONE-FEW) Urine Bacteria RARE (NEGATIVE) Urine Mucus LIGHT (NONE-MOD) Urine Opiates Screen NEGATIVE (NEGATIVE) Ur Oxycodone Screen NEGATIVE (NEGATIVE) Urine Methadone Screen NEGATIVE (NEGATIVE) Ur Barbiturates Screen NEGATIVE (NEGATIVE) Ur Phencyclidine Scrn NEGATIVE (NEGATIVE) Ur Amphetamine Screen NEGATIVE (NEGATIVE) U Methamphetamines Scrn NEGATIVE (NEGATIVE) U Benzodiazepines Scrn NEGATIVE (NEGATIVE) U Cocaine Metab Screen NEGATIVE (NEGATIVE) U Marijuana (THC) Screen NEGATIVE (NEGATIVE) 12/26/16 Range/Units 05:12 WBC (4.0-11.0) K/uL RBC (4.50-5.90) M/uL Hgb (13.0-17.0) g/dL Hct (38.0-50.0) % MCV (80.0-98.0) fL MCH (27.0-32.0) pg MCHC (31.0-37.0) g/dL RDW Std Deviation (28.0-62.0) fl RDW Coeff of Jennifer (11.0-15.0) % Plt Count (150-400) K/uL MPV (7.40-12.00) fL Neut % (Auto) (48.0-80.0) % Lymph % (Auto) (16.0-40.0) % Hyde % (Auto) (0.0-15.0) % Eos % (Auto) (0.0-7.0) % Baso % (Auto) (0.0-1.5) % Neut # (Auto) (1.4-5.7) K/uL Lymph # (Auto) (0.6-2.4) K/uL Hyde # (Auto) (0.0-0.8) K/uL Eos # (Auto) (0.0-0.7) K/uL Baso # (Auto) (0.0-0.1) K/uL Nucleated RBC % /100WBC Nucleated RBCs # K/uL Sodium 146 (136-146) mmol/L Potassium 3.9 (3.5-5.1) mmol/L Chloride 117 H (98-110) mmol/L Carbon Dioxide 19 L (21-31) mmol/L BUN 5 L (6.0-23.0) mg/dL Creatinine 0.7 (0.6-1.5) mg/dL Est Cr Clr Drug Dosing 150.10 mL/min Estimated GFR (MDRD) > 60.0 ml/min Glucose 78 (60-110) mg/dL Calcium 7.3 L (8.8-10.8) mg/dL Total Bilirubin 0.6 (0.1-1.5) mg/dL AST 138 H (5-40) IU/L ALT 81 H (8-54) IU/L Alkaline Phosphatase 62 (40-150) Total Protein 5.8 L (6.0-8.0) g/dL Albumin 3.0 L (3.5-5.0) g/dL Globulin 2.8 (2.0-3.5) g/dL Albumin/Globulin Ratio 1.1 L (1.3-2.8) Urine Color Urine Appearance Urine pH (5.0-8.0) Ur Specific [place] (1.001-1.035) Urine Protein (NEGATIVE) mg/dL Urine Glucose (UA) (NEGATIVE) mg/dL Urine Ketones (NEGATIVE) mg/dL Urine Occult Blood (NEGATIVE) Urine Nitrite (NEGATIVE) Urine Bilirubin (NEGATIVE) Urine Urobilinogen (<2.0) EU/dL Ur Leukocyte Esterase (NEGATIVE) Urine RBC (0-2/HPF) Urine WBC (0-5/HPF) Ur Epithelial Cells (NONE-FEW) Urine Bacteria (NEGATIVE) Urine Mucus (NONE-MOD) Urine Opiates Screen (NEGATIVE) Ur Oxycodone Screen (NEGATIVE) Urine Methadone Screen (NEGATIVE) Ur Barbiturates Screen (NEGATIVE) Ur Phencyclidine Scrn (NEGATIVE) Ur Amphetamine Screen (NEGATIVE) U Methamphetamines Scrn (NEGATIVE) U Benzodiazepines Scrn (NEGATIVE) U Cocaine Metab Screen (NEGATIVE) U Marijuana (THC) Screen (NEGATIVE) Med Orders - Current: Current Medications Folic Acid (Folic Acid) 1 mg PO DAILY TAMMIE Sodium Chloride (Normal Saline) 1,000 mls @ 125 mls/hr IV STAT TAMMIE Last Admin: 12/26/16 07:22 Dose: 125 mls/hr Lorazepam (Ativan) 0 mg IVPUSH Q4H PRN; Protocol PRN Reason: Agitation Last Admin: 12/26/16 06:23 Dose: 1 mg Thiamine HCl (Vitamin B-1) 100 mg PO BEDTIME TAMMIE Last Admin: 12/25/16 23:59 Dose: Not Given Discontinued Medications Multivitamins/Minerals 10 ml/Thiamine HCl 100 mg/ Folic Acid 1 mg/ Sodium Chloride 1,011.2 mls @ 999 mls/hr IV ONETIME ONE Stop: 12/25/16 21:41 Last Admin: 12/25/16 21:23 Dose: 999 mls/hr Sodium Chloride (Normal Saline) 1,000 mls @ 999 mls/hr IV STAT ONE Stop: 12/25/16 23:28 Last Admin: 12/25/16 22:32 Dose: 999 mls/hr Ondansetron HCl (Zofran) 8 mg IVPUSH ONETIME ONE Stop: 12/25/16 21:01 Last Admin: 12/25/16 21:23 Dose: 8 mg Pantoprazole Sodium (Protonix Iv) 80 mg IVPUSH .BOLUS ONE Stop: 12/25/16 21:01 Last Admin: 12/25/16 21:23 Dose: 80 mg *Q Meaningful Use (DIS) - VTE *Q VTE Criteria *Q: - Stroke *Q Stroke Criteria *Q: - AMI *Q AMI Criteria *Q:
[2016-12-26] MEDS ORDERED: Folic Acid 1 MG Tab PO SCH (09:00)
[2016-12-26 09:02] VITALS: BP 131/74
--- NOTE | 2016-12-27 18:39 | CR ---
EXAM DATE: 12/25/16 PATIENT'S AGE: 31 Patient: ISAAK HARDWICK Facility: [place], [place] Site . Site : 1985 Study: XRay Chest [id number] 9:45:44 PM Ordering Physician: Elba Khan Final Report: INDICATION: ETOH intoxication. Single AP view Findings: The lungs are clear. Pulmonary vascularity, mediastinum and cardiac silhouette are within normal limits. No effusions and no pneumothorax. Osseous structures appear unremarkable. Impression: No evidence of acute cardiopulmonary disease. Dictated by: Main Cruz MD @ 12/25/2016 21:51:11 (Electronic Signature) Report Signed by Proxy. [facility] NET[facility]KE[facility]
== END 2016-12-26 08:50 | disposition home or self-care (01) | DRG 897 ==
LOC: MW.ED 20:35 → MW.ICU 22:34
PROVIDERS: ADMIT Internal Medicine; ATTEND Internal Medicine
DX: F10.129 Alcohol abuse with intoxication, unspecified (principal); I95.9 Hypotension, unspecified; K70.30 Alcoholic cirrhosis of liver without ascites; R09.02 Hypoxemia; I10 Essential (primary) hypertension
CPT/HCPCS: 36415; 71010; 71010-26; 80053; 80305; 81001; 82150; 83690; 83880; 84484; 85025; 87040; 93005; 96361; 96365; 96375; 99283; 99285-25; A9270-GY; C9113; G0480; J2060; J2405; J3411; J7040

== ENCOUNTER 2016-12-27 23:38 | Emergency (ER) | payer MEDICAID ==
--- NOTE | 2016-12-27 23:50 | EDM.PDOC ---
ED HPI GENERAL MEDICAL PROBLEM - General Chief Complaint: General Stated Complaint: WITHDRAWAL Time Seen by Provider: 12/27/16 23:49 - History of Present Illness INITIAL COMMENTS - FREE TEXT/NARRATIVE: HISTORY AND PHYSICAL: History of present illness: Patient is a 31-year-old white male with history of polysubstance abuse who presents with a concern of possible withdrawal he has been intubated in the past for acute alcohol withdrawal and substance abuse. He denies fever chills nausea vomiting chest pain or other concern Review of systems: As per history of present illness and below otherwise all systems reviewed and negative. Past medical history: As per history of present illness and as reviewed below otherwise noncontributory. Surgical history: As per history of present illness and as reviewed below otherwise noncontributory. Social history: No reported history of drug or alcohol abuse. Family history: As per history of present illness and as reviewed below otherwise noncontributory. Physical exam: HEENT: Atraumatic, normocephalic, pupils reactive, negative for conjunctival pallor or scleral icterus, mucous membranes moist, throat clear, neck supple, nontender, trachea midline. Lungs: Clear to auscultation, breath sounds equal bilaterally, chest nontender. Heart: S1S2, regular, negative for clicks, rubs, or JVD. Abdomen: Soft, nondistended, nontender. Negative for masses or hepatosplenomegaly. Negative for costovertebral tenderness. Pelvis: Stable nontender. Genitourinary: Deferred. Rectal: Deferred. Extremities: Atraumatic, negative for cords or calf pain. Neurovascular unremarkable. Neuro: Awake, alert, oriented. Cranial nerves II through XII unremarkable. Cerebellum unremarkable. Motor and sensory unremarkable throughout. Exam nonfocal. Diagnostics: CBC CMP Therapeutics: Normal saline 1 L bolus Impression: #1 history of polysubstance abuse #2 medical screening exam Definitive disposition and diagnosis as appropriate pending reevaluation and review of above. - Related Data Allergies Allergy/AdvReac Type Severity Reaction Status Date / Time No Known Allergies Allergy Verified 12/27/16 23:45 Home Meds: Home Meds . [No Known Home Meds] 12/27/16 [History] Past Medical History - Past Health History Medical/Surgical History: Denies Medical/Surgical History HEENT History: Reports: None Cardiovascular History: Reports: Hypertension Respiratory History: Reports: None Gastrointestinal History: Reports: None Other Gastrointestinal History: states has liver failure Genitourinary History: Reports: None Musculoskeletal History: Reports: None Neurological History: Reports: Seizure, Other (See Below) Other Neuro History: alcohol withdrawl seizure in the past. Psychiatric History: Reports: Addiction Other Psychiatric History: etoh abuse, states " have gone through withdrawls in the past". when pt asked if this felt like withdrawls he stated "no". Endocrine/Metabolic History: Reports: Obesity/BMI 30+ Hematologic History: Reports: None Immunologic History: Reports: None Oncologic (Cancer) History: Reports: None Dermatologic History: Reports: None - Infectious Disease History Infectious Disease History: Reports: None - Past Surgical History HEENT Surgical History: Reports: None Cardiovascular Surgical History: Reports: None Respiratory Surgical History: Reports: None GI Surgical History: Reports: None Male Surgical History: Reports: None Neurological Surgical History: Reports: None Musculoskeletal Surgical History: Reports: None Oncologic Surgical History: Reports: None Social & Family History - Family History Family Medical History: Noncontributory Cardiac: Reports: [place] Neurological: Reports: TIA Psychiatric: Reports: Other (See Below) Other Psychiatric Family History: etoh abuse - Tobacco Use Smoking Status *Q: Never Smoker Second Hand Smoke Exposure: No - Caffeine Use Caffeine Use: Reports: None Caffeine Use Comment: pt unable to answer - Alcohol Use Days Per Week of Alcohol Use: 7 Number of Drinks Per Day: 8 Total Drinks Per Week: 56 - Recreational Drug Use Recreational Drug Use: No ED ROS GENERAL - Review of Systems Review Of Systems: ROS reveals no pertinent complaints other than HPI. ED EXAM, GENERAL - Physical Exam Exam: See Below (See dictation) Course - Vital Signs Last Recorded V/S: Last Vital Signs Temp 36.3 C 12/27/16 23:45 Pulse 84 12/27/16 23:45 Resp 17 12/27/16 23:45 BP 134/87 12/27/16 23:45 Pulse Ox 94 L 12/27/16 23:45 - Orders/Labs/Meds Orders: Active Orders 24 hr Category Date Time Status CBC WITH AUTO DIFF [HEME] Stat Lab 12/27/16 00:57 Received CMP [COMPREHENSIVE METABOLIC PN,CMP] [CHEM] Stat Lab 12/27/16 00:57 Received Departure - Departure Time of Disposition: 00:06 Disposition: Home, Self-Care 01 Condition: Good Clinical Impression: Encounter for medical screening examination, History of substance abuse - Discharge Information Forms: ED Department Discharge Additional Instructions: The following information is given to patients seen in the emergency department who are being discharged to home. This information is to outline your options for follow-up care. We provide all patients seen in our emergency department with a follow-up referral. The need for follow-up, as well as the timing and circumstances, are variable depending upon the specifics of your emergency department visit. If you don't have a primary care physician on staff, we will provide you with a referral. We always advise you to contact your personal physician following an emergency department visit to inform them of the circumstance of the visit and for follow-up with them and/or the need for any referrals to a consulting specialist. The emergency department will also refer you to a specialist when appropriate. This referral assures that you have the opportunity for followup care with a specialist. All of these measure are taken in an effort to provide you with optimal care, which includes your followup. Under all circumstances we always encourage you to contact your private physician who remains a resource for coordinating your care. When calling for followup care, please make the office aware that this follow-up is from your recent emergency room visit. If for any reason you are refused follow-up, please contact the [facility] emergency department at and asked to speak to the emergency department charge nurse. Follow primary medical doctor 1-2 days return as needed as discussed - My Orders Last 24 Hours: My Active Orders 12/27/16 00:57 CBC WITH AUTO DIFF [HEME] Stat CMP [COMPREHENSIVE METABOLIC PN,CMP] [CHEM] Stat - Assessment/Plan Last 24 Hours: My Active Orders 12/27/16 00:57 CBC WITH AUTO DIFF [HEME] Stat CMP [COMPREHENSIVE METABOLIC PN,CMP] [CHEM] Stat
[2016-12-28 00:35] LABS: CHLORIDE,CL 109 mmol/L (98-110); SODIUM,NA 145 mmol/L (136-146)
[2016-12-28 01:29] VITALS: BP 139/100
== END 2016-12-28 00:56 | disposition home or self-care (01) ==
LOC: MW.ED 23:38
DX: Z13.9 Encounter for screening, unspecified (principal)
CPT/HCPCS: 80053; 85025; 99282; 99284

== ENCOUNTER 2017-06-21 16:20 | Inpatient (IN) | payer MEDICAID ==
[2017-06-21] MEDS ORDERED: Sodium Chloride 0.9% 1,000 ML IV ONE ×2 (16:22→18:10)
[2017-06-21] MEDS ORDERED: Ondansetron 4 MG/2 ML SDV IVPUSH ONE (16:22)
--- NOTE | 2017-06-21 16:22 | EDM.PDOCBH ---
ED HPI GENERAL MEDICAL PROBLEM - General Stated Complaint: WEAKNESS Time Seen by Provider: 06/21/17 16:42 Source of Information: Reports: Patient, EMS History Limitations: Reports: No Limitations - History of Present Illness INITIAL COMMENTS - FREE TEXT/NARRATIVE: HISTORY AND PHYSICAL: History of present illness: Patient is a 32-year-old male who presents to the emergency room today with complaints of weakness. He states he was recently hospitalized for pneumonia and discharged to home. Patient does have a long-standing history of alcohol abuse and is well-known to our emergency room. Patient states he has had some alcohol today prior to arrival, but feels like he is going through withdrawal. States he also has weakness, nausea generalized abdominal pain. Uncertain that he may have pneumonia again. Review of systems: As per history of present illness and below otherwise all systems reviewed and negative. Past medical history: As per history of present illness and as reviewed below otherwise noncontributory. Surgical history: As per history of present illness and as reviewed below otherwise noncontributory. Social history: No reported history of drug or alcohol abuse. Family history: As per history of present illness and as reviewed below otherwise noncontributory. Physical exam: General: Well-developed and well-nourished 32-year-old male. Alert but rest with eyes closed. Easily arousable. No acute distress. HEENT: Atraumatic, normocephalic, pupils equal and reactive bilaterally, negative for conjunctival pallor or scleral icterus, mucous membranes moist, throat clear, neck supple, nontender, trachea midline. No drooling or trismus noted. No meningeal signs Lungs: Poor air exchange and diminished throughout, breath sounds equal bilaterally, chest nontender. Heart: S1S2, regular rate and rhythm without overt murmur Abdomen: Soft, nondistended, nontender. Negative for masses or hepatosplenomegaly. Negative for costovertebral tenderness. Pelvis: Stable nontender. Genitourinary: Deferred. Rectal: Deferred. Skin: Intact, warm, dry. No lesions or rashes noted. Extremities: Atraumatic, moves all extremities per self without difficulty or deficits. negative for cords or calf pain. Neurovascular unremarkable. Neuro: Awake, alert, oriented. Cranial nerves II through XII unremarkable. Cerebellum unremarkable. Motor and sensory unremarkable throughout. Exam nonfocal. Notes: WBC is 15.6 (H), potassium is 3.0 (L), AST 45 (H), ALT 67 (H). Patient's x-ray shows low lung volumes with left bibasilar atelectasis with no low lobular consolidation. His blood pressures have been ranging from 70-90's over 40-50's. HR 80's. Stats 90% on RA. Patient will be admitted and treated as a CAP. IV levaquin ordered. Mike was consulted on this case; agrees to keep in in ICU. Pt aware and agreeable. Will continue to monitor vital signs. Diagnostics: CBC, CMP, chest x-ray, EKG, blood culture Therapeutics: Solumedrol, IV fluids, Duo Neb, Levaquin Impression: Alcohol abuse Hypokalemia Hypotension Hypoxia Pneumonia Plan: Inpatient ICU for pneumonia Definitive disposition and diagnosis as appropriate pending reevaluation and review of above. Onset: Today Location: Reports: Generalized Generalized Pain Score (Numeric/FACES): 10 - Related Data Allergies Allergy/AdvReac Type Severity Reaction Status Date / Time No Known Allergies Allergy Verified 12/27/16 23:45 Home Meds: Home Meds Pantoprazole Sodium [Protonix] 40 mg PO DAILY 06/21/17 [History] Prednisone [IJD: predniSONE] 20 mg PO ASDIRECTED 06/21/17 [History] Venlafaxine [Effexor XR] 75 mg PO DAILY 06/21/17 [History] Past Medical History - Past Health History Medical/Surgical History: Denies Medical/Surgical History HEENT History: Reports: None Cardiovascular History: Reports: Hypertension Respiratory History: Reports: None Gastrointestinal History: Reports: None Other Gastrointestinal History: states has liver failure Genitourinary History: Reports: None Musculoskeletal History: Reports: None Neurological History: Reports: Seizure, Other (See Below) Other Neuro History: alcohol withdrawl seizure in the past. Psychiatric History: Reports: Addiction Other Psychiatric History: etoh abuse, states " have gone through withdrawls in the past". when pt asked if this felt like withdrawls he stated "no". Endocrine/Metabolic History: Reports: Obesity/BMI 30+ Hematologic History: Reports: None Immunologic History: Reports: None Oncologic (Cancer) History: Reports: None Dermatologic History: Reports: None - Infectious Disease History Infectious Disease History: Reports: None - Past Surgical History HEENT Surgical History: Reports: None Cardiovascular Surgical History: Reports: None Respiratory Surgical History: Reports: None GI Surgical History: Reports: None Male Surgical History: Reports: None Neurological Surgical History: Reports: None Musculoskeletal Surgical History: Reports: None Oncologic Surgical History: Reports: None Social & Family History - Family History Family Medical History: Noncontributory Cardiac: Reports: [place] Neurological: Reports: TIA Psychiatric: Reports: Other (See Below) Other Psychiatric Family History: etoh abuse - Tobacco Use Smoking Status *Q: Never Smoker Second Hand Smoke Exposure: No - Caffeine Use Caffeine Use: Reports: None Caffeine Use Comment: pt unable to answer - Alcohol Use Days Per Week of Alcohol Use: 7 Number of Drinks Per Day: 8 Total Drinks Per Week: 56 - Recreational Drug Use Recreational Drug Use: No ED ROS GENERAL - Review of Systems Review Of Systems: ROS reveals no pertinent complaints other than HPI. ED EXAM, BEHAVIORAL HEALTH - Physical Exam Exam: See Below (See dictation) COURSE, BEHAVIORAL HEALTH COMP - Course Vital Signs: Last Vital Signs Temp 98.2 F 06/21/17 16:23 Pulse 99 06/21/17 16:23 Resp 16 06/21/17 16:23 BP 92/62 06/21/17 16:23 Pulse Ox 89 L 06/21/17 16:23 Orthostatic Blood Pressure [ 98/62 Standing] Orthostatic Blood Pressure [ 111/67 Sitting] Orthostatic Blood Pressure [ 92/54 Supine] Orders, Labs, Meds: Active Orders 24 hr Category Date Time Status EKG Documentation Completion [RC] STAT Care 06/21/17 16:22 Active Orthostatic Vital Signs [RC] ASDIRECTED Care 06/21/17 16:22 Active Oxygen Therapy, ED [RC] ASDIRECTED Care 06/21/17 17:39 Active RT Aerosol Therapy [RC] ASDIRECTED Care 06/21/17 17:40 Active Chest 1V Frontal [CR] Stat Exams 06/21/17 16:29 Taken INFLUENZA A+B AG SCREEN [RM] Stat Lab 06/21/17 16:55 Ordered Medication Orders Sodium Chloride (Normal Saline) 1,000 mls @ 999 mls/hr IV STAT ONE Stop: 06/21/17 19:10 Levofloxacin/Dextrose 750 mg/ (Premix) 150 mls @ 100 mls/hr IV ONETIME ONE Stop: 06/21/17 19:42 Laboratory Tests 0406/21/17 06/21/17 Range/Units 16:32 16:32 16:32 WBC 15.62 H (4.0-11.0) K/uL RBC 5.09 (4.50-5.90) M/uL Hgb 14.4 (13.0-17.0) g/dL Hct 42.9 (38.0-50.0) % MCV 84.3 (80.0-98.0) fL MCH 28.3 (27.0-32.0) pg MCHC 33.6 (31.0-37.0) g/dL RDW Std Deviation 45.2 (28.0-62.0) fl RDW Coeff of Jennifer 15 (11.0-15.0) % Plt Count 296 (150-400) K/uL MPV 9.40 (7.40-12.00) fL Add Manual Diff YES Neutrophils % (Manual) 66 (48.0-80.0) % Lymphocytes % (Manual) 22 (16.0-40.0) % Monocytes % (Manual) 10 (0.0-15.0) % Eosinophils % (Manual) 2 (0.0-7.0) % Nucleated RBC % 0.0 /100WBC Absolute Seg Neuts 10.3 H (1.4-5.7) Lymphocytes # (Manual) 3.4 H (0.6-2.4) Monocytes # (Manual) 1.6 H (0.0-0.8) Eosinophils # (Manual) 0.3 (0.0-0.7) Nucleated RBCs # 0 K/uL Sodium 146 (136-148) mmol/L Potassium 3.0 L (3.5-5.1) mmol/L Chloride 111 H (98-107) mmol/L Carbon Dioxide 23.1 (21.0-32.0) mmol/L BUN 7 (7.0-18.0) mg/dL Creatinine 0.9 (0.8-1.3) mg/dL Est Cr Clr Drug Dosing 104.36 mL/min Estimated GFR (MDRD) > 60.0 ml/min Glucose 106 (74-106) mg/dL Calcium 7.9 L (8.5-10.1) mg/dL Total Bilirubin 0.2 (0.2-1.0) mg/dL AST 45 H (15-37) IU/L ALT 67 H (14-63) IU/L Alkaline Phosphatase 60 (46-116) U/L Total Protein 7.4 (6.4-8.2) g/dL Albumin 3.2 L (3.4-5.0) g/dL Globulin 4.2 H (2.0-3.5) g/dL Albumin/Globulin Ratio 0.8 L (1.3-2.8) Amylase (25-115) U/L Lipase (73-393) U/L Ethyl Alcohol 339 mg/dL 06/21/17 Range/Units 16:32 WBC (4.0-11.0) K/uL RBC (4.50-5.90) M/uL Hgb (13.0-17.0) g/dL Hct (38.0-50.0) % MCV (80.0-98.0) fL MCH (27.0-32.0) pg MCHC (31.0-37.0) g/dL RDW Std Deviation (28.0-62.0) fl RDW Coeff of Jennifer (11.0-15.0) % Plt Count (150-400) K/uL MPV (7.40-12.00) fL Add Manual Diff Neutrophils % (Manual) (48.0-80.0) % Lymphocytes % (Manual) (16.0-40.0) % Monocytes % (Manual) (0.0-15.0) % Eosinophils % (Manual) (0.0-7.0) % Nucleated RBC % /100WBC Absolute Seg Neuts (1.4-5.7) Lymphocytes # (Manual) (0.6-2.4) Monocytes # (Manual) (0.0-0.8) Eosinophils # (Manual) (0.0-0.7) Nucleated RBCs # K/uL Sodium (136-148) mmol/L Potassium (3.5-5.1) mmol/L Chloride (98-107) mmol/L Carbon Dioxide (21.0-32.0) mmol/L BUN (7.0-18.0) mg/dL Creatinine (0.8-1.3) mg/dL Est Cr Clr Drug Dosing mL/min Estimated GFR (MDRD) ml/min Glucose (74-106) mg/dL Calcium (8.5-10.1) mg/dL Total Bilirubin (0.2-1.0) mg/dL AST (15-37) IU/L ALT (14-63) IU/L Alkaline Phosphatase (46-116) U/L Total Protein (6.4-8.2) g/dL Albumin (3.4-5.0) g/dL Globulin (2.0-3.5) g/dL Albumin/Globulin Ratio (1.3-2.8) Amylase 39 (25-115) U/L Lipase 185 (73-393) U/L Ethyl Alcohol mg/dL Medications Generic Name Dose Route Start Last Admin Trade Name Freq PRN Reason Stop Dose Admin Sodium Chloride 1,000 mls @ 999 mls/hr 06/21/17 18:10 Normal Saline IV 06/21/17 19:10 STAT ONE Levofloxacin/Dextrose 750 mg/ 150 mls @ 100 mls/hr 06/21/17 18:13 Premix IV 06/21/17 19:42 ONETIME ONE Discontinued Medications Generic Name Dose Route Start Last Admin Trade Name Freq PRN Reason Stop Dose Admin Albuterol/Ipratropium 3 ml 06/21/17 17:39 06/21/17 17:51 Duoneb 3.0-0.5 Mg/3 Ml NEB 06/21/17 17:40 3 ml ONETIME ONE Administration Sodium Chloride 1,000 mls @ 999 mls/hr 06/21/17 16:22 06/21/17 16:53 Normal Saline IV 06/21/17 17:22 999 mls/hr STAT ONE Administration Azithromycin 500 mg/ Sodium 500 mls @ 250 mls/hr 06/21/17 18:08 Chloride IV 06/21/17 20:07 ONETIME ONE Ceftriaxone Sodium/Dextrose 1 50 mls @ 100 mls/hr 06/21/17 18:08 gm/ Premix IV 06/21/17 18:37 ONETIME ONE Methylprednisolone Sodium Succinate 125 mg 06/21/17 17:39 06/21/17 17:57 Solu-Medrol IVPUSH 06/21/17 17:40 125 mg ONETIME ONE Administration Ondansetron HCl 4 mg 06/21/17 16:22 06/21/17 16:53 Zofran IVPUSH 06/21/17 16:23 4 mg ONETIME ONE Administration Departure - Departure Time of Disposition: 18:27 Disposition: Admitted As Inpatient 64 Clinical Impression: Alcohol abuse, Hypokalemia Hypotension Qualifiers: Hypotension type: unspecified hypotension type Qualified Code(s): I95.9 - Hypotension, unspecified Pneumonia Qualifiers: Pneumonia type: due to unspecified organism Laterality: left Lung location: lower lobe of lung Qualified Code(s): J18.1 - Lobar pneumonia, unspecified organism - Discharge Information - My Orders Last 24 Hours: My Active Orders 06/21/17 16:22 EKG Documentation Completion [RC] STAT Orthostatic Vital Signs [RC] ASDIRECTED 06/21/17 16:29 Chest 1V Frontal [CR] Stat 06/21/17 16:55 INFLUENZA A+B AG SCREEN [RM] Stat 06/21/17 17:39 Oxygen Therapy, ED [RC] ASDIRECTED 06/21/17 17:40 RT Aerosol Therapy [RC] ASDIRECTED - Assessment/Plan Last 24 Hours: My Active Orders 06/21/17 16:22 EKG Documentation Completion [RC] STAT Orthostatic Vital Signs [RC] ASDIRECTED 06/21/17 16:29 Chest 1V Frontal [CR] Stat 06/21/17 16:55 INFLUENZA A+B AG SCREEN [RM] Stat 06/21/17 17:39 Oxygen Therapy, ED [RC] ASDIRECTED 06/21/17 17:40 RT Aerosol Therapy [RC] ASDIRECTED
[2017-06-21 17:12] LABS: CHLORIDE,CL 111 mmol/L (98-107); SODIUM,NA 146 mmol/L (136-148)
[2017-06-21] MEDS ORDERED: methylPREDNISolone Sodium Succinate 125 MG/2 ML SDV IVPUSH ONE (17:39)
[2017-06-21] MEDS ORDERED: Albuterol/Ipratropium 3.0-0.5 MG/3 ML Neb Soln NEB ONE (17:39)
[2017-06-21] MEDS ORDERED: cefTRIAXone 1 GM in Premix Bag 1 BAG IV ONE (18:08)
[2017-06-21] MEDS ORDERED: Azithromycin 500 MG in Sodium Chloride 0.9% 500 ML IV ONE (18:08)
[2017-06-21] MEDS ORDERED: Levofloxacin/Dextrose 5%-Water 750 MG in Premix Bag 1 BAG IV ONE (18:13)
[2017-06-21] MEDS ORDERED: LORazepam 2 MG/ML SDV IVPUSH PRN (19:40)
[2017-06-21] MEDS ORDERED: Ondansetron 4 MG/2 ML SDV IVPUSH PRN (19:41)
[2017-06-21] MEDS ORDERED: Thiamine 200 MG/2 ML MDV IVPUSH SCH (19:45)
[2017-06-21] MEDS ORDERED: Sodium Chloride 0.9% with KCl 1,000 ML IV SCH (19:45)
[2017-06-21] MEDS ORDERED: Pantoprazole 40 MG Vial IVPUSH SCH (19:45)
[2017-06-21] MEDS ORDERED: Folic Acid 50 MG/10 ML MDV SUBCUT SCH (19:45)
[2017-06-21] MEDS ORDERED: Sodium Chloride 0.9% 1,000 ML IV SCH (19:45)
--- NOTE | 2017-06-21 19:49 | PCM.HP ---
H&P History of Present Illness - General Admit Problem/Dx: Admission Diagnosis/Problem Admission Diagnosis/Problem Pneumonia - History of Present Illness Initial Comments - Free Text/Narative: 32 yo male with pmh of ETOH abuse with mutliple admissions for ETOH withdrawal. He reports was discharged from [place] last where he was treated for a pneumonia. He presents to the ED intoxicated reporting that he is in withdrawals. He reports fevers, chills, and chest congestion. CXR shows left basilar infiltrate. WBC is 15,000. Generalized Pain Score (Numeric/FACES): 6 - Related Data Allergies/Adverse Reactions: Allergies Allergy/AdvReac Type Severity Reaction Status Date / Time No Known Allergies Allergy Verified 12/27/16 23:45 Home Medications: Home Meds Pantoprazole Sodium [Protonix] 40 mg PO DAILY 06/21/17 [History] Prednisone [IJD: predniSONE] 20 mg PO ASDIRECTED 06/21/17 [History] Venlafaxine [Effexor XR] 75 mg PO DAILY 06/21/17 [History] Past Medical History - Past Health History Medical/Surgical History: Denies Medical/Surgical History HEENT History: Reports: None Cardiovascular History: Reports: Hypertension Respiratory History: Reports: Other (See Below) Other Respiratory History: pneumonia- recently hospitalized in [place] Gastrointestinal History: Reports: None Other Gastrointestinal History: states has liver failure Genitourinary History: Reports: None Musculoskeletal History: Reports: None Neurological History: Reports: Seizure, Other (See Below) Other Neuro History: alcohol withdrawl seizure in the past. Psychiatric History: Reports: Addiction, Anxiety Other Psychiatric History: etoh abuse, states " have gone through withdrawls in the past". when pt asked if this felt like withdrawls he stated "no". Anxiety and taking Ativan for it Endocrine/Metabolic History: Reports: Obesity/BMI 30+ Hematologic History: Reports: None Immunologic History: Reports: None Oncologic (Cancer) History: Reports: None Dermatologic History: Reports: None - Infectious Disease History Infectious Disease History: Reports: None - Past Surgical History Head Surgeries/Procedures: Reports: None HEENT Surgical History: Reports: None Cardiovascular Surgical History: Reports: None Respiratory Surgical History: Reports: None GI Surgical History: Reports: None Male Surgical History: Reports: None Neurological Surgical History: Reports: None Musculoskeletal Surgical History: Reports: None Oncologic Surgical History: Reports: None Social & Family History - Family History Family Medical History: Noncontributory Cardiac: Reports: [place] Neurological: Reports: TIA Psychiatric: Reports: Other (See Below) Other Psychiatric Family History: etoh abuse - Tobacco Use Smoking Status *Q: Never Smoker Second Hand Smoke Exposure: No - Caffeine Use Caffeine Use: Reports: None Caffeine Use Comment: pt unable to answer - Alcohol Use Days Per Week of Alcohol Use: 7 Number of Drinks Per Day: 8 Total Drinks Per Week: 56 - Recreational Drug Use Recreational Drug Use: No H&P Review of Systems - Review of Systems: Review Of Systems: ROS reveals no pertinent complaints other than HPI. Exam - Exam Exam: See Below - Vital Signs Vital Signs: Last Vital Signs Temp 36.7 C 06/21/17 18:43 Pulse 84 06/21/17 19:16 Resp 18 06/21/17 19:05 BP 109/62 06/21/17 19:16 Pulse Ox 94 L 06/21/17 19:16 Orthostatic Blood Pressure [ 98/62 Standing] Orthostatic Blood Pressure [ 111/67 Sitting] Orthostatic Blood Pressure [ 92/54 Supine] Weight: 104.326 kg - Exam General: Alert, Cooperative HEENT: Mucosa Moist & [place] Lungs: Clear to Auscultation, Normal Respiratory Effort Cardiovascular: Regular Rate, Regular Rhythm GI/Abdominal Exam: Soft, Non-Tender Extremities: No Pedal Edema Skin: Warm, Dry, Intact Neurological: Other (intoxicated). No: Focal Deficit - Patient Data Lab Results Last 24 hrs: Laboratory Results - last 24 hr 06/21/17 06/21/17 06/21/17 Range/Units 16:32 16:32 16:32 WBC 15.62 H (4.0-11.0) K/uL RBC 5.09 (4.50-5.90) M/uL Hgb 14.4 (13.0-17.0) g/dL Hct 42.9 (38.0-50.0) % MCV 84.3 (80.0-98.0) fL MCH 28.3 (27.0-32.0) pg MCHC 33.6 (31.0-37.0) g/dL RDW Std Deviation 45.2 (28.0-62.0) fl RDW Coeff of Jennifer 15 (11.0-15.0) % Plt Count 296 (150-400) K/uL MPV 9.40 (7.40-12.00) fL Add Manual Diff YES Neutrophils % (Manual) 66 (48.0-80.0) % Lymphocytes % (Manual) 22 (16.0-40.0) % Monocytes % (Manual) 10 (0.0-15.0) % Eosinophils % (Manual) 2 (0.0-7.0) % Nucleated RBC % 0.0 /100WBC Absolute Seg Neuts 10.3 H (1.4-5.7) Lymphocytes # (Manual) 3.4 H (0.6-2.4) Monocytes # (Manual) 1.6 H (0.0-0.8) Eosinophils # (Manual) 0.3 (0.0-0.7) Nucleated RBCs # 0 K/uL Sodium 146 (136-148) mmol/L Potassium 3.0 L (3.5-5.1) mmol/L Chloride 111 H (98-107) mmol/L Carbon Dioxide 23.1 (21.0-32.0) mmol/L BUN 7 (7.0-18.0) mg/dL Creatinine 0.9 (0.8-1.3) mg/dL Est Cr Clr Drug Dosing 104.36 mL/min Estimated GFR (MDRD) > 60.0 ml/min Glucose 106 (74-106) mg/dL Calcium 7.9 L (8.5-10.1) mg/dL Total Bilirubin 0.2 (0.2-1.0) mg/dL AST 45 H (15-37) IU/L ALT 67 H (14-63) IU/L Alkaline Phosphatase 60 (46-116) U/L Total Protein 7.4 (6.4-8.2) g/dL Albumin 3.2 L (3.4-5.0) g/dL Globulin 4.2 H (2.0-3.5) g/dL Albumin/Globulin Ratio 0.8 L (1.3-2.8) Amylase (25-115) U/L Lipase (73-393) U/L Ethyl Alcohol 339 mg/dL 06/21/17 Range/Units 16:32 WBC (4.0-11.0) K/uL RBC (4.50-5.90) M/uL Hgb (13.0-17.0) g/dL Hct (38.0-50.0) % MCV (80.0-98.0) fL MCH (27.0-32.0) pg MCHC (31.0-37.0) g/dL RDW Std Deviation (28.0-62.0) fl RDW Coeff of Jennifer (11.0-15.0) % Plt Count (150-400) K/uL MPV (7.40-12.00) fL Add Manual Diff Neutrophils % (Manual) (48.0-80.0) % Lymphocytes % (Manual) (16.0-40.0) % Monocytes % (Manual) (0.0-15.0) % Eosinophils % (Manual) (0.0-7.0) % Nucleated RBC % /100WBC Absolute Seg Neuts (1.4-5.7) Lymphocytes # (Manual) (0.6-2.4) Monocytes # (Manual) (0.0-0.8) Eosinophils # (Manual) (0.0-0.7) Nucleated RBCs # K/uL Sodium (136-148) mmol/L Potassium (3.5-5.1) mmol/L Chloride (98-107) mmol/L Carbon Dioxide (21.0-32.0) mmol/L BUN (7.0-18.0) mg/dL Creatinine (0.8-1.3) mg/dL Est Cr Clr Drug Dosing mL/min Estimated GFR (MDRD) ml/min Glucose (74-106) mg/dL Calcium (8.5-10.1) mg/dL Total Bilirubin (0.2-1.0) mg/dL AST (15-37) IU/L ALT (14-63) IU/L Alkaline Phosphatase (46-116) U/L Total Protein (6.4-8.2) g/dL Albumin (3.4-5.0) g/dL Globulin (2.0-3.5) g/dL Albumin/Globulin Ratio (1.3-2.8) Amylase 39 (25-115) U/L Lipase 185 (73-393) U/L Ethyl Alcohol mg/dL Result Diagrams: 06/21/17 16:32 06/21/17 16:32 Andrew Results Last 24 hrs: Microbiology 06/21/17 16:55 Influenza Type A Antigen Screen - Final Nasopharyngeal Swab NEGATIVE INFLUENZA A VIRUS AG Influenza Type B Antigen Screen - Final NEGATIVE INFLUENZA B VIRUS AG Problem List Initiated/Reviewed/Updated: Yes Orders Last 24hrs: Active Orders 24 hr Category Date Time Status Patient Status [ADT] Stat ADT 06/21/17 18:08 Active Cardiac Monitoring [RC] . DIRECTED Care 06/21/17 18:08 Active Orthostatic Vital Signs [RC] ASDIRECTED Care 06/21/17 16:22 Active Oxygen Therapy [RC] PRN Care 06/21/17 19:41 Ordered Oxygen Therapy, ED [RC] ASDIRECTED Care 06/21/17 17:39 Active RT Aerosol Therapy [RC] ASDIRECTED Care 06/21/17 17:40 Active Up ad Ayaka [RC] ASDIRECTED Care 06/21/17 19:41 Ordered VTE/DVT Education [RC] PER UNIT ROUTINE Care 06/21/17 19:41 Ordered Vital Signs [RC] Q4H Care 06/21/17 19:41 Ordered Regular Diet [DIET] Diet 06/21/17 Breakfast Ordered Chest 1V Frontal [CR] Stat Exams 06/21/17 16:29 Taken CBC WITH AUTO DIFF [HEME] AM Lab 06/22/17 05:11 Ordered COMPREHENSIVE METABOLIC PN,CMP [CHEM] AM Lab 06/22/17 05:11 Ordered CULTURE BLOOD [BC] Stat Lab 06/21/17 18:40 Received CULTURE BLOOD [BC] Stat Lab 06/21/17 18:45 Received CULTURE SPUTUM + SMEAR [RM] Routine Lab 06/21/17 19:39 Ordered INFLUENZA A+B AG SCREEN [RM] Stat Lab 06/21/17 16:55 Ordered MAGNESIUM [CHEM] Routine Lab 06/21/17 19:31 Ordered Enoxaparin [Lovenox] Med 06/21/17 19:45 Ordered 40 mg SUBCUT Q24H Folic Acid Med 06/21/17 19:45 Ordered 1 mg SUBCUT DAILY LORazepam [Ativan] Med 06/21/17 19:40 Ordered See Protocol IVPUSH Q4H PRN Levofloxacin/Dextrose 5%-Water [Levaquin in D5W 750 MG/ Med 06/22/17 19:45 Ordered 150 ML] 750 mg Premix Bag 1 bag IV Q24H Ondansetron [Zofran] Med 04/16/18 19:41 Ordered 4 mg IVPUSH Q4H PRN Pantoprazole [ProTONIX IV] Med 06/21/17 19:45 Ordered 40 mg IVPUSH Q24H Piperacillin/Tazobactam [Piperacil-Tazobact] 4.5 gm Med 06/21/17 19:45 Ordered Sodium Chloride 0.9% [Normal Saline] 100 ml IV Q6H Sodium Chloride 0.9% @ 125 MLS/HR (1000ml) Med 06/21/17 19:45 Ordered Sodium Chloride 0.9% [Normal Saline] 1,000 ml IV ASDIRECTED Sodium Chloride 0.9% with KCl 40 mEq @ Enter Rate (1000 Med 06/21/17 19:45 Ordered mL) Sodium Chloride 0.9% with KCl [Normal Saline with 40 mEq KCl] 1,000 ml IV ASDIRECTED Thiamine [Vitamin B-1] Med 06/21/17 19:45 Ordered 100 mg IV DAILY Vancomycin Pharmacy to Dose [Pharmacy to Dose - Med 06/21/17 19:45 Ordered Vancomycin] 1 dose .XX ASDIRECTED Sequential Compression Device [OM.PC] Per Unit Routine Oth 06/21/17 19:42 Ordered Resuscitation Status Routine Resus Stat 06/21/17 19:41 Ordered Medication Orders Enoxaparin Sodium (Lovenox) 40 mg SUBCUT Q24H [facility] Folic Acid (Folic Acid) 1 mg SUBCUT DAILY [facility] Levofloxacin/Dextrose 750 mg/ (Premix) 150 mls @ 100 mls/hr IV Q24H [facility] Piperacillin Sod/Tazobactam (Sod 4.5 gm/ Sodium Chloride) 100 mls @ 100 mls/hr IV Q6H [facility] Potassium Chloride/Sodium Chloride (Normal Saline With 40 Meq Kcl) 1,000 mls @ 150 mls/hr IV ASDIRECTED [facility] Stop: 06/22/17 02:24 Sodium Chloride (Normal Saline) 1,000 mls @ 125 mls/hr IV ASDIRECTED [facility] Lorazepam (Ativan) 0 mg IVPUSH Q4H PRN; Protocol PRN Reason: protocol Ondansetron HCl (Zofran) 4 mg IVPUSH Q4H PRN PRN Reason: Nausea Pantoprazole Sodium (Protonix Iv) 40 mg IVPUSH Q24H [facility] Thiamine HCl (Vitamin B-1) 100 mg IV DAILY [facility] Vancomycin HCl (Pharmacy To Dose - Vancomycin) 1 dose .XX ASDIRECTED [facility] Assessment/Plan Comment:: 32 yo male admitted with ETOH widrawal and probable pneumonia: ETOH withdrawal: treating with ativan per [facility] protocol, thiamin and folic acid Pneumonia: due to recent hospitalization will treat for gram negative jose alfredo respiratory infection with broad spectrum antibiotics.
[2017-06-21] MEDS ORDERED: Piperacillin/Tazobactam 4.5 GM in Sodium Chloride 0.9% 100 ML IV SCH (20:00)
[2017-06-21] MEDS ORDERED: Enoxaparin 40 MG/0.4 ML Syringe SUBCUT SCH (20:00)
[2017-06-21] MEDS ORDERED: Potassium Chloride 10% 20 MEQ/15 ML Soln 30 ML UD Cup PO ONE (21:10)
[2017-06-21] MEDS ORDERED: Potassium Chloride 20 MEQ Tab.ER PO ONE (21:10)
[2017-06-21] MEDS ORDERED: Acetaminophen/HYDROcodone 325-7.5 MG Tab PO PRN (21:13)
[2017-06-21] MEDS ORDERED: Vancomycin 2 GM in Sodium Chloride 0.9% 500 ML IV ONE (22:00)
[2017-06-21 22:35] VITALS: BP 120/81
--- NOTE | 2017-06-22 07:21 | PCM.SN ---
- Free Text/Narrative Note: last night after patient sobered up he demanded to leave and absconded. A prescription for levaquin 750 mg daily was called in to the pharmacy for him.
--- NOTE | 2017-06-22 10:58 | CR ---
EXAM DATE: 06/21/17 PATIENT'S AGE: 32 Patient: ISAAK HARDWICK Facility: [place], [place] Site . Site : 1985 Study: XRay Chest [id number] 5:22:43 PM Ordering Physician: Doctor Yanez Final Report: HISTORY: Pneumonia, weakness, alcohol withdrawal. FINDINGS: AP portable chest radiograph is compared with 25 December 2016. There are low lung volumes present. The cardiac silhouette is normal. No cephalization. There is small amount of linear density seen in the left base. No lobar consolidation or pleural effusion is seen. IMPRESSION: Low lung volumes with left basilar atelectasis. No lobar consolidation. Dictated by Елена Delgado MD @ 06/21/2017 5:46:10 PM Dictated by: Елена Delgado MD @ 06/21/2017 17:46:15 (Electronic Signature) Report Signed by Proxy. [facility]
[2017-06-22] MEDS ORDERED: Levofloxacin/Dextrose 5%-Water 750 MG in Premix Bag 1 BAG IV SCH (20:00)
== END 2017-06-21 22:30 | disposition left against medical advice (07) | DRG 194 ==
LOC: MW.ED 16:20 → MW.ICU 18:08
PROVIDERS: ADMIT Internal Medicine; ATTEND Internal Medicine
DX: J18.1 Lobar pneumonia, unspecified organism (principal); F10.239 Alcohol dependence with withdrawal, unspecified; F10.229 Alcohol dependence with intoxication, unspecified; E87.6 Hypokalemia; I95.9 Hypotension, unspecified; I10 Essential (primary) hypertension; F41.9 Anxiety disorder, unspecified; Z79.899 Other long term (current) drug therapy
CPT/HCPCS: 36415; 71045; 71045-26; 80053; 82150; 83605; 83690; 83735; 85025; 87040; 87804; 93005; 94640; 96361; 96365; 96375; 99285-25; A9270-GY; C9113; G0480; J1956; J2060; J2405; J2543; J2930; J3370; J3411; J3480; J7030; J7040

== ENCOUNTER 2017-06-22 15:25 | Inpatient (IN) | payer MEDICAID ==
[2017-06-22] MEDS ORDERED: Sodium Chloride 0.9% 1,000 ML IV SCH (16:00)
--- NOTE | 2017-06-22 16:14 | EDM.PDOC ---
ED HPI GENERAL MEDICAL PROBLEM - General Chief Complaint: General Stated Complaint: AMBULANCE Time Seen by Provider: 06/22/17 15:52 Source of Information: Reports: Patient, Old Records History Limitations: Reports: No Limitations - History of Present Illness INITIAL COMMENTS - FREE TEXT/NARRATIVE: Patient with a past medical history of alcohol abuse with multiple admissions for alcohol withdrawal. On June 21 the patient was seen in this emergency room where he reported that he had been discharged from a hospital in [place] the previous where he had was being treated for pneumonia. He complained of fever, chills, chest congestion. He was intoxicated and he reported he was in withdrawals. A chest x-ray showed basilar infiltrate is white count was 15,000. He was admitted with a diagnosis of pneumonia and placed in the ICU for withdrawal observation. Later that evening he absconded from the ICU. Today, he arrived via EMS with a c/o weakness and alcohol withdrawal. He had called the ambulance yesterday and did so again today. Yesterday he reported that he had only had 2 shots but his blood alcohol was greater than 300. Today he does report he has been drinking again. general Pain Score (Numeric/FACES): 10 Mid-Sternal Chest Pain Score (Numeric/FACES): 9 - Related Data Allergies Allergy/AdvReac Type Severity Reaction Status Date / Time No Known Allergies Allergy Verified 06/22/17 15:49 Home Meds: Home Meds Pantoprazole Sodium [Protonix] 40 mg PO DAILY 06/21/17 [History] Prednisone [IJD: predniSONE] 20 mg PO ASDIRECTED 06/21/17 [History] Venlafaxine [Effexor XR] 75 mg PO DAILY 06/21/17 [History] Past Medical History - Past Health History Medical/Surgical History: Denies Medical/Surgical History HEENT History: Reports: None Cardiovascular History: Reports: Hypertension Respiratory History: Reports: Other (See Below) Other Respiratory History: pneumonia- recently hospitalized in [place] Gastrointestinal History: Reports: None Other Gastrointestinal History: states has liver failure Genitourinary History: Reports: None Musculoskeletal History: Reports: None Neurological History: Reports: Seizure, Other (See Below) Other Neuro History: alcohol withdrawl seizure in the past. Psychiatric History: Reports: Addiction, Anxiety Other Psychiatric History: etoh abuse, states " have gone through withdrawls in the past". when pt asked if this felt like withdrawls he stated "no". Anxiety and taking Ativan for it Endocrine/Metabolic History: Reports: Obesity/BMI 30+ Hematologic History: Reports: None Immunologic History: Reports: None Oncologic (Cancer) History: Reports: None Dermatologic History: Reports: None - Infectious Disease History Infectious Disease History: Reports: None - Past Surgical History Head Surgeries/Procedures: Reports: None HEENT Surgical History: Reports: None Cardiovascular Surgical History: Reports: None Respiratory Surgical History: Reports: None GI Surgical History: Reports: None Male Surgical History: Reports: None Neurological Surgical History: Reports: None Musculoskeletal Surgical History: Reports: None Oncologic Surgical History: Reports: None Social & Family History - Family History Family Medical History: Noncontributory Cardiac: Reports: [place] Neurological: Reports: T[place] Psychiatric: Reports: Other (See Below) Other Psychiatric Family History: etoh abuse - Tobacco Use Smoking Status *Q: Current Status Unknown Second Hand Smoke Exposure: No - Caffeine Use Caffeine Use: Reports: None Caffeine Use Comment: pt unable to answer - Alcohol Use Days Per Week of Alcohol Use: 7 Number of Drinks Per Day: 8 Total Drinks Per Week: 56 - Recreational Drug Use Recreational Drug Use: No ED ROS GENERAL - Review of Systems Review Of Systems: ROS reveals no pertinent complaints other than HPI. ED EXAM, GENERAL - Physical Exam Exam: See Below Exam Limited By: No Limitations General Appearance: Alert, No Apparent Distress Ears: Normal External Exam Nose: Normal Inspection Throat/Mouth: Normal Inspection Head: Atraumatic, Normocephalic Neck: Normal Inspection Respiratory/Chest: No Respiratory Distress, Decreased Breath Sounds Cardiovascular: Normal Peripheral Pulses GI/Abdominal: Soft Extremities: Normal Inspection Neurological: Alert, Oriented, Other (Sleepy) Psychiatric: Depressed Mood Course - Vital Signs Last Recorded V/S: Last Vital Signs Temp 37.1 C 06/22/17 17:19 Pulse 100 06/22/17 19:00 Resp 24 H 06/22/17 19:00 BP 114/69 06/22/17 19:00 Pulse Ox 92 L 06/22/17 19:00 - Orders/Labs/Meds Orders: Active Orders 24 hr Category Date Time Status EKG 12 Lead [EKG Documentation Completion] [RC] STAT Care 06/22/17 15:49 Active CULTURE BLOOD [BC] Stat Lab 06/22/17 16:20 Received CULTURE BLOOD [BC] Stat Lab 06/22/17 16:20 Received Sodium Chloride 0.9% [Normal Saline] 1,000 ml Med 06/22/17 16:00 Active IV STAT Blood Culture x2 Reflex Set [OM.PC] Stat Oth 06/22/17 15:58 Ordered Medication Orders Acetaminophen (Tylenol) 650 mg PO Q4H PRN PRN Reason: Pain (Mild 1-3)/fever Albuterol/Ipratropium (Duoneb 3.0-0.5 Mg/3 Ml) 3 ml NEB Q4HRRT PRN PRN Reason: Shortness Of Breath/wheezing Enoxaparin Sodium (Lovenox) 40 mg SUBCUT Q24H TAMMIE Folic Acid (Folic Acid) 1 mg PO DAILY [facility] Sodium Chloride (Normal Saline) 1,000 mls @ 125 mls/hr IV STAT [facility] Last Admin: 06/22/17 16:22 Dose: 125 mls/hr Piperacillin Sod/Tazobactam (Sod 3.375 gm/ Sodium Chloride) 50 mls @ 100 mls/ hr IV Q8H [facility] Last Admin: 06/22/17 19:36 Dose: 100 mls/hr Lorazepam (Ativan) 1 mg PO QID [facility]; Protocol Morphine Sulfate (Morphine) 2 mg IVPUSH Q2H PRN PRN Reason: Pain (severe 7-10) Stop: 06/23/17 18:17 Ondansetron HCl (Zofran) 4 mg IVPUSH Q4H PRN PRN Reason: Nausea Oxycodone HCl (Oxycodone) 5 mg PO Q4H PRN PRN Reason: Pain (moderate 4-6) Pantoprazole Sodium (Protonix) 40 mg PO DAILY [facility] Last Admin: 06/22/17 19:06 Dose: Not Given Sodium Chloride (Saline Flush) 10 ml FLUSH ASDIRECTED PRN PRN Reason: Keep Vein Open Sodium Chloride (Saline Flush) 2.5 ml FLUSH ASDIRECTED PRN PRN Reason: Keep Vein Open Thiamine HCl (Vitamin B-1) 100 mg PO BEDTIME [facility] Labs: Laboratory Tests 06/22/17 06/22/17 Range/Units 15:33 15:33 WBC 18.16 H (4.0-11.0) K/uL RBC 5.23 (4.50-5.90) M/uL Hgb 15.0 (13.0-17.0) g/dL Hct 44.4 (38.0-50.0) % MCV 84.9 (80.0-98.0) fL MCH 28.7 (27.0-32.0) pg MCHC 33.8 (31.0-37.0) g/dL RDW Std Deviation 46.4 (28.0-62.0) fl RDW Coeff of Jennifer 15 (11.0-15.0) % Plt Count 343 (150-400) K/uL MPV 9.20 (7.40-12.00) fL Add Manual Diff YES Neutrophils % (Manual) 76 (48.0-80.0) % Lymphocytes % (Manual) 14 L (16.0-40.0) % Monocytes % (Manual) 9 (0.0-15.0) % Eosinophils % (Manual) 1 (0.0-7.0) % Nucleated RBC % 0.0 /100WBC Absolute Seg Neuts 13.8 H (1.4-5.7) Lymphocytes # (Manual) 2.5 H (0.6-2.4) Monocytes # (Manual) 1.6 H (0.0-0.8) Eosinophils # (Manual) 0.2 (0.0-0.7) Nucleated RBCs # 0 K/uL Sodium 148 (136-148) mmol/L Potassium 4.0 (3.5-5.1) mmol/L Chloride 112 H (98-107) mmol/L Carbon Dioxide 22.3 (21.0-32.0) mmol/L BUN 8 (7.0-18.0) mg/dL Creatinine 1.0 (0.8-1.3) mg/dL Est Cr Clr Drug Dosing TNP Estimated GFR (MDRD) > 60.0 ml/min Glucose 141 H (74-106) mg/dL Calcium 8.5 (8.5-10.1) mg/dL Total Bilirubin 0.2 (0.2-1.0) mg/dL AST 50 H (15-37) IU/L ALT 80 H (14-63) IU/L Alkaline Phosphatase 71 (46-116) U/L Troponin I < 0.050 (0.000-0.056) ng/mL Total Protein 8.0 (6.4-8.2) g/dL Albumin 3.3 L (3.4-5.0) g/dL Globulin 4.7 H (2.0-3.5) g/dL Albumin/Globulin Ratio 0.7 L (1.3-2.8) Lipase 119 (73-393) U/L Meds: Medications Generic Name Dose Route Start Last Admin Trade Name Freq PRN Reason Stop Dose Admin Acetaminophen 650 mg 06/22/17 18:15 Tylenol PO Q4H PRN Pain (Mild 1-3)/fever Albuterol/Ipratropium 3 ml 06/22/17 18:15 Duoneb 3.0-0.5 Mg/3 Ml NEB Q4HRRT PRN Shortness Of Breath/wheezing Enoxaparin Sodium 40 mg 06/22/17 21:00 Lovenox SUBCUT Q24H TAMMIE Folic Acid 1 mg 06/22/17 20:30 Folic Acid PO DAILY TAMMIE Sodium Chloride 1,000 mls @ 125 mls/hr 06/22/17 16:00 06/22/17 16:22 Normal Saline IV 125 mls/hr STAT TAMMIE Administration Piperacillin Sod/Tazobactam 50 mls @ 100 mls/hr 06/22/17 18:00 06/22/17 19:36 Sod 3.375 gm/ Sodium Chloride IV 100 mls/hr Q8H TAMMIE Administration Lorazepam 1 mg 06/23/17 00:00 Ativan PO QID TAMMIE Protocol Morphine Sulfate 2 mg 06/22/17 18:15 Morphine IVPUSH 06/23/17 18:17 Q2H PRN Pain (severe 7-10) Ondansetron HCl 4 mg 06/22/17 18:15 Zofran IVPUSH Q4H PRN Nausea Oxycodone HCl 5 mg 06/22/17 18:15 Oxycodone PO Q4H PRN Pain (moderate 4-6) Pantoprazole Sodium 40 mg 06/22/17 18:30 06/22/17 19:06 Protonix PO Not Given DAILY TAMMIE Sodium Chloride 10 ml 06/22/17 18:15 Saline Flush FLUSH ASDIRECTED PRN Keep Vein Open Sodium Chloride 2.5 ml 06/22/17 18:15 Saline Flush FLUSH ASDIRECTED PRN Keep Vein Open Thiamine HCl 100 mg 06/22/17 21:00 Vitamin B-1 PO BEDTIME TAMMIE Discontinued Medications Generic Name Dose Route Start Last Admin Trade Name Matilde PRN Reason Stop Dose Admin Levofloxacin/Dextrose 750 mg/ 150 mls @ 100 mls/hr 06/22/17 16:19 06/22/17 16 :47 Premix IV 06/22/17 17:48 100 mls/hr ONETIME ONE Administration Lactated Ringer's 1,000 mls @ 1,000 mls/hr 06/22/17 18:41 06/22/17 18:56 Ringers, Lactated IV 06/22/17 19:40 1,000 mls/hr .BOLUS ONE Administration Thiamine HCl 100 mg/ Sodium 101 mls @ 202 mls/hr 06/22/17 20:26 Chloride IV 06/22/17 20:27 ONETIME ONE - Re-Assessments/Exams Free Text/Narrative Re-Assessment/Exam: 06/22/17 16:24 Discussion with MD Vj, hospitalist. History and ER course reviewed. Admit to ICU Departure - Departure Time of Disposition: 20:54 Disposition: Admitted As Inpatient 64 Condition: Fair Clinical Impression: Alcohol abuse Pneumonia Qualifiers: Pneumonia type: due to unspecified organism Laterality: left Lung location: lower lobe of lung Qualified Code(s): J18.1 - Lobar pneumonia, unspecified organism - Discharge Information
[2017-06-22 16:19] LABS: CHLORIDE,CL 112 mmol/L (98-107); SODIUM,NA 148 mmol/L (136-148)
[2017-06-22] MEDS ORDERED: Levofloxacin/Dextrose 5%-Water 750 MG in Premix Bag 1 BAG IV ONE (16:19)
--- NOTE | 2017-06-22 16:37 | CR ---
EXAMINATION: Portable chest radiograph. HISTORY: Pain. FINDINGS: The trachea is midline. The cardiomediastinal silhouette is within normal limits. No effusions or pne umothorax. Interstitial prominence again noted not significantly changed from prior radiographs. Left basilar atelectasis. Osseous structures appear unremarkable. IMPRESSION: Stable nonspecific interstitial prominence most notable within the lung bases. Etiology is uncertain.
[2017-06-22] MEDS ORDERED: Piperacillin/Tazobactam 3.375 GM in Sodium Chloride 0.9% 50 ML IV SCH (18:00)
[2017-06-22] MEDS ORDERED: Sodium Chloride 0.9% 2.5 ML Syringe FLUSH PRN (18:15)
[2017-06-22] MEDS ORDERED: Ondansetron 4 MG/2 ML SDV IVPUSH PRN (18:15)
[2017-06-22] MEDS ORDERED: Acetaminophen 325 MG Tab PO PRN (18:15)
[2017-06-22] MEDS ORDERED: oxyCODONE 5 MG Tab PO PRN (18:15)
[2017-06-22] MEDS ORDERED: Sodium Chloride 0.9% 10 ML Syringe FLUSH PRN (18:15)
[2017-06-22] MEDS ORDERED: Albuterol/Ipratropium 3.0-0.5 MG/3 ML Neb Soln NEB PRN (18:15)
[2017-06-22] MEDS ORDERED: Morphine 4 MG/ML Syringe IVPUSH PRN (18:15)
[2017-06-22] MEDS ORDERED: Pantoprazole 40 MG Tab.CR PO SCH (18:30)
[2017-06-22] MEDS ORDERED: Lactated Ringers 1,000 ML IV ONE (18:41)
[2017-06-22 19:10] VITALS: BP 114/69
[2017-06-22] MEDS ORDERED: Thiamine 100 MG in Sodium Chloride 0.9% 100 ML IV ONE (20:26)
[2017-06-22] MEDS ORDERED: Folic Acid 1 MG Tab PO SCH (20:30)
[2017-06-22] MEDS ORDERED: Enoxaparin 40 MG/0.4 ML Syringe SUBCUT SCH (21:00)
[2017-06-22] MEDS ORDERED: Thiamine 100 MG Tab PO SCH (21:00)
--- NOTE | 2017-06-22 22:35 | PCM.HP ---
H&P History of Present Illness - General Date of Service: 06/22/17 Admit Problem/Dx: Admission Diagnosis/Problem Admission Diagnosis/Problem Pneumonia Source of Information: Patient - History of Present Illness Initial Comments - Free Text/Narative: Patient 32 y old man who was admitted yesterday to ICU with pneumonia because of complains of alcohol intoxications and also c/o withdrawals symptoms , eloped from ICU in the afternoon and today he came back to Er via EMS because he felt he cant breath . He is on chronic treatment with ativan 1 mg po qid and also he drank alcohol at home. He came to [place] from [place] on Wednesday a last week and he was discharged from local hospital last week on , where he was treated for 7 days for pneumonia. Today patient states he had cough productive of yellow phlegm , fever 101 F, he also drank alcohol and took ativan.Patient was sent yesterday Levaquin 750 mg po daily to pharmacy Onset of Symptoms: Reports: Today Duration of Symptoms: Reports: Hour(s): Mid-Sternal Chest Pain Score (Numeric/FACES): 9 general Pain Score (Numeric/FACES): 10 - Related Data Allergies/Adverse Reactions: Allergies Allergy/AdvReac Type Severity Reaction Status Date / Time No Known Allergies Allergy Verified 06/23/17 02:06 Home Medications: Home Meds Pantoprazole Sodium [Protonix] 40 mg PO DAILY 06/21/17 [History] Prednisone [IJD: predniSONE] 20 mg PO ASDIRECTED 06/21/17 [History] Venlafaxine [Effexor XR] 75 mg PO DAILY 06/21/17 [History] Past Medical History - Past Health History Medical/Surgical History: Denies Medical/Surgical History HEENT History: Reports: None Cardiovascular History: Reports: Hypertension Respiratory History: Reports: Other (See Below) Other Respiratory History: pneumonia- recently hospitalized in [place] Gastrointestinal History: Reports: None Other Gastrointestinal History: states has liver failure Genitourinary History: Reports: None Musculoskeletal History: Reports: None Neurological History: Reports: Seizure, Other (See Below) Other Neuro History: alcohol withdrawl seizure in the past. Psychiatric History: Reports: Addiction, Anxiety Other Psychiatric History: etoh abuse, states " have gone through withdrawls in the past". when pt asked if this felt like withdrawls he stated "no". Anxiety and taking Ativan for it Endocrine/Metabolic History: Reports: Obesity/BMI 30+ Hematologic History: Reports: None Immunologic History: Reports: None Oncologic (Cancer) History: Reports: None Dermatologic History: Reports: None - Infectious Disease History Infectious Disease History: Reports: None - Past Surgical History Head Surgeries/Procedures: Reports: None HEENT Surgical History: Reports: None Cardiovascular Surgical History: Reports: None Respiratory Surgical History: Reports: None GI Surgical History: Reports: None Male Surgical History: Reports: None Neurological Surgical History: Reports: None Musculoskeletal Surgical History: Reports: None Oncologic Surgical History: Reports: None Social & Family History - Family History Family Medical History: Noncontributory Cardiac: Reports: [place] Neurological: Reports: TIA Psychiatric: Reports: Other (See Below) Other Psychiatric Family History: etoh abuse - Tobacco Use Smoking Status *Q: Current Status Unknown Second Hand Smoke Exposure: No - Caffeine Use Caffeine Use: Reports: None Caffeine Use Comment: pt unable to answer - Alcohol Use Days Per Week of Alcohol Use: 7 Number of Drinks Per Day: 8 Total Drinks Per Week: 56 Date of Last Drink: 06/22/17 Time of Last Drink: 12:00 - Recreational Drug Use Recreational Drug Use: No H&P Review of Systems - Review of Systems: Review Of Systems: See Below General: Reports: Fever, Chills HEENT: Reports: No Symptoms Pulmonary: Reports: Shortness of Breath, Cough, Sputum Gastrointestinal: Reports: No Symptoms Musculoskeletal: Reports: No Symptoms Skin: Reports: No Symptoms Psychiatric: Reports: Anxiety Neurological: Reports: No Symptoms Hematologic/Lymphatic: Reports: No Symptoms Immunologic: Reports: No Symptoms Exam - Exam Exam: See Below - Vital Signs Vital Signs: Last Vital Signs Temp 98.7 F 06/22/17 17:19 Pulse 100 06/22/17 19:00 Resp 24 H 06/22/17 19:00 BP 114/69 06/22/17 19:00 Pulse Ox 92 L 06/22/17 19:00 Weight: 221 lb 12.56 oz - Exam Quality Assessment: Supplemental Oxygen General: Alert, Oriented HEENT: Conjunctiva Clear Neck: Supple, Trachea Midline Lungs: Normal Respiratory Effort, Decreased Breath Sounds, Rhonchi Cardiovascular: Regular Rate, Regular Rhythm, Normal S1, Normal S2 GI/Abdominal Exam: Normal Bowel Sounds, Soft, Non-Tender, No Organomegaly, No Distention, No Abnormal Bruit Back Exam: Normal Inspection Extremities: Normal Inspection Skin: Warm, Dry, Intact Neurological: Cranial Nerves Intact Neuro Extensive - Mental Status: Alert, Oriented x3, Slow Response to Commands Neuro Extensive - Motor, Sensory, Reflexes: CN II-XII Intact Psychiatric: Alert, Anxious, Other (sedated) - Patient Data Lab Results Last 24 hrs: Laboratory Results - last 24 hr 06/22/17 06/22/17 Range/Units 15:33 15:33 WBC 18.16 H (4.0-11.0) K/uL RBC 5.23 (4.50-5.90) M/uL Hgb 15.0 (13.0-17.0) g/dL Hct 44.4 (38.0-50.0) % MCV 84.9 (80.0-98.0) fL MCH 28.7 (27.0-32.0) pg MCHC 33.8 (31.0-37.0) g/dL RDW Std Deviation 46.4 (28.0-62.0) fl RDW Coeff of Jennifer 15 (11.0-15.0) % Plt Count 343 (150-400) K/uL MPV 9.20 (7.40-12.00) fL Add Manual Diff YES Neutrophils % (Manual) 76 (48.0-80.0) % Lymphocytes % (Manual) 14 L (16.0-40.0) % Monocytes % (Manual) 9 (0.0-15.0) % Eosinophils % (Manual) 1 (0.0-7.0) % Nucleated RBC % 0.0 /100WBC Absolute Seg Neuts 13.8 H (1.4-5.7) Lymphocytes # (Manual) 2.5 H (0.6-2.4) Monocytes # (Manual) 1.6 H (0.0-0.8) Eosinophils # (Manual) 0.2 (0.0-0.7) Nucleated RBCs # 0 K/uL Sodium 148 (136-148) mmol/L Potassium 4.0 (3.5-5.1) mmol/L Chloride 112 H (98-107) mmol/L Carbon Dioxide 22.3 (21.0-32.0) mmol/L BUN 8 (7.0-18.0) mg/dL Creatinine 1.0 (0.8-1.3) mg/dL Est Cr Clr Drug Dosing TNP Estimated GFR (MDRD) > 60.0 ml/min Glucose 141 H (74-106) mg/dL Calcium 8.5 (8.5-10.1) mg/dL Total Bilirubin 0.2 (0.2-1.0) mg/dL AST 50 H (15-37) IU/L ALT 80 H (14-63) IU/L Alkaline Phosphatase 71 (46-116) U/L Troponin I < 0.050 (0.000-0.056) ng/mL Total Protein 8.0 (6.4-8.2) g/dL Albumin 3.3 L (3.4-5.0) g/dL Globulin 4.7 H (2.0-3.5) g/dL Albumin/Globulin Ratio 0.7 L (1.3-2.8) Lipase 119 (73-393) U/L Result Diagrams: 06/22/17 15:33 06/22/17 15:33 EKG INTERPRETATION EKG Date: 06/23/17 Rhythm: NSR - Problem List (1) Pneumonia due to gram-negative bacteria SNOMED Code(s): 201493893 ICD Code: J15.6 - PNEUMONIA DUE TO OTHER GRAM-NEGATIVE BACTERIA Status: Acute (2) Alcohol abuse SNOMED Code(s): 05575539 ICD Code: F10.10 - ALCOHOL ABUSE, UNCOMPLICATED Status: Acute (3) Alcohol withdrawal SNOMED Code(s): 883063882 ICD Code: F10.239 - ALCOHOL DEPENDENCE WITH WITHDRAWAL, UNSPECIFIED Status : Acute Priority: High Qualifiers: Complication of substance-induced condition: with perceptual disturbance Qualified Code(s): F10.232 - Alcohol dependence with withdrawal with perceptual disturbance Problem List Initiated/Reviewed/Updated: Yes Orders Last 24hrs: Active Orders 24 hr Category Date Time Status Patient Status [ADT] Routine ADT 06/22/17 18:15 Active Patient Status [ADT] Stat ADT 06/22/17 16:25 Active Bedrest Bedside Commode [RC] ASDIRECTED Care 06/22/17 18:15 Active Blood Glucose Check, Bedside [RC] WITHMEALSANDBED Care 06/22/17 18:15 Active CIWAA Assessment [RC] Q4H Care 06/22/17 18:27 Active EKG 12 Lead [EKG Documentation Completion] [RC] STAT Care 06/22/17 15:49 Active Oxygen Therapy [RC] PRN Care 06/22/17 18:15 Active Pulse Oximetry [RC] PRN Care 06/22/17 18:16 Active RT Aerosol Therapy [RC] ASDIRECTED Care 06/22/17 18:19 Active VTE/DVT Education [RC] PER UNIT ROUTINE Care 06/22/17 18:15 Active Vital Signs [RC] Q1H Care 06/22/17 18:15 Active Consult to Case Management [CONS] Routine Cons 06/22/17 18:15 Active Consult to [employer]at [employer]er [CONS] Routine Cons 06/22/17 18:15 Active CULTURE BLOOD [BC] Stat Lab 06/22/17 16:20 Received CULTURE BLOOD [BC] Stat Lab 06/22/17 16:20 Received INR,PT,PROTHROMBIN TIME [COAG] Routine Lab 06/23/17 05:00 Ordered Blood Culture x2 Reflex Set [OM.PC] Stat Oth 06/22/17 15:58 Ordered Peripheral IV Insertion Adult [OM.PC] Routine Oth 06/22/17 18:15 Ordered Sequential Compression Device [OM.PC] Per Unit Routine Oth 06/22/17 18:17 Ordered Resuscitation Status Routine Resus Stat 06/22/17 18:15 Ordered Assessment/Plan Comment:: pneumonia in a alcoholic patient likely due to GN bacteria- will start patient on zosyn 3.375 grams q 6 h f/up BC , sputum Cx alcohol withdrawal / alcohol intoxication: will start patient on CIWA potocol , thiamine and folic acid dvt prof : heparin sq
[2017-06-23] MEDS ORDERED: LORazepam 1 MG Tab PO SCH
== END 2017-06-22 20:32 | disposition left against medical advice (07) | DRG 194 ==
LOC: MW.ED 15:25 → MW.ICU 16:25
PROVIDERS: ADMIT Internal Medicine; ATTEND Internal Medicine
DX: J18.1 Lobar pneumonia, unspecified organism (principal); F10.239 Alcohol dependence with withdrawal, unspecified; I10 Essential (primary) hypertension; F41.9 Anxiety disorder, unspecified; F10.229 Alcohol dependence with intoxication, unspecified; Z79.899 Other long term (current) drug therapy
CPT/HCPCS: 36415; 71045; 71045-26; 80053; 83690; 84484; 85025; 87040; 93005; 96365; 99285-25; J1956; J2543; J7040; J7050; J7120

== ENCOUNTER 2017-06-23 02:04 | Emergency (ER) | payer MEDICAID ==
--- NOTE | 2017-06-23 02:08 | EDM.PDOC ---
ED HPI GENERAL MEDICAL PROBLEM - General Stated Complaint: AMBULANCE Time Seen by Provider: 06/23/17 02:05 - History of Present Illness INITIAL COMMENTS - FREE TEXT/NARRATIVE: HISTORY AND PHYSICAL: History of present illness: Patient 32-year-old male presents here with EMS and law enforcement for medical screening exam and medical clearance for police hold for detox parietal patient' s pulse oximetry is 91-92% he has no complaints Review of systems: As per history of present illness and below otherwise all systems reviewed and negative. Past medical history: As per history of present illness and as reviewed below otherwise noncontributory. Surgical history: As per history of present illness and as reviewed below otherwise noncontributory. Social history: No reported history of drug or alcohol abuse. Family history: As per history of present illness and as reviewed below otherwise noncontributory. Physical exam: HEENT: Atraumatic, normocephalic, pupils reactive, negative for conjunctival pallor or scleral icterus, mucous membranes moist, throat clear, neck supple, nontender, trachea midline. Lungs: Clear to auscultation, breath sounds equal bilaterally, chest nontender. Heart: S1S2, regular, negative for clicks, rubs, or JVD. Abdomen: Soft, nondistended, nontender. Negative for masses or hepatosplenomegaly. Negative for costovertebral tenderness. Pelvis: Stable nontender. Genitourinary: Deferred. Rectal: Deferred. Extremities: Atraumatic, negative for cords or calf pain. Neurovascular unremarkable. Neuro: Awake Follows commands moves all extremities nonfocal exam Diagnostics: None Therapeutics: None Impression: #1 medically clear for police hold/detox #2 alcohol abuse Definitive disposition and diagnosis as appropriate pending reevaluation and review of above. - Related Data Allergies Allergy/AdvReac Type Severity Reaction Status Date / Time No Known Allergies Allergy Verified 06/22/17 15:49 Home Meds: Home Meds Pantoprazole Sodium [Protonix] 40 mg PO DAILY 06/21/17 [History] Prednisone [IJD: predniSONE] 20 mg PO ASDIRECTED 06/21/17 [History] Venlafaxine [Effexor XR] 75 mg PO DAILY 06/21/17 [History] Past Medical History - Past Health History Medical/Surgical History: Denies Medical/Surgical History HEENT History: Reports: None Cardiovascular History: Reports: Hypertension Respiratory History: Reports: Other (See Below) Other Respiratory History: pneumonia- recently hospitalized in [place] Gastrointestinal History: Reports: None Other Gastrointestinal History: states has liver failure Genitourinary History: Reports: None Musculoskeletal History: Reports: None Neurological History: Reports: Seizure, Other (See Below) Other Neuro History: alcohol withdrawl seizure in the past. Psychiatric History: Reports: Addiction, Anxiety Other Psychiatric History: etoh abuse, states " have gone through withdrawls in the past". when pt asked if this felt like withdrawls he stated "no". Anxiety and taking Ativan for it Endocrine/Metabolic History: Reports: Obesity/BMI 30+ Hematologic History: Reports: None Immunologic History: Reports: None Oncologic (Cancer) History: Reports: None Dermatologic History: Reports: None - Infectious Disease History Infectious Disease History: Reports: None - Past Surgical History Head Surgeries/Procedures: Reports: None HEENT Surgical History: Reports: None Cardiovascular Surgical History: Reports: None Respiratory Surgical History: Reports: None GI Surgical History: Reports: None Male Surgical History: Reports: None Neurological Surgical History: Reports: None Musculoskeletal Surgical History: Reports: None Oncologic Surgical History: Reports: None Social & Family History - Family History Family Medical History: Noncontributory Cardiac: Reports: [place] Neurological: Reports: TIA Psychiatric: Reports: Other (See Below) Other Psychiatric Family History: etoh abuse - Tobacco Use Smoking Status *Q: Current Status Unknown Second Hand Smoke Exposure: No - Caffeine Use Caffeine Use: Reports: None Caffeine Use Comment: pt unable to answer - Alcohol Use Days Per Week of Alcohol Use: 7 Number of Drinks Per Day: 8 Total Drinks Per Week: 56 - Recreational Drug Use Recreational Drug Use: No ED ROS GENERAL - Review of Systems Review Of Systems: ROS reveals no pertinent complaints other than HPI. ED EXAM, GENERAL - Physical Exam Exam: See Below (The dictation) Departure - Departure Time of Disposition: 02:07 Disposition: Home, Self-Care 01 Condition: Good Clinical Impression: Alcohol abuse, Medical clearance for incarceration - Discharge Information Additional Instructions: The following information is given to patients seen in the emergency department who are being discharged to home. This information is to outline your options for follow-up care. We provide all patients seen in our emergency department with a follow-up referral. The need for follow-up, as well as the timing and circumstances, are variable depending upon the specifics of your emergency department visit. If you don't have a primary care physician on staff, we will provide you with a referral. We always advise you to contact your personal physician following an emergency department visit to inform them of the circumstance of the visit and for follow-up with them and/or the need for any referrals to a consulting specialist. The emergency department will also refer you to a specialist when appropriate. This referral assures that you have the opportunity for followup care with a specialist. All of these measure are taken in an effort to provide you with optimal care, which includes your followup. Under all circumstances we always encourage you to contact your private physician who remains a resource for coordinating your care. When calling for followup care, please make the office aware that this follow-up is from your recent emergency room visit. If for any reason you are refused follow-up, please contact the [facility] emergency department at and asked to speak to the emergency department charge nurse. Stop drinking follow-up primary medical doctor return as needed as discussed
[2017-06-23 02:12] VITALS: BP 118/64
== END 2017-06-23 02:23 ==
LOC: MW.ED 02:04
DX: F10.10 Alcohol abuse, uncomplicated (principal); E66.9 Obesity, unspecified; I10 Essential (primary) hypertension; Z79.899 Other long term (current) drug therapy
CPT/HCPCS: 99282; 99283

== ENCOUNTER 2017-06-24 23:15 | Emergency (ER) | payer MEDICAID ==
--- NOTE | 2017-06-24 23:20 | EDM.PDOC ---
ED HPI GENERAL MEDICAL PROBLEM - General Stated Complaint: ETOH Time Seen by Provider: 06/24/17 23:15 - History of Present Illness INITIAL COMMENTS - FREE TEXT/NARRATIVE: HISTORY AND PHYSICAL: History of present illness: Patient 32-year-old male with history of alcohol abuse who presents via paramedics he states he injured his ribs yesterday he denies any other trauma or concern. Review of systems: As per history of present illness and below otherwise all systems reviewed and negative. Past medical history: As per history of present illness and as reviewed below otherwise noncontributory. Surgical history: As per history of present illness and as reviewed below otherwise noncontributory. Social history: No reported history of drug or alcohol abuse. Family history: As per history of present illness and as reviewed below otherwise noncontributory. Physical exam: HEENT: Atraumatic, normocephalic, pupils reactive, negative for conjunctival pallor or scleral icterus, mucous membranes moist, throat clear, neck supple, nontender, trachea midline. Lungs: Clear to auscultation, breath sounds equal bilaterally, chest nontender. Heart: S1S2, regular, negative for clicks, rubs, or JVD. Abdomen: Soft, nondistended, nontender. Negative for masses or hepatosplenomegaly. Negative for costovertebral tenderness. Pelvis: Stable nontender. Genitourinary: Deferred. Rectal: Deferred. Extremities: Atraumatic, negative for cords or calf pain. Neurovascular unremarkable. Neuro: Awake, alert, oriented. Cranial nerves II through XII unremarkable. Cerebellum unremarkable. Motor and sensory unremarkable throughout. Exam nonfocal. Diagnostics: Chest x-ray Therapeutics: None Impression: #1 history of left rib injury #2 history of ethanol abuse Definitive disposition and diagnosis as appropriate pending reevaluation and review of above. - Related Data Allergies Allergy/AdvReac Type Severity Reaction Status Date / Time No Known Allergies Allergy Verified 06/23/17 02:06 Home Meds: Home Meds Pantoprazole Sodium [Protonix] 40 mg PO DAILY 06/21/17 [History] Prednisone [IJD: predniSONE] 20 mg PO ASDIRECTED 06/21/17 [History] Venlafaxine [Effexor XR] 75 mg PO DAILY 06/21/17 [History] Past Medical History - Past Health History Medical/Surgical History: Denies Medical/Surgical History HEENT History: Reports: None Cardiovascular History: Reports: Hypertension Respiratory History: Reports: Other (See Below) Other Respiratory History: pneumonia- recently hospitalized in [place] Gastrointestinal History: Reports: None Other Gastrointestinal History: states has liver failure Genitourinary History: Reports: None Musculoskeletal History: Reports: None Neurological History: Reports: Seizure, Other (See Below) Other Neuro History: alcohol withdrawl seizure in the past. Psychiatric History: Reports: Addiction, Anxiety Other Psychiatric History: etoh abuse, states " have gone through withdrawls in the past". when pt asked if this felt like withdrawls he stated "no". Anxiety and taking Ativan for it Endocrine/Metabolic History: Reports: Obesity/BMI 30+ Hematologic History: Reports: None Immunologic History: Reports: None Oncologic (Cancer) History: Reports: None Dermatologic History: Reports: None - Infectious Disease History Infectious Disease History: Reports: None - Past Surgical History Head Surgeries/Procedures: Reports: None HEENT Surgical History: Reports: None Cardiovascular Surgical History: Reports: None Respiratory Surgical History: Reports: None GI Surgical History: Reports: None Male Surgical History: Reports: None Neurological Surgical History: Reports: None Musculoskeletal Surgical History: Reports: None Oncologic Surgical History: Reports: None Social & Family History - Family History Family Medical History: Noncontributory Cardiac: Reports: [place] Neurological: Reports: TIA Psychiatric: Reports: Other (See Below) Other Psychiatric Family History: etoh abuse - Tobacco Use Smoking Status *Q: Current Status Unknown Second Hand Smoke Exposure: No - Caffeine Use Caffeine Use: Reports: None Caffeine Use Comment: pt unable to answer - Alcohol Use Days Per Week of Alcohol Use: 7 Number of Drinks Per Day: 8 Total Drinks Per Week: 56 - Recreational Drug Use Recreational Drug Use: No ED ROS GENERAL - Review of Systems Review Of Systems: ROS reveals no pertinent complaints other than HPI. ED EXAM, GENERAL - Physical Exam Exam: See Below (dictation) Departure - Departure Time of Disposition: 23:17 Disposition: Home, Self-Care 01 Condition: Good Clinical Impression: Encounter for medical screening examination, Alcohol abuse - Discharge Information Additional Instructions: The following information is given to patients seen in the emergency department who are being discharged to home. This information is to outline your options for follow-up care. We provide all patients seen in our emergency department with a follow-up referral. The need for follow-up, as well as the timing and circumstances, are variable depending upon the specifics of your emergency department visit. If you don't have a primary care physician on staff, we will provide you with a referral. We always advise you to contact your personal physician following an emergency department visit to inform them of the circumstance of the visit and for follow-up with them and/or the need for any referrals to a consulting specialist. The emergency department will also refer you to a specialist when appropriate. This referral assures that you have the opportunity for followup care with a specialist. All of these measure are taken in an effort to provide you with optimal care, which includes your followup. Under all circumstances we always encourage you to contact your private physician who remains a resource for coordinating your care. When calling for followup care, please make the office aware that this follow-up is from your recent emergency room visit. If for any reason you are refused follow-up, please contact the [facility] emergency department at and asked to speak to the emergency department charge nurse. Follow-up primary medical doctor as needed as discussed return as needed as discussed avoid alcohol as discussed
[2017-06-24 23:21] VITALS: BP 112/89
--- NOTE | 2017-06-25 16:35 | CR ---
EXAM DATE: 06/24/17 PATIENT'S AGE: 32 Patient: ISAAK HARDWICK Facility: [place], [place] Site . Site : 1985 Study: XRay Chest [id number]/[id number] 11:37:10 PM Ordering Physician: Danisha Shafer Final Report: INDICATION: ETOH status post fall. Left-sided rib pain. TECHNIQUE: Chest radiograph 1 view COMPARISON: 06/22/2017. FINDINGS: Cardiovascular and mediastinum: The heart silhouette is normal in size and morphology. The mediastinum is normal in appearance. Lungs and pleural spaces: Both lungs are unremarkable in appearance. No sign of pleural effusion seen. No pneumothorax is identified. Bones and soft tissues: No significant findings. IMPRESSION: 1. No acute cardiopulmonary disease is seen. Dictated by Silvio Degroot MD @ 06/24/2017 11:42:45 PM Dictated by: Silvio Degroot MD @ 06/24/2017 23:42:53 (Electronic Signature) Report Signed by Proxy. [facility]IT[facility]
== END 2017-06-25 00:02 | disposition home or self-care (01) ==
LOC: MW.ED 23:15
DX: S29.9XXA Unspecified injury of thorax, initial encounter (principal); F10.10 Alcohol abuse, uncomplicated; I10 Essential (primary) hypertension; Z79.899 Other long term (current) drug therapy; W19.XXXA Unspecified fall, initial encounter
CPT/HCPCS: 71045; 71045-26; 99283

== ENCOUNTER 2017-06-27 22:31 | Emergency (ER) | payer MEDICAID ==
--- NOTE | 2017-06-27 22:49 | EDM.PDOC ---
ED HPI GENERAL MEDICAL PROBLEM - General Chief Complaint: Neuro Symptoms/Deficits Stated Complaint: WITHDRAW Time Seen by Provider: 06/27/17 22:49 Source of Information: Reports: Patient - History of Present Illness INITIAL COMMENTS - FREE TEXT/NARRATIVE: HISTORY AND PHYSICAL: History of present illness: []Patient presents with alcohol intoxication knee admits to drinking 4 beers today since noon alcohol level is 0.29 He has a history of alcohol use abuse and dependence today he said he fell down and was concerned about seizure activity as he has had seizures with withdrawal however he is alert interactive responds appropriately no post ictal state he is clinically intoxicated Denies fever nausea vomiting chills sweats no chest pain shortness breath headache dizziness palpitation no bowel or urine symptoms denies head injury or loss of consciousness Review of systems: As per history of present illness and below otherwise all systems reviewed and negative. Past medical history: As per history of present illness and as reviewed below otherwise noncontributory. Surgical history: As per history of present illness and as reviewed below otherwise noncontributory. Social history: No reported history of drug or alcohol abuse. Family history: As per history of present illness and as reviewed below otherwise noncontributory. Physical exam: HEENT: Atraumatic, normocephalic, pupils reactive, negative for conjunctival pallor or scleral icterus, mucous membranes moist, throat clear, neck supple, nontender, trachea midline. Lungs: Clear to auscultation, breath sounds equal bilaterally, chest nontender. Heart: S1S2, regular, negative for clicks, rubs, or JVD. Abdomen: Soft, nondistended, nontender. Negative for masses or hepatosplenomegaly. Negative for costovertebral tenderness. Pelvis: Stable nontender. Genitourinary: Deferred. Rectal: Deferred. Extremities: Atraumatic, negative for cords or calf pain. Neurovascular unremarkable. Neuro: Awake, alert, oriented. Cranial nerves II through XII unremarkable. Cerebellum unremarkable. Motor and sensory unremarkable throughout. Exam nonfocal. Diagnostics: [CBC CMP alcohol level EKG ] Therapeutics: [ detox ] Impression: [] alcohol intoxication Definitive disposition and diagnosis as appropriate pending reevaluation and review of above. mid-back Pain Score (Numeric/FACES): 9 - Related Data Allergies Allergy/AdvReac Type Severity Reaction Status Date / Time No Known Allergies Allergy Verified 06/27/17 22:55 Home Meds: Home Meds Venlafaxine [Effexor XR] 75 mg PO DAILY 06/21/17 [History] Past Medical History - Past Health History Medical/Surgical History: Denies Medical/Surgical History HEENT History: Reports: None Cardiovascular History: Reports: Hypertension Respiratory History: Reports: Other (See Below) Other Respiratory History: pneumonia- recently hospitalized in [place] Gastrointestinal History: Reports: None Other Gastrointestinal History: states has liver failure Genitourinary History: Reports: None Musculoskeletal History: Reports: None Neurological History: Reports: Seizure, Other (See Below) Other Neuro History: alcohol withdrawl seizure in the past. Psychiatric History: Reports: Addiction, Anxiety Other Psychiatric History: etoh abuse, states " have gone through withdrawls in the past". when pt asked if this felt like withdrawls he stated "no". Anxiety and taking Ativan for it Endocrine/Metabolic History: Reports: Obesity/BMI 30+ Hematologic History: Reports: None Immunologic History: Reports: None Oncologic (Cancer) History: Reports: None Dermatologic History: Reports: None - Infectious Disease History Infectious Disease History: Reports: None - Past Surgical History Head Surgeries/Procedures: Reports: None HEENT Surgical History: Reports: None Cardiovascular Surgical History: Reports: None Respiratory Surgical History: Reports: None GI Surgical History: Reports: None Male Surgical History: Reports: None Neurological Surgical History: Reports: None Musculoskeletal Surgical History: Reports: None Oncologic Surgical History: Reports: None Social & Family History - Family History Family Medical History: Noncontributory Cardiac: Reports: [place] Neurological: Reports: TIA Psychiatric: Reports: Other (See Below) Other Psychiatric Family History: etoh abuse - Tobacco Use Smoking Status *Q: Unknown Ever Smoked Second Hand Smoke Exposure: No - Caffeine Use Caffeine Use: Reports: None Caffeine Use Comment: pt unable to answer - Alcohol Use Days Per Week of Alcohol Use: 7 Number of Drinks Per Day: 8 Total Drinks Per Week: 56 - Recreational Drug Use Recreational Drug Use: No ED ROS GENERAL - Review of Systems Review Of Systems: ROS reveals no pertinent complaints other than HPI. ED EXAM, GENERAL - Physical Exam Exam: See Below Course - Vital Signs Last Recorded V/S: Last Vital Signs Temp 97 F 06/27/17 22:31 Pulse 107 H 06/27/17 22:31 Resp 18 06/27/17 22:31 BP 142/99 H 06/27/17 22:31 Pulse Ox 95 06/27/17 22:31 - Orders/Labs/Meds Orders: Active Orders 24 hr Category Date Time Status EKG 12 Lead [EKG Documentation Completion] [RC] STAT Care 06/27/17 22:47 Active Labs: Laboratory Tests 06/27/17 06/27/17 06/27/17 Range/Units 23:03 23:03 23:03 WBC 12.17 H (4.0-11.0) K/uL RBC 5.97 H (4.50-5.90) M/uL Hgb 17.3 H (13.0-17.0) g/dL Hct 49.8 (38.0-50.0) % MCV 83.4 (80.0-98.0) fL MCH 29.0 (27.0-32.0) pg MCHC 34.7 (31.0-37.0) g/dL RDW Std Deviation 45.2 (28.0-62.0) fl RDW Coeff of Jennifer 15 (11.0-15.0) % Plt Count 310 (150-400) K/uL MPV 8.90 (7.40-12.00) fL Neut % (Auto) 62.5 (48.0-80.0) % Lymph % (Auto) 30.8 (16.0-40.0) % [place] % (Auto) 5.4 (0.0-15.0) % Eos % (Auto) 1.0 (0.0-7.0) % Baso % (Auto) 0.3 (0.0-1.5) % Neut # (Auto) 7.6 H (1.4-5.7) K/uL Lymph # (Auto) 3.8 H (0.6-2.4) K/uL [place] # (Auto) 0.7 (0.0-0.8) K/uL Eos # (Auto) 0.1 (0.0-0.7) K/uL Baso # (Auto) 0.0 (0.0-0.1) K/uL Nucleated RBC % 0.0 /100WBC Nucleated RBCs # 0 K/uL Sodium 136 (136-148) mmol/L Potassium 4.2 (3.5-5.1) mmol/L Chloride 98 (98-107) mmol/L Carbon Dioxide 19.8 L (21.0-32.0) mmol/L BUN 10 (7.0-18.0) mg/dL Creatinine 1.1 (0.8-1.3) mg/dL Est Cr Clr Drug Dosing TNP Estimated GFR (MDRD) > 60.0 ml/min Glucose 99 (74-106) mg/dL Calcium 8.9 (8.5-10.1) mg/dL Total Bilirubin 0.8 (0.2-1.0) mg/dL AST 40 H (15-37) IU/L ALT 52 (14-63) IU/L Alkaline Phosphatase 99 (46-116) U/L Total Protein 8.7 H (6.4-8.2) g/dL Albumin 3.7 (3.4-5.0) g/dL Globulin 5.0 H (2.0-3.5) g/dL Albumin/Globulin Ratio 0.7 L (1.3-2.8) Ethyl Alcohol 292 mg/dL Departure - Departure Time of Disposition: 00:21 Disposition: Home, Self-Care 01 Condition: Good Clinical Impression: Alcohol intoxication Qualifiers: Complication of substance-induced condition: uncomplicated Qualified Code(s): F10.920 - Alcohol use, unspecified with intoxication, uncomplicated - Discharge Information Referrals: PCP,Unknown [Primary Care Provider] - Forms: ED Department Discharge Additional Instructions: The following information is given to patients seen in the emergency department who are being discharged to home. This information is to outline your options for follow-up care. We provide all patients seen in our emergency department with a follow-up referral. The need for follow-up, as well as the timing and circumstances, are variable depending upon the specifics of your emergency department visit. If you don't have a primary care physician on staff, we will provide you with a referral. We always advise you to contact your personal physician following an emergency department visit to inform them of the circumstance of the visit and for follow-up with them and/or the need for any referrals to a consulting specialist. The emergency department will also refer you to a specialist when appropriate. This referral assures that you have the opportunity for follow-up care with a specialist. All of these measure are taken in an effort to provide you with optimal care, which includes your follow-up. Under all circumstances we always encourage you to contact your private physician who remains a resource for coordinating your care. When calling for follow-up care, please make the office aware that this follow-up is from your recent emergency room visit. If for any reason you are refused follow-up, please contact the [facility] emergency department at and asked to speak to the emergency department charge nurse. - My Orders Last 24 Hours: My Active Orders 06/27/17 22:47 EKG 12 Lead [EKG Documentation Completion] [RC] STAT - Assessment/Plan Last 24 Hours: My Active Orders 06/27/17 22:47 EKG 12 Lead [EKG Documentation Completion] [RC] STAT
[2017-06-27 23:29] LABS: CHLORIDE,CL 98 mmol/L (98-107); SODIUM,NA 136 mmol/L (136-148)
[2017-06-28 00:42] VITALS: BP 148/92
== END 2017-06-28 00:39 | disposition home or self-care (01) ==
LOC: MW.ED 22:31
DX: F10.129 Alcohol abuse with intoxication, unspecified (principal); I10 Essential (primary) hypertension; Y90.8 Blood alcohol level of 240 mg/100 ml or more; Z79.899 Other long term (current) drug therapy
CPT/HCPCS: 36415; 80053; 85025; 93005; 99284; G0480

== ENCOUNTER 2017-06-28 12:22 | Emergency (ER) | payer MEDICAID ==
[2017-06-28] MEDS ORDERED: Sodium Chloride 0.9% 2.5 ML Syringe FLUSH PRN (12:37)
[2017-06-28] MEDS ORDERED: Sodium Chloride 0.9% 10 ML Syringe FLUSH PRN (12:37)
[2017-06-28] MEDS ORDERED: Ondansetron 4 MG/2 ML SDV IVPUSH ONE (12:38)
[2017-06-28] MEDS ORDERED: Pantoprazole 40 MG Vial IVPUSH ONE (12:38)
[2017-06-28] MEDS ORDERED: LORazepam 2 MG/ML SDV IVPUSH ONE (12:38)
[2017-06-28] MEDS ORDERED: Pantoprazole 80 MG in Sodium Chloride 0.9% 100 ML IV SCH (12:45)
--- NOTE | 2017-06-28 12:45 | EDM.PDOC ---
ED HPI GENERAL MEDICAL PROBLEM - General Chief Complaint: Behavioral/Psych Stated Complaint: nausea and vomiting Time Seen by Provider: 06/28/17 12:38 - History of Present Illness INITIAL COMMENTS - FREE TEXT/NARRATIVE: HISTORY AND PHYSICAL: History of present illness: Patient is a 32-year-old male who is well known by this provider as well as the ER staff for multiple ER visits for alcohol intoxication alcohol complications and medical clearance exams who presents via EMS from the care home/detox where he was placed last evening with intractable vomiting. Patient says he drank at all yesterday and his last drink was 3 PM yesterday and he was here last evening and was transferred to detox were he began having intractable vomiting last evening, "50 times" initially just fluid and food and then vomiting emesis with blood. The nurse from the care home to call us to say that she did see the vomit and there was blood in it. The patient says his stomach is cramping up due to the numerous times he has vomited but he has had no diarrhea or black or bloody stools. He feels shaky and says he has not had his Ativan which he normally takes. He was recently started on Effexor which she has not started yet and the patient had a recent admission in [place], where he is from, for similar symptoms as well as pneumonia. The patient says that he has done detox programs in the past and plans to go back to [place] to do another program. He denies drug use and has no GI surgical history or GI history other than his alcohol abuse. The patient does have a history of an admission to our ED and a transfer due to acute liver failure but he says that according to the doctors in [place] his liver has recovered. The patient says he still feels nauseated and shaky and has abdominal cramping which is diffuse but has not passed out or blacked out and has not hit his head. Patient says that in the ED he does not feel lightheaded or dizzy and does not feel he can pass out. He denies any chest pain or shortness of breath and no fever chills or upper respiratory symptoms. Review of systems: As per history of present illness and below otherwise all systems reviewed and negative. Past medical history: As per history of present illness and as reviewed below otherwise noncontributory. Surgical history: As per history of present illness and as reviewed below otherwise noncontributory. Social history: No reported history of drug or alcohol abuse. Family history: As per history of present illness and as reviewed below otherwise noncontributory. Physical exam: General: Well-developed well-nourished mildly overweight man who is nontoxic and vital signs are noted by me ;there is a smell of ketones on his breath. The patient is speaking clearly and easily there is no smell of alcohol on his breath HEENT: Atraumatic, normocephalic, pupils reactive, clear or slightly injected, negative for conjunctival pallor or scleral icterus, mucous membranes tacky, throat clear, neck supple, nontender, trachea midline. Lungs: Clear to auscultation, breath sounds equal bilaterally, chest nontender. Heart: S1S2, regular, rhythm and tachycardic rate of my evaluation, no overt murmurs are appreciated Abdomen: Soft, nondistended, bowel sounds are hypoactive and there is diffuse abdominal tenderness without localization right or left or upper or lower abdomen. It is mild in character and there is no rebound or guarding. Negative for masses or hepatosplenomegaly. Negative for costovertebral tenderness. Pelvis: Stable nontender. Genitourinary: Deferred. Rectal: Deferred. Extremities: Atraumatic, negative for cords or calf pain. Neurovascular unremarkable. Full range of motion without defects or deficits Neuro: Awake, alert, oriented. Cranial nerves II through XII unremarkable. Cerebellum unremarkable. Motor and sensory unremarkable throughout. Exam nonfocal. The patient has slight tremulousness Skin: Turgor is normal and there are no overt rashes or lesions, the patient has facial diaphoresis Diagnostics: EKG CBC CMP amylase lipase magnesium level INR alcohol level UA UDS type and screen Therapeutics: IV O2 monitor IV fluids Protonix Zofran Ativan GI cocktail magnesium 1340: After medication the patient is all in her vomiting and has diminished cramping is much more comfortable in the room. We're currently awaiting the remainder of the testing results for disposition 1415: Heart rate currently is 83 and his magnesium level is noted to be 1.3 so I will give a magnesium rider. Patient is still resting comfortably and I will discuss with him all testing results and care plan. 1430: I discussed all testing results with the patient including his WBC count of 20,000 and per the computer he had an elevated white cell count several days ago when he was admitted and left AMA. He is aware of my concerns regarding this number and the need for this to get followed up. Discussed outpatient versus inpatient care and at this point the patient does not want to be admitted to the hospital and has a place to stay with a friend who is a recovering alcoholic. He is awake alert and competent and looks significantly improved from arrival. He speaking clearly and easily and is clinically competent. The patient says he is going to try to get back to [place] in the next 1-2 days so he can enter a treatment program back at home or he has some support network. I will give him Prevacid and Zofran for home as well as a few Ativan tablets as this will help him get through any withdrawal symptoms. He is comfortable with this care plan and he is aware that I cannot give him more than just a few of these medications I've advised him on reasons to return to the ED and to avoid alcohol use as well as eat a bland diet. Impression: Abdominal pain/vomiting with hematemesis, recent alcohol use and alcohol abuse stable; leukocytosis with history of same Definitive disposition and diagnosis as appropriate pending reevaluation and review of above. Generalized Pain Score (Numeric/FACES): 9 - Related Data Allergies Allergy/AdvReac Type Severity Reaction Status Date / Time No Known Allergies Allergy Verified 06/28/17 12:24 Home Meds: Home Meds Venlafaxine [Effexor XR] 75 mg PO DAILY 06/21/17 [History] Past Medical History - Past Health History Medical/Surgical History: Denies Medical/Surgical History HEENT History: Reports: None Cardiovascular History: Reports: Hypertension Respiratory History: Reports: Other (See Below) Other Respiratory History: pneumonia- recently hospitalized in [place] Gastrointestinal History: Reports: None Other Gastrointestinal History: states has liver failure Genitourinary History: Reports: None Musculoskeletal History: Reports: None Neurological History: Reports: Seizure, Other (See Below) Other Neuro History: alcohol withdrawl seizure in the past. Psychiatric History: Reports: Addiction, Anxiety Other Psychiatric History: etoh abuse, states " have gone through withdrawls in the past". when pt asked if this felt like withdrawls he stated "no". Anxiety and taking Ativan for it Endocrine/Metabolic History: Reports: Obesity/BMI 30+ Hematologic History: Reports: None Immunologic History: Reports: None Oncologic (Cancer) History: Reports: None Dermatologic History: Reports: None - Infectious Disease History Infectious Disease History: Reports: None - Past Surgical History Head Surgeries/Procedures: Reports: None HEENT Surgical History: Reports: None Cardiovascular Surgical History: Reports: None Respiratory Surgical History: Reports: None GI Surgical History: Reports: None Male Surgical History: Reports: None Neurological Surgical History: Reports: None Musculoskeletal Surgical History: Reports: None Oncologic Surgical History: Reports: None Social & Family History - Family History Family Medical History: Noncontributory Cardiac: Reports: [place] Neurological: Reports: [place] Psychiatric: Reports: Other (See Below) Other Psychiatric Family History: etoh abuse - Tobacco Use Smoking Status *Q: Unknown Ever Smoked Second Hand Smoke Exposure: No - Caffeine Use Caffeine Use: Reports: None Caffeine Use Comment: pt unable to answer - Alcohol Use Days Per Week of Alcohol Use: 7 Number of Drinks Per Day: 8 Total Drinks Per Week: 56 - Recreational Drug Use Recreational Drug Use: No ED ROS GENERAL - Review of Systems Review Of Systems: ROS reveals no pertinent complaints other than HPI. ED EXAM, GENERAL - Physical Exam Exam: See Below (See dictation) Course - Vital Signs Last Recorded V/S: Last Vital Signs Temp 36.4 C 06/28/17 12:26 Pulse 83 06/28/17 14:16 Resp 18 06/28/17 14:16 BP 120/82 06/28/17 14:03 Pulse Ox 95 06/28/17 14:16 - Orders/Labs/Meds Orders: Active Orders 24 hr Category Date Time Status EKG Documentation Completion [RC] STAT Care 06/28/17 12:37 Active Oxygen Therapy, ED [RC] ASDIRECTED Care 06/28/17 12:37 Active Pulse Oximetry [RC] ASDIRECTED Care 06/28/17 12:37 Active DRUG SCREEN, URINE [URCHEM] Stat Lab 06/28/17 12:44 Ordered UA W/MICROSCOPIC [URIN] Stat Lab 06/28/17 12:44 Ordered Magnesium Sulfate [Magnesium Sulfate 50%] 1 gm Med 06/28/17 14:30 Active Sodium Chloride 0.9% [Normal Saline] 50 ml IV ONETIME Sodium Chloride 0.9% [Normal Saline] 1,000 ml Med 06/28/17 13:53 Active IV STAT Sodium Chloride 0.9% [Saline Flush] Med 06/28/17 12:37 Active 10 ml FLUSH ASDIRECTED PRN Sodium Chloride 0.9% [Saline Flush] Med 06/28/17 12:37 Active 2.5 ml FLUSH ASDIRECTED PRN Saline Lock Insert [OM.PC] Stat Oth 06/28/17 12:37 Ordered Medication Orders Sodium Chloride (Normal Saline) 1,000 mls @ 999 mls/hr IV STAT ONE Stop: 06/28/17 14:53 Last Admin: 06/28/17 13:57 Dose: Not Given Magnesium Sulfate 1 gm/ Sodium (Chloride) 52 mls @ 104 mls/hr IV ONETIME ONE Stop: 06/28/17 14:59 Last Admin: 06/28/17 14:29 Dose: 104 mls/hr Sodium Chloride (Saline Flush) 10 ml FLUSH ASDIRECTED PRN PRN Reason: Keep Vein Open Last Admin: 06/28/17 12:55 Dose: 10 ml Sodium Chloride (Saline Flush) 2.5 ml FLUSH ASDIRECTED PRN PRN Reason: Keep Vein Open Last Admin: 06/28/17 12:55 Dose: 2.5 ml Labs: Laboratory Tests 06/28/17 06/28/17 06/28/17 Range/Units 12:44 12:44 13:20 WBC 20.53 H (4.0-11.0) K/uL RBC 5.50 (4.50-5.90) M/uL Hgb 15.6 (13.0-17.0) g/dL Hct 45.7 (38.0-50.0) % MCV 83.1 (80.0-98.0) fL MCH 28.4 (27.0-32.0) pg MCHC 34.1 (31.0-37.0) g/dL RDW Std Deviation 45.1 (28.0-62.0) fl RDW Coeff of Jennifer 15 (11.0-15.0) % Plt Count 275 (150-400) K/uL MPV 9.30 (7.40-12.00) fL Neut % (Auto) 89.3 H (48.0-80.0) % Lymph % (Auto) 5.0 L (16.0-40.0) % [place] % (Auto) 5.5 (0.0-15.0) % Eos % (Auto) 0.0 (0.0-7.0) % Baso % (Auto) 0.2 (0.0-1.5) % Neut # (Auto) 18.3 H (1.4-5.7) K/uL Lymph # (Auto) 1.0 (0.6-2.4) K/uL [place] # (Auto) 1.1 H (0.0-0.8) K/uL Eos # (Auto) 0.0 (0.0-0.7) K/uL Baso # (Auto) 0.0 (0.0-0.1) K/uL INR Sodium (136-148) mmol/L Potassium (3.5-5.1) mmol/L Chloride (98-107) mmol/L Carbon Dioxide (21.0-32.0) mmol/L BUN (7.0-18.0) mg/dL Creatinine (0.8-1.3) mg/dL Est Cr Clr Drug Dosing mL/min Estimated GFR (MDRD) ml/min Glucose (74-106) mg/dL Calcium (8.5-10.1) mg/dL Magnesium (1.5-2.0) mg/dL Total Bilirubin (0.2-1.0) mg/dL AST (15-37) IU/L ALT (14-63) IU/L Alkaline Phosphatase (46-116) U/L Total Protein (6.4-8.2) g/dL Albumin (3.4-5.0) g/dL Globulin (2.0-3.5) g/dL Albumin/Globulin Ratio (1.3-2.8) Amylase (25-115) U/L Lipase (73-393) U/L Urine Color DARK YELLOW Urine Appearance SLT CLOUDY Urine pH 5.5 (5.0-8.0) Ur Specific [place] >= 1.030 (1.001-1.035) Urine Protein 100 (NEGATIVE) mg/dL Urine Glucose (UA) NEGATIVE (NEGATIVE) mg/dL Urine Ketones 15 H (NEGATIVE) mg/dL Urine Occult Blood TRACE-LYSED (NEGATIVE) Urine Nitrite NEGATIVE (NEGATIVE) Urine Bilirubin MODERATE H (NEGATIVE) Urine Ictotest NEGATIVE Urine Urobilinogen 0.2 (<2.0) EU/dL Ur Leukocyte Esterase NEGATIVE (NEGATIVE) Urine RBC 0-2 (0-2/HPF) Urine WBC 0-2 (0-5/HPF) Ur Epithelial Cells FEW (NONE-FEW) Amorphous Sediment LIGHT (NEGATIVE) Urine Bacteria FEW (NEGATIVE) Urine Mucus MANY (NONE-MOD) Urine Opiates Screen NEGATIVE (NEGATIVE) Ur Oxycodone Screen NEGATIVE (NEGATIVE) Urine Methadone Screen NEGATIVE (NEGATIVE) Ur Barbiturates Screen NEGATIVE (NEGATIVE) Ur Phencyclidine Scrn NEGATIVE (NEGATIVE) Ur Amphetamine Screen NEGATIVE (NEGATIVE) U Methamphetamines Scrn NEGATIVE (NEGATIVE) U Benzodiazepines Scrn POSITIVE (NEGATIVE) U Cocaine Metab Screen NEGATIVE (NEGATIVE) U Marijuana (THC) Screen NEGATIVE (NEGATIVE) Ethyl Alcohol mg/dL Blood Type Antibody Screen 06/28/17 06/28/17 06/28/17 Range/Units 13:20 13:20 13:20 WBC (4.0-11.0) K/uL RBC (4.50-5.90) M/uL Hgb (13.0-17.0) g/dL Hct (38.0-50.0) % MCV (80.0-98.0) fL MCH (27.0-32.0) pg MCHC (31.0-37.0) g/dL RDW Std Deviation (28.0-62.0) fl RDW Coeff of Jennifer (11.0-15.0) % Plt Count (150-400) K/uL MPV (7.40-12.00) fL Neut % (Auto) (48.0-80.0) % Lymph % (Auto) (16.0-40.0) % [place] % (Auto) (0.0-15.0) % Eos % (Auto) (0.0-7.0) % Baso % (Auto) (0.0-1.5) % Neut # (Auto) (1.4-5.7) K/uL Lymph # (Auto) (0.6-2.4) K/uL [place] # (Auto) (0.0-0.8) K/uL Eos # (Auto) (0.0-0.7) K/uL Baso # (Auto) (0.0-0.1) K/uL INR 1.16 Sodium 135 L (136-148) mmol/L Potassium 4.3 (3.5-5.1) mmol/L Chloride 97 L (98-107) mmol/L Carbon Dioxide 17.4 L (21.0-32.0) mmol/L BUN 14 (7.0-18.0) mg/dL Creatinine 1.1 (0.8-1.3) mg/dL Est Cr Clr Drug Dosing 94.62 mL/min Estimated GFR (MDRD) > 60.0 ml/min Glucose 91 (74-106) mg/dL Calcium 9.1 (8.5-10.1) mg/dL Magnesium 1.3 L (1.5-2.0) mg/dL Total Bilirubin 1.5 H (0.2-1.0) mg/dL AST 36 (15-37) IU/L ALT 44 (14-63) IU/L Alkaline Phosphatase 90 (46-116) U/L Total Protein 8.4 H (6.4-8.2) g/dL Albumin 3.8 (3.4-5.0) g/dL Globulin 4.6 H (2.0-3.5) g/dL Albumin/Globulin Ratio 0.8 L (1.3-2.8) Amylase 34 (25-115) U/L Lipase 137 (73-393) U/L Urine Color Urine Appearance Urine pH (5.0-8.0) Ur Specific [place] (1.001-1.035) Urine Protein (NEGATIVE) mg/dL Urine Glucose (UA) (NEGATIVE) mg/dL Urine Ketones (NEGATIVE) mg/dL Urine Occult Blood (NEGATIVE) Urine Nitrite (NEGATIVE) Urine Bilirubin (NEGATIVE) Urine Ictotest Urine Urobilinogen (<2.0) EU/dL Ur Leukocyte Esterase (NEGATIVE) Urine RBC (0-2/HPF) Urine WBC (0-5/HPF) Ur Epithelial Cells (NONE-FEW) Amorphous Sediment (NEGATIVE) Urine Bacteria (NEGATIVE) Urine Mucus (NONE-MOD) Urine Opiates Screen (NEGATIVE) Ur Oxycodone Screen (NEGATIVE) Urine Methadone Screen (NEGATIVE) Ur Barbiturates Screen (NEGATIVE) Ur Phencyclidine Scrn (NEGATIVE) Ur Amphetamine Screen (NEGATIVE) U Methamphetamines Scrn (NEGATIVE) U Benzodiazepines Scrn (NEGATIVE) U Cocaine Metab Screen (NEGATIVE) U Marijuana (THC) Screen (NEGATIVE) Ethyl Alcohol 38 mg/dL Blood Type O POSITIVE Antibody Screen NEGATIVE Meds: Medications Generic Name Dose Route Start Last Admin Trade Name Freq PRN Reason Stop Dose Admin Sodium Chloride 1,000 mls @ 999 mls/hr 06/28/17 13:53 06/28/17 13:57 Normal Saline IV 06/28/17 14:53 Not Given STAT ONE Magnesium Sulfate 1 gm/ Sodium 52 mls @ 104 mls/hr 06/28/17 14:30 06/28/17 14 :29 Chloride IV 06/28/17 14:59 104 mls/hr ONETIME ONE Administration Sodium Chloride 10 ml 06/28/17 12:37 06/28/17 12:55 Saline Flush FLUSH 10 ml ASDIRECTED PRN Administration Keep Vein Open Sodium Chloride 2.5 ml 06/28/17 12:37 06/28/17 12:55 Saline Flush FLUSH 2.5 ml ASDIRECTED PRN Administration Keep Vein Open Discontinued Medications Generic Name Dose Route Start Last Admin Trade Name Nbaq PRN Reason Stop Dose Admin Al Hydroxide/Mg Hydroxide 15 0 ml 06/28/17 13:53 06/28/17 13:58 ml/ Metoclopramide HCl 5 mg/ PO 06/28/17 13:54 25 each Lidocaine HCl 5 ml ONETIME ONE Administration Pantoprazole Sodium 80 mg/ 100 mls @ 10 mls/hr 06/28/17 12:45 Sodium Chloride IV .Continuous TAMMIE Sodium Chloride 1,000 mls @ 999 mls/hr 06/28/17 12:38 06/28/17 13:56 Normal Saline IV 06/28/17 13:38 999 mls/hr STAT ONE Administration Lorazepam 2 mg 06/28/17 12:38 06/28/17 12:54 Ativan IVPUSH 06/28/17 12:39 2 mg ONETIME ONE Administration Magnesium Sulfate 1 gm 06/28/17 14:15 06/28/17 14:30 Magnesium Sulfate 50% IV 06/28/17 14:16 Not Given ONETIME ONE Ondansetron HCl 4 mg 06/28/17 12:38 06/28/17 12:54 Zofran IVPUSH 06/28/17 12:39 4 mg ONETIME ONE Administration Pantoprazole Sodium 80 mg 06/28/17 12:38 06/28/17 12:54 Protonix Iv IVPUSH 06/28/17 12:39 80 mg .BOLUS ONE Administration Thiamine HCl 100 mg 06/28/17 14:18 06/28/17 14:29 Vitamin B-1 PO 06/28/17 14:19 100 mg ONETIME ONE Administration Departure - Departure Time of Disposition: 15:00 Disposition: Home, Self-Care 01 Condition: Good Clinical Impression: Alcoholism /alcohol abuse Vomiting Qualifiers: Vomiting type: unspecified Vomiting Intractability: non-intractable Nausea presence: with nausea Qualified Code(s): R11.2 - Nausea with vomiting, unspecified Abdominal pain Qualifiers: Abdominal location: generalized Qualified Code(s): R10.84 - Generalized abdominal pain - Discharge Information Referrals: PCP,None [Primary Care Provider] - Forms: ED Department Discharge Additional Instructions: The following information is given to patients seen in the emergency department who are being discharged to home. This information is to outline your options for follow-up care. We provide all patients seen in our emergency department with a follow-up referral. The need for follow-up, as well as the timing and circumstances, are variable depending upon the specifics of your emergency department visit. If you don't have a primary care physician on staff, we will provide you with a referral. We always advise you to contact your personal physician following an emergency department visit to inform them of the circumstance of the visit and for follow-up with them and/or the need for any referrals to a consulting specialist. The emergency department will also refer you to a specialist when appropriate. This referral assures that you have the opportunity for followup care with a specialist. All of these measure are taken in an effort to provide you with optimal care, which includes your followup. Under all circumstances we always encourage you to contact your private physician who remains a resource for coordinating your care. When calling for followup care, please make the office aware that this follow-up is from your recent emergency room visit. If for any reason you are refused follow-up, please contact the [facility] emergency department at and ask to speak to the emergency department charge nurse. [facility] Primary care- Internal Medicine and Family [address] [address] Please use all medications as prescribed and do not drink alcohol. Push hydration such as water Gatorade and eat a bland diet. Please seek treatment program and help with your alcohol use as we discussed. Return to ER as needed as discussed. If you stay in the area please contact our clinic for a follow-up appointment oozing resources given to above. - My Orders Last 24 Hours: My Active Orders 06/28/17 12:37 EKG Documentation Completion [RC] STAT Oxygen Therapy, ED [RC] ASDIRECTED Pulse Oximetry [RC] ASDIRECTED Sodium Chloride 0.9% [Saline Flush] 10 ml FLUSH ASDIRECTED PRN Sodium Chloride 0.9% [Saline Flush] 2.5 ml FLUSH ASDIRECTED PRN Saline Lock Insert [OM.PC] Stat 06/28/17 12:44 DRUG SCREEN, URINE [URCHEM] Stat UA W/MICROSCOPIC [URIN] Stat 06/28/17 13:53 Sodium Chloride 0.9% [Normal Saline] 1,000 ml IV STAT 06/28/17 14:30 Magnesium Sulfate [Magnesium Sulfate 50%] 1 gm Sodium Chloride 0.9% [Normal Saline] 50 ml IV ONETIME - Assessment/Plan Last 24 Hours: My Active Orders 06/28/17 12:37 EKG Documentation Completion [RC] STAT Oxygen Therapy, ED [RC] ASDIRECTED Pulse Oximetry [RC] ASDIRECTED Sodium Chloride 0.9% [Saline Flush] 10 ml FLUSH ASDIRECTED PRN Sodium Chloride 0.9% [Saline Flush] 2.5 ml FLUSH ASDIRECTED PRN Saline Lock Insert [OM.PC] Stat 06/28/17 12:44 DRUG SCREEN, URINE [URCHEM] Stat UA W/MICROSCOPIC [URIN] Stat 06/28/17 13:53 Sodium Chloride 0.9% [Normal Saline] 1,000 ml IV STAT 06/28/17 14:30 Magnesium Sulfate [Magnesium Sulfate 50%] 1 gm Sodium Chloride 0.9% [Normal Saline] 50 ml IV ONETIME
[2017-06-28] MEDS: Sodium Chloride 0.9% 1,000 ML IV ONE ×2 (12:54→13:56)
[2017-06-28] MEDS ORDERED: Sodium Chloride 0.9% 1,000 ML IV ONE (13:53)
[2017-06-28] MEDS ORDERED: Alum Hydrox/Mag Hydrox/Simeth 15 ML, Metoclopramide 5 MG, Lidocaine 2% 5 ML PO ONE ×3 (13:53)
[2017-06-28 14:03] LABS: CHLORIDE,CL 97 mmol/L (98-107); SODIUM,NA 135 mmol/L (136-148)
[2017-06-28] MEDS ORDERED: Magnesium Sulfate (4.06 MEQ/ML) 1 GM/2 ML SDV IV ONE (14:15)
[2017-06-28] MEDS ORDERED: Thiamine 100 MG Tab PO ONE (14:18)
[2017-06-28 15:36] VITALS: BP 136/86
== END 2017-06-28 15:38 | disposition home or self-care (01) ==
LOC: MW.ED 12:22
DX: F10.20 Alcohol dependence, uncomplicated (principal); R10.84 Generalized abdominal pain; I10 Essential (primary) hypertension; Z79.899 Other long term (current) drug therapy
CPT/HCPCS: 36415; 80053; 80305; 81001; 82150; 83690; 83735; 85025; 85610; 86850; 86900; 86901; 93005; 96361; 96365; 96375; 99284; A9270; C9113; G0480; J2060; J2405; J3475; J7040; J7050

== ENCOUNTER 2017-07-04 12:26 | Emergency (ER) | payer MEDICAID ==
--- NOTE | 2017-07-04 12:53 | EDM.PDOC ---
ED HPI GENERAL MEDICAL PROBLEM - General Chief Complaint: Medication Administration Stated Complaint: UNK Time Seen by Provider: 07/04/17 12:49 Source of Information: Reports: Patient History Limitations: Reports: No Limitations - History of Present Illness INITIAL COMMENTS - FREE TEXT/NARRATIVE: HISTORY AND PHYSICAL: []32-year-old male that is well known to the ER staff presented to the emergency room requesting Ativan as he has been out for the last 2 days History of Present Illness: []Patient has history of alcohol abuse and intoxication. a strong smell of alcohol is present , he states that he fell a few days ago and has back pain. Patient was assessed in the emergency room for this back pain by Dr. Arreola and again the following day by Dr. Banerjee. He states his last drink was this morning. Review of Systems: As per history of present illness and below otherwise all systems reviewed and negative. Past medical history: As per history of present illness and as reviewed below otherwise noncontributory. Surgical history: As per history of present illness and as reviewed below otherwise noncontributory. Social history: No reported history of drug or alcohol abuse. Family history: As per history of present illness and as reviewed below otherwise noncontributory. Physical exam: He is sleeping in the exam chair and needed to be awakened for examination, pleasant man answering questions appropriately/with slight slurring of his words. HEENT: Atraumatic, normocehpalic, pupils reactive, negative for conjunctival pallor or scleral icterus, mucous membranes moist, throat clear, neck supple, nontender, trachea midline. Lungs: Clear to auscultation, breath sounds equal bilaterally, chest non tender. Complaining of left sided back/rib pain Heart: S1S2, regular, negative for clicks, rubs, or JVD. Abdomen: Soft, nondistended, nontender. Negative for masses or hepatossplenmegaly. Negative for costovertebral tenderness. Pelvis: Stable nontender. Genitourinary: Deferred. Rectal: Deferred Extremities: Atraumatic, negative for cords or calf pain. Neurovascular unremarkable. Neuro: Awake, alert, oriented. Cranial nerves II through XII unremarkable. Cerebellum unremarkable. Motor and sensory unremarkable throughout. Exam nonfocal. Diagnostics: []Chest x-ray CBC CMP ETOH Therapeutics: [] Impression: [] Plan: [] Definitive disposition and diagnosis as appropriate pending reevaluation and review of above. Onset: Gradual Duration: Chronic Location: Reports: Chest, Generalized lower back pain Pain Score (Numeric/FACES): 7 - Related Data Allergies Allergy/AdvReac Type Severity Reaction Status Date / Time No Known Allergies Allergy Verified 07/04/17 12:29 Home Meds: Home Meds Venlafaxine [Effexor XR] 75 mg PO DAILY 06/21/17 [History] Past Medical History - Past Health History Medical/Surgical History: Denies Medical/Surgical History HEENT History: Reports: None Cardiovascular History: Reports: Hypertension Respiratory History: Reports: Other (See Below) Other Respiratory History: pneumonia- recently hospitalized in [place] Gastrointestinal History: Reports: None Other Gastrointestinal History: states has liver failure Genitourinary History: Reports: None Musculoskeletal History: Reports: None Neurological History: Reports: Seizure, Other (See Below) Other Neuro History: alcohol withdrawl seizure in the past. Psychiatric History: Reports: Addiction, Anxiety Other Psychiatric History: etoh abuse, states " have gone through withdrawls in the past". when pt asked if this felt like withdrawls he stated "no". Anxiety and taking Ativan for it Endocrine/Metabolic History: Reports: Obesity/BMI 30+ Hematologic History: Reports: None Immunologic History: Reports: None Oncologic (Cancer) History: Reports: None Dermatologic History: Reports: None - Infectious Disease History Infectious Disease History: Reports: None - Past Surgical History Head Surgeries/Procedures: Reports: None HEENT Surgical History: Reports: None Cardiovascular Surgical History: Reports: None Respiratory Surgical History: Reports: None GI Surgical History: Reports: None Male Surgical History: Reports: None Neurological Surgical History: Reports: None Musculoskeletal Surgical History: Reports: None Oncologic Surgical History: Reports: None Social & Family History - Family History Family Medical History: Noncontributory Cardiac: Reports: [place] Neurological: Reports: TIA Psychiatric: Reports: Other (See Below) Other Psychiatric Family History: etoh abuse - Tobacco Use Smoking Status *Q: Never Smoker Second Hand Smoke Exposure: No - Caffeine Use Caffeine Use: Reports: None Caffeine Use Comment: pt unable to answer - Alcohol Use Days Per Week of Alcohol Use: 7 Number of Drinks Per Day: 6 Total Drinks Per Week: 42 - Recreational Drug Use Recreational Drug Use: No ED ROS GENERAL - Review of Systems Review Of Systems: ROS reveals no pertinent complaints other than HPI. ED EXAM, GENERAL - Physical Exam Exam: See Below (see dictation) Course - Vital Signs Last Recorded V/S: Last Vital Signs Temp 36.3 C 07/04/17 13:27 Pulse 87 07/04/17 13:27 Resp 15 07/04/17 13:27 BP 110/79 07/04/17 13:27 Pulse Ox 97 07/04/17 13:27 - Orders/Labs/Meds Orders: Active Orders 24 hr Category Date Time Status Chest 2V [CR] Stat Exams 07/04/17 12:51 Taken Departure - Departure Time of Disposition: 13:57 Disposition: Home, Self-Care 01 Condition: Good Clinical Impression: Alcoholism /alcohol abuse Alcohol intoxication Qualifiers: Complication of substance-induced condition: uncomplicated Qualified Code(s): F10.920 - Alcohol use, unspecified with intoxication, uncomplicated - Discharge Information Instructions: Alcohol Intoxication, [id number] Referrals: PCP,None [Primary Care Provider] - Forms: ED Department Discharge Additional Instructions: The following information is given to patients seen in the emergency department who are being discharged to home. This information is to outline your options for follow-up care. We provide all patients seen in our emergency department with a follow-up referral. The need for follow-up, as well as the timing and circumstances, are variable depending upon the specifics of your emergency department visit. If you don't have a primary care physician on staff, we will provide you with a referral. We always advise you to contact your personal physician following an emergency department visit to inform them of the circumstance of the visit and for follow-up with them and/or the need for any referrals to a consulting specialist. The emergency department will also refer you to a specialist when appropriate. This referral assures that you have the opportunity for followup care with a specialist. All of these measure are taken in an effort to provide you with optimal care, which includes your followup. Under all circumstances we always encourage you to contact your private physician who remains a resource for coordinating your care. When calling for followup care, please make the office aware that this follow-up is from your recent emergency room visit. If for any reason you are refused follow-up, please contact the [facility] emergency department at and asked to speak to the emergency department charge nurse. You need to be sent to detox Medication is being given to you today Examination no signs of any rib fractures was present your previous fall - My Orders Last 24 Hours: My Active Orders 07/04/17 12:51 Chest 2V [CR] Stat - Assessment/Plan Last 24 Hours: My Active Orders 07/04/17 12:51 Chest 2V [CR] Stat
[2017-07-04 14:56] VITALS: BP 163/81
--- NOTE | 2017-07-05 15:47 | CR ---
EXAM DATE: 07/04/17 PATIENT'S AGE: 32 Patient: ISAAK HARDWICK Facility: [place], [place] Site . Site : 1985 Study: XRay Chest [id number] 1:35:48 PM Ordering Physician: Doctor Yanez Final Report: INDICATION: Chest pain. Shortness of breath. TECHNIQUE: Chest 2 views. COMPARISON: 06/24/2017, 06/22/2017 FINDINGS: Cardiovascular and mediastinum: Heart size is normal. Pulmonary vasculature is normal. Mediastinum is within normal limits. Lungs and pleural spaces: Likely small granuloma left lower lobe. No lobar consolidation. No edema. No pleural effusion. No pneumothorax. Bones and soft tissues: No acute findings. IMPRESSION: No acute pulmonary process. Dictated by Chilo Braswell MD @ Jul 04 2017 1:55PM (Electronic Signature) Report Signed by Proxy. BULL
== END 2017-07-04 14:54 ==
LOC: MW.ED 12:26
DX: F10.220 Alcohol dependence with intoxication, uncomplicated (principal); I10 Essential (primary) hypertension; Z79.899 Other long term (current) drug therapy
CPT/HCPCS: 71046; 71046-26; 99284

== ENCOUNTER 2017-07-05 08:39 | Emergency (ER) | payer MEDICAID ==
--- NOTE | 2017-07-05 08:54 | EDM.PDOC ---
ED HPI GENERAL MEDICAL PROBLEM - General Chief Complaint: Drug or Alcohol Abuse Stated Complaint: AMBULANCE Time Seen by Provider: 07/05/17 08:50 Source of Information: Reports: Patient - History of Present Illness INITIAL COMMENTS - FREE TEXT/NARRATIVE: HISTORY AND PHYSICAL: History of present illness: [Patient presents via EMS The patient has came in daily by ambulance since nearly. He always has these stated some complaint of withdrawing from alcohol and Ativan he is stating he is having hallucinations which is his usual general complaint he has not loosely hallucinating audio or visual on exploring what his hallucinations are he does not have any. He was just released from detox from yesterday's visit where he was sent to detox which is routine hence he has not had a drink of alcohol since 11 AM yesterday but he is in no distress he simply walked out of the police station and called an ambulance for a ride here He has no fever nausea vomiting diarrhea constipation chest pain shortness breath headache dizziness or palpitation no bowel or urine symptoms ] Review of systems: As per history of present illness and below otherwise all systems reviewed and negative. Past medical history: As per history of present illness and as reviewed below otherwise noncontributory. Surgical history: As per history of present illness and as reviewed below otherwise noncontributory. Social history: No reported history of drug or alcohol abuse. Family history: As per history of present illness and as reviewed below otherwise noncontributory. Physical exam: HEENT: Atraumatic, normocephalic, pupils reactive, negative for conjunctival pallor or scleral icterus, mucous membranes moist, throat clear, neck supple, nontender, trachea midline. Lungs: Clear to auscultation, breath sounds equal bilaterally, chest nontender. Heart: S1S2, regular, negative for clicks, rubs, or JVD. Abdomen: Soft, nondistended, nontender. Negative for masses or hepatosplenomegaly. Negative for costovertebral tenderness. Pelvis: Stable nontender. Genitourinary: Deferred. Rectal: Deferred. Extremities: Atraumatic, negative for cords or calf pain. Neurovascular unremarkable. Neuro: Awake, alert, oriented. Cranial nerves II through XII unremarkable. Cerebellum unremarkable. Motor and sensory unremarkable throughout. Exam nonfocal. Diagnostics: [None ordered Nursing staff did perform an EKG during triage ] Therapeutics: [] none Impression: [] alcohol use abuse and dependence Discharged home Definitive disposition and diagnosis as appropriate pending reevaluation and review of above. - Related Data Allergies Allergy/AdvReac Type Severity Reaction Status Date / Time No Known Allergies Allergy Verified 07/05/17 08:41 Home Meds: Home Meds Venlafaxine [Effexor XR] 75 mg PO DAILY 06/21/17 [History] Past Medical History - Past Health History Medical/Surgical History: Denies Medical/Surgical History HEENT History: Reports: None Cardiovascular History: Reports: Hypertension Respiratory History: Reports: Other (See Below) Other Respiratory History: pneumonia- recently hospitalized in [place] Gastrointestinal History: Reports: None Other Gastrointestinal History: states has liver failure Genitourinary History: Reports: None Musculoskeletal History: Reports: None Neurological History: Reports: Seizure, Other (See Below) Other Neuro History: alcohol withdrawl seizure in the past. Psychiatric History: Reports: Addiction, Anxiety Other Psychiatric History: etoh abuse, states " have gone through withdrawls in the past". when pt asked if this felt like withdrawls he stated "no". Anxiety and taking Ativan for it Endocrine/Metabolic History: Reports: Obesity/BMI 30+ Hematologic History: Reports: None Immunologic History: Reports: None Oncologic (Cancer) History: Reports: None Dermatologic History: Reports: None - Infectious Disease History Infectious Disease History: Reports: None - Past Surgical History Head Surgeries/Procedures: Reports: None HEENT Surgical History: Reports: None Cardiovascular Surgical History: Reports: None Respiratory Surgical History: Reports: None GI Surgical History: Reports: None Male Surgical History: Reports: None Neurological Surgical History: Reports: None Musculoskeletal Surgical History: Reports: None Oncologic Surgical History: Reports: None Social & Family History - Family History Family Medical History: Noncontributory Cardiac: Reports: [place] Neurological: Reports: TIA Psychiatric: Reports: Other (See Below) Other Psychiatric Family History: etoh abuse - Tobacco Use Smoking Status *Q: Never Smoker Second Hand Smoke Exposure: No - Caffeine Use Caffeine Use: Reports: None Caffeine Use Comment: pt unable to answer - Alcohol Use Days Per Week of Alcohol Use: 7 Number of Drinks Per Day: 6 Total Drinks Per Week: 42 - Recreational Drug Use Recreational Drug Use: No ED ROS GENERAL - Review of Systems Review Of Systems: ROS reveals no pertinent complaints other than HPI. ED EXAM, GENERAL - Physical Exam Exam: See Below Departure - Departure Time of Disposition: 08:52 Disposition: Home, Self-Care 01 Condition: Good Clinical Impression: Alcohol abuse - Discharge Information Additional Instructions: The following information is given to patients seen in the emergency department who are being discharged to home. This information is to outline your options for follow-up care. We provide all patients seen in our emergency department with a follow-up referral. The need for follow-up, as well as the timing and circumstances, are variable depending upon the specifics of your emergency department visit. If you don't have a primary care physician on staff, we will provide you with a referral. We always advise you to contact your personal physician following an emergency department visit to inform them of the circumstance of the visit and for follow-up with them and/or the need for any referrals to a consulting specialist. The emergency department will also refer you to a specialist when appropriate. This referral assures that you have the opportunity for follow-up care with a specialist. All of these measure are taken in an effort to provide you with optimal care, which includes your follow-up. Under all circumstances we always encourage you to contact your private physician who remains a resource for coordinating your care. When calling for follow-up care, please make the office aware that this follow-up is from your recent emergency room visit. If for any reason you are refused follow-up, please contact the [facility] emergency department at and asked to speak to the emergency department charge nurse.
[2017-07-05 09:16] VITALS: BP 132/90
== END 2017-07-05 09:14 | disposition home or self-care (01) ==
LOC: MW.ED 08:39
DX: F10.239 Alcohol dependence with withdrawal, unspecified (principal); I10 Essential (primary) hypertension; Z79.899 Other long term (current) drug therapy
CPT/HCPCS: 93005; 99284-25

== ENCOUNTER 2017-10-07 16:20 | Emergency (ER) | payer MEDICAID ==
[2017-10-07 16:50] VITALS: BP 129/92
[2017-10-07] MEDS ORDERED: MVI, Adult with Vitamin K 10 ML, Thiamine 100 MG, Folic Acid 1 MG in Sodium Chloride 0.... IV ONE ×4 (16:56)
[2017-10-07] MEDS ORDERED: Sodium Chloride 0.9% 2.5 ML Syringe FLUSH PRN (16:56)
[2017-10-07] MEDS ORDERED: Sodium Chloride 0.9% 1,000 ML IV ONE (16:56)
[2017-10-07] MEDS ORDERED: Sodium Chloride 0.9% 10 ML Syringe FLUSH PRN (16:56)
--- NOTE | 2017-10-07 16:59 | EDM.PDOCBH ---
ED HPI GENERAL MEDICAL PROBLEM - General Chief Complaint: Drug or Alcohol Abuse Stated Complaint: DETOX Time Seen by Provider: 10/07/17 16:57 Source of Information: Reports: Patient, Police History Limitations: Reports: No Limitations - History of Present Illness INITIAL COMMENTS - FREE TEXT/NARRATIVE: HISTORY AND PHYSICAL: []32-year-old male presenting per law enforcement History of Present Illness: []Patient recently returned from [facility] where he went through rehabilitation he has been here 2 weeks and has been in the emergency department 5 times with request for detox Review of Systems: As per history of present illness and below otherwise all systems reviewed and negative. Past medical history: As per history of present illness and as reviewed below otherwise noncontributory. Surgical history: As per history of present illness and as reviewed below otherwise noncontributory. Social history: No reported history of drug. Family history: As per history of present illness and as reviewed below otherwise noncontributory. Physical exam: Drowsy slurring his words. States that he took 16 ounces of whiskey today. States that he wants help. HEENT: Atraumatic, normocehpalic, pupils reactive, negative for conjunctival pallor or scleral icterus, mucous membranes moist, throat clear, neck supple, nontender, trachea midline. Lungs: Clear to auscultation, breath sounds equal bilaterally, chest non tender. Heart: S1S2, regular, negative for clicks, rubs, or JVD. Abdomen: Soft, nondistended, nontender. Negative for masses or hepatossplenmegaly. Negative for costovertebral tenderness. Pelvis: Stable nontender. Genitourinary: Deferred. Rectal: Deferred Extremities: Atraumatic, negative for cords or calf pain. Neurovascular unremarkable. Neuro: Awake, alert, oriented. Cranial nerves II through XII unremarkable. Cerebellum unremarkable. Motor and sensory unremarkable throughout. Exam nonfocal. Diagnostics: []CBC CMP and PT/INR amylase lipase EKG Therapeutics: []IV banana bag Impression: []Alcohol abuse Plan: []Have discussed with this patient that no detoxes available here he needs to present to [facility] they have inpatient detox available Patient states he does have a person who can drive him there. Discussed my concerns about his continued alcohol abuse Have discussed counseling [facility] available at [facility] however no inpatient facility is available in [place]. He verbalized understanding of the discharge instructions, and a friend has been notified to pick him up and take him to [facility]. Definitive disposition and diagnosis as appropriate pending reevaluation and review of above. Onset: Today Duration: Chronic Location: Reports: Generalized Quality: Reports: Same as Previous Episode Severity: Moderate Improves with: Reports: None Worsens with: Reports: None Associated Symptoms: Reports: Weakness, Other (alcohol abuse) - Related Data Allergies Allergy/AdvReac Type Severity Reaction Status Date / Time No Known Allergies Allergy Verified 10/08/17 11:44 Home Meds: Home Meds ARIPiprazole [Abilify] 5 mg PO BID 09/30/17 [History] Acetaminophen/Diphenhydramine [Aceta-Gesic 325-12.5 mg Tablet] 1 tab PO ASDIRECTED PRN 09/30/17 [History] Clotrimazole [Clotrimazole 1%] 1 dose TOP BID 09/30/17 [History] Doxepin [SINEquan] 100 mg PO BEDTIME 09/30/17 [History] Gabapentin [Neurontin] 400 mg PO Q8HR 09/30/17 [History] Ibuprofen 200 mg PO DAILY 09/30/17 [History] Ondansetron [Ondansetron ODT] 4 mg PO ASDIRECTED PRN 09/30/17 [History] Prazosin HCl [Prazosin] 2 mg PO BEDTIME PRN 09/30/17 [History] Venlafaxine [Venlafaxine HCl ER] 150 mg PO DAILY 09/30/17 [History] cloNIDine HCl [Kapvay] 0.1 mg PO BID 09/30/17 [History] cloNIDine [Catapres] 0.1 mg PO TID 09/30/17 [History] hydrOXYzine pamoate [Hydroxyzine Pamoate] 50 mg PO Q8HR 09/30/17 [History] hydrOXYzine pamoate [Hydroxyzine Pamoate] 100 mg PO BID 09/30/17 [History] traZODone HCl [Trazodone HCl] 50 mg PO BEDTIME 09/30/17 [History] Albuterol/Ipratropium [DuoNeb 3.0-0.5 MG/3 ML] 3 ml NEB Q4HRRT PRN neb 07/27/ 18 [Rx] Folic Acid 1 mg PO BEDTIME #90 tablet 10/01/17 [Rx] Thiamine HCl [B-1] 100 mg PO DAILY #30 tablet 10/01/17 [Rx] Past Medical History - Past Health History Medical/Surgical History: Denies Medical/Surgical History HEENT History: Reports: None Cardiovascular History: Reports: Hypertension Respiratory History: Reports: Other (See Below) Other Respiratory History: pneumonia- recently hospitalized in [place] Gastrointestinal History: Reports: None Other Gastrointestinal History: states has liver failure Genitourinary History: Reports: None Musculoskeletal History: Reports: None Neurological History: Reports: Seizure, Other (See Below) Other Neuro History: alcohol withdrawl seizure in the past. Psychiatric History: Reports: Addiction, Anxiety, Depression Other Psychiatric History: etoh abuse, states " have gone through withdrawls in the past". when pt asked if this felt like withdrawls he stated "no". Anxiety and taking Ativan for it Endocrine/Metabolic History: Reports: Obesity/BMI 30+ Hematologic History: Reports: None Immunologic History: Reports: None Oncologic (Cancer) History: Reports: None Dermatologic History: Reports: None - Infectious Disease History Infectious Disease History: Reports: None - Past Surgical History Head Surgeries/Procedures: Reports: None HEENT Surgical History: Reports: None Cardiovascular Surgical History: Reports: None Respiratory Surgical History: Reports: None GI Surgical History: Reports: None Male Surgical History: Reports: None Neurological Surgical History: Reports: None Musculoskeletal Surgical History: Reports: None Oncologic Surgical History: Reports: None Social & Family History - Family History Family Medical History: Noncontributory Cardiac: Reports: RI Neurological: Reports: TIA Psychiatric: Reports: Other (See Below) Other Psychiatric Family History: etoh abuse - Tobacco Use Smoking Status *Q: Unknown Ever Smoked - Caffeine Use Caffeine Use: Reports: None Caffeine Use Comment: pt unable to answer - Recreational Drug Use Recreational Drug Use: No ED ROS GENERAL - Review of Systems Review Of Systems: ROS reveals no pertinent complaints other than HPI. ED EXAM, BEHAVIORAL HEALTH - Physical Exam Exam: See Below (see dictation) COURSE, BEHAVIORAL HEALTH COMP - Course Vital Signs: Last Vital Signs Temp 36.5 C 10/07/17 16:44 Pulse 126 H 10/07/17 16:44 Resp 18 10/07/17 16:44 BP 129/92 H 10/07/17 16:44 Pulse Ox 95 10/07/17 16:44 Orders, Labs, Meds: Laboratory Tests 10/07/17 10/07/17 Range/Units 17:15 17:15 WBC 14.85 H (4.0-11.0) K/uL RBC 6.57 H (4.50-5.90) M/uL Hgb 18.7 H (13.0-17.0) g/dL Hct 53.2 H (38.0-50.0) % MCV 81.0 (80.0-98.0) fL MCH 28.5 (27.0-32.0) pg MCHC 35.2 (31.0-37.0) g/dL RDW Std Deviation 43.3 (28.0-62.0) fl RDW Coeff of Jennifer 15 (11.0-15.0) % Plt Count 310 (150-400) K/uL MPV 9.00 (7.40-12.00) fL Neut % (Auto) 63.5 (48.0-80.0) % Lymph % (Auto) 27.3 (16.0-40.0) % [place] % (Auto) 8.5 (0.0-15.0) % Eos % (Auto) 0.2 (0.0-7.0) % Baso % (Auto) 0.5 (0.0-1.5) % Neut # (Auto) 9.4 H (1.4-5.7) K/uL Lymph # (Auto) 4.1 H (0.6-2.4) K/uL [place] # (Auto) 1.3 H (0.0-0.8) K/uL Eos # (Auto) 0.0 (0.0-0.7) K/uL Baso # (Auto) 0.1 (0.0-0.1) K/uL Nucleated RBC % 0.0 /100WBC Nucleated RBCs # 0 K/uL Sodium 145 (136-148) mmol/L Potassium 3.5 (3.5-5.1) mmol/L Chloride 105 (98-107) mmol/L Carbon Dioxide 23.7 (21.0-32.0) mmol/L BUN 7 (7.0-18.0) mg/dL Creatinine 1.1 (0.8-1.3) mg/dL Est Cr Clr Drug Dosing 94.62 mL/min Estimated GFR (MDRD) > 60.0 ml/min Glucose 120 H (74-106) mg/dL Calcium 9.1 (8.5-10.1) mg/dL Total Bilirubin 0.4 (0.2-1.0) mg/dL AST 56 H (15-37) IU/L ALT 67 H (14-63) IU/L Alkaline Phosphatase 115 (46-116) U/L Total Protein 9.2 H (6.4-8.2) g/dL Albumin 4.3 (3.4-5.0) g/dL Globulin 4.9 H (2.0-3.5) g/dL Albumin/Globulin Ratio 0.9 L (1.3-2.8) Amylase 30 (25-115) U/L Lipase 119 (73-393) U/L Ethyl Alcohol 323 mg/dL Medications Discontinued Medications Generic Name Dose Route Start Last Admin Trade Name Freq PRN Reason Stop Dose Admin Multivitamins/Minerals 10 ml/ 1,011.2 mls @ 250 drops/hr 10/07/17 16:56 10/07 17:30 Thiamine HCl 100 mg/ Folic IV 10/10/17 05:36 250 drops/hr Acid 1 mg/ Sodium Chloride ONETIME ONE Administration Sodium Chloride 1,000 mls @ 999 mls/hr 10/07/17 16:56 10/07/17 17:31 Normal Saline IV 10/07/17 17:56 999 mls/hr STAT ONE Administration Sodium Chloride 10 ml 10/07/17 16:56 Saline Flush FLUSH ASDIRECTED PRN Keep Vein Open Sodium Chloride 2.5 ml 10/07/17 16:56 Saline Flush FLUSH ASDIRECTED PRN Keep Vein Open Departure - Departure Time of Disposition: 18:40 Disposition: Home, Self-Care 01 Condition: Good Clinical Impression: Alcohol abuse - Discharge Information *PRESCRIPTION DRUG MONITORING PROGRAM REVIEWED*: Not Applicable *COPY OF PRESCRIPTION DRUG MONITORING REPORT IN PATIENT LEOPOLDO: Not Applicable Instructions: Alcohol Use Disorder, What You Need to Know About Alcohol Abuse and Dependence, Adult Referrals: PCP,None [Primary Care Provider] - Forms: ED Department Discharge Additional Instructions: The following information is given to patients seen in the emergency department who are being discharged to home. This information is to outline your options for follow-up care. We provide all patients seen in our emergency department with a follow-up referral. The need for follow-up, as well as the timing and circumstances, are variable depending upon the specifics of your emergency department visit. If you don't have a primary care physician on staff, we will provide you with a referral. We always advise you to contact your personal physician following an emergency department visit to inform them of the circumstance of the visit and for follow-up with them and/or the need for any referrals to a consulting specialist. The emergency department will also refer you to a specialist when appropriate. This referral assures that you have the opportunity for followup care with a specialist. All of these measure are taken in an effort to provide you with optimal care, which includes your followup. Under all circumstances we always encourage you to contact your private physician who remains a resource for coordinating your care. When calling for followup care, please make the office aware that this follow-up is from your recent emergency room visit. If for any reason you are refused follow-up, please contact the [facility] emergency department at and asked to speak to the emergency department charge nurse. Have discussed detox with this patient that he needs to present to [facility] where they have an inpatient capabilities Have discussed with this patient that no detoxes available here he needs to present to [facility] they have inpatient detox available Patient states he does have a person who can drive him there. Discussed my concerns about his continued alcohol abuse Have discussed counseling is available at [facility] however no inpatient facility is available in [place]. He verbalized understanding of the discharge instructions, and a friend has been notified to pick him up and take him to [facility].
[2017-10-07 18:04] LABS: CHLORIDE,CL 105 mmol/L (98-107); SODIUM,NA 145 mmol/L (136-148)
== END 2017-10-07 18:41 | disposition home or self-care (01) ==
LOC: MW.ED 16:20
DX: F10.10 Alcohol abuse, uncomplicated (principal); Y90.8 Blood alcohol level of 240 mg/100 ml or more; I10 Essential (primary) hypertension; Z79.899 Other long term (current) drug therapy
CPT/HCPCS: 36415; 80053; 82150; 83690; 85025; 96365; 99284; G0480; J3411; J7040; 99283